=== PATIENT | female | born 1930 | race Caucasian/White ===

== ENCOUNTER 2017-09-07 11:09 | Inpatient (IN) | payer OTHER ==
[~2017-09-07] VITALS: Ht 157.5 cm; Wt 73.5 kg
[~2017-09-07 11:09] MED LIST: ASPIRIN EC81 M1 PO; ATIVAN0.5 M1 PO; ATIVAN0.5 MG PO; BACTROBAN OINT.30 GM TOP; CIPROFLOXACIN500 MG PO; ECOTRIN81 MG PO; JANUMET 500 MG-1 TAB PO; LISINOPRIL2.5 M1 PO; MASON NATURAL2000 IU PO; METHIMAZOLE5 M1 PO; METHIMAZOLE5 MG PO; MIRTAZAPINE15 M2 PO; MIRTAZAPINE15 MG PO; NYSTATIN100000 U/1 TOP; PRINIVIL 5MG5 MG PO; PROBIOTIC FORM1 EACH PO; PROTONIX 40MG T40 MG PO; PROTONIX40 M3 PO; SINGULAIR10 M1 PO; SINGULAIR10 MG PO; TRIAMTERENE AND1 CAP PO; TRIAMTERENE-HC1 EAC3 PO; VITAMIN D1000 IU PO; VITAMIN D31000 UNI2 PO
--- NOTE | 2017-09-07 11:16 | ED AMS/SEIZURE/WEAK/DIZZY ---
History of Present Illness General Chief Complaint: Altered Mental Status Stated Complaint: BIBA ALTERED MENTAL STATUS Source: patient, family, old records, EMS Exam Limitations: dementia Vital Signs & Intake/Output Vital Signs & Intake/Output Vital Signs Date Time Temp Pulse Resp B/P B/P Pulse O2 O2 Flow FiO2 Mean Ox Delivery Rate 09/09 0632 98.4 96 19 140/80 94 Room Air 09/08 2118 98.1 104 18 142/80 96 Room Air 09/08 1439 98.0 97 18 130/80 98 Room Air ED Intake and Output 09/09 0000 09/08 1200 Intake Total 1460 920 Output Total Balance 1460 920 Intake, IV 1060 800 Intake, Oral 400 120 Number 1 1 Bowel Movements Allergies Coded Allergies: No Known Allergies (09/07/17) Reconcile Medications Aspirin (Ecotrin*) 81 MG TABLET.DR 1 TAB PO DAILY HEART HEALTH (Reported) Bacillus Coagulans/Inulin (Probiotic Formula Capsule) 1 BILLION CELL-250 MG CAPSULE 1 CAP PO DAILY GI (Reported) Cholecalciferol (Vitamin D3) 1,000 UNIT TABLET 1 TAB PO DAILY VITAMIN SUPPORT (Reported) Lisinopril 2.5 MG TABLET 1 TAB PO DAILY HEART (Reported) Lorazepam (Ativan) 0.5 MG TABLET 1 TAB PO BID ANXIETY (Reported) Methimazole 5 MG TABLET 1 TAB PO DAILY THYROID (Reported) Mirtazapine 15 MG TABLET 1 TAB PO QPM SLEEP (Reported) Montelukast Sodium (Singulair) 10 MG TABLET 1 TAB PO DAILY ALLERGIES ( Reported) Pantoprazole Sodium (Protonix) 40 MG TABLET.DR 1 TAB PO DAILY GI (Reported) Sitagliptin Phos/Metformin HCl (Janumet 50-500 MG Tablet) 50 MG-500 MG TABLET 2 TAB PO DAILY DIABETES (Reported) Sitagliptin Phos/Metformin HCl (Janumet 50-1,000 MG Tablet) 50 MG-1,000 MG TABLET 1 TAB PO QPM DIABETES (Reported) Triamterene/Hydrochlorothiazid (Triamterene-Hctz 37.5-25 MG Cp) 37.5 MG-25 MG CAPSULE 1 CAP PO DAILY HEART (Reported) Triage Nurses Notes Reviewed? yes Onset: Gradual Duration: getting worse Timing: recent history Severity: severe Severity Numbers: 7 HPI: Patient is a 86-year-old female with past medical history of Alzheimer's dementia hyperthyroidism and anxiety and hypertension which EMS states that the family is concerned of worsening altered mental status for the past 3 days where patient is unable to ambulate today and family noted urinary incontinence Patient is noted to be nauseous on arrival and afebrile Patient is complaining of chills with no pain History is limited due to dementia (Mt Siddiqui) Past History Medical History Any Pertinent Medical History? see below for history Cardiovascular: hypertension Gastrointestinal: GERD Psychiatric: anxiety Endocrine: diabetes, hyperthyroidism History of MRSA: No History of VRE: No History of CDIFF: No Influenza Vaccine: 10/25/12 Surgical History Surgical History: non-contributory, hysterectomy Psychosocial History Who do you live with Spouse Services at Home Home Health Aide (P), Physical Therapy What is your primary language Japanese Family History Hx Contributory? No (Mt Siddiqui) Review of Systems Review of Systems Constitutional: Reports: see HPI, weakness. EENTM: Reports: no symptoms. Respiratory: Reports: no symptoms. Cardiovascular: Reports: no symptoms. GI: Reports: see HPI, nausea. Genitourinary: Reports: see HPI. Musculoskeletal: Reports: no symptoms. Skin: Reports: no symptoms. Neurological/Psychological: Reports: no symptoms. Hematologic/Endocrine: Reports: no symptoms. Immunologic/Allergic: Reports: no symptoms. All Other Systems: Reviewed and Negative (Mt Siddiqui) Physical Exam Physical Exam General Appearance: no apparent distress, comfortable Head: atraumatic Eyes: Bilateral: normal appearance, PERRL, EOMI. Ears, Nose, Throat: normal pharynx, normal ENT inspection, hearing grossly normal Neck: normal inspection, supple Respiratory: chest non-tender, no respiratory distress Cardiovascular: regular rate/rhythm Gastrointestinal: soft, tenderness Extremities: bilateral upper extremity full active range of motion nontender Bilateral lower extremity noted nonpitting edema and generalized weakness patient unable to perform straight leg raise on each side due to weakness Nontender dermatomes intact pedal pulse +2 Neurologic/Psych: no motor/sensory deficits, awake, outpatient facility physical therapist II-XII nml as tested, disoriented x 3 Skin: intact, normal color Core Measures ACS in differential dx? No CVA/TIA Diagnosis No Sepsis Present: No Sepsis Focused Exam Completed? No (Mt Siddiqui) Progress Differential Diagnosis: arrythmia, anemia, benign positional vertigo, CVA/stroke , dehydration, drug intoxication, encephalitis, electrolyte imbalance, GI bleed, hypoglycemia, hypoxia, intracranial Hem., intracranial mass/tumor, labrynthitis, meningitis, migraine [place], multiple sclerosis, pneumonia, postural hypotension, presyncope, post-traumatic vertigo, sepsis, seizure disorder, subarachnoid Hem., UTI/pyelo, vertebrobasilar insuff Plan of Care: Orders Procedure Date/time Status CBC WITHOUT DIFFERENTIAL 09/09 599 Active BASIC ELECTROLYTES PLUS BUN&CR 09/09 599 Active Consistent Carbohydrate 1 09/08 L Complete Consistent Carbohydrate 1 09/08 D Active SWALLOW EVALUATION 09/08 UNK Active Evaluate Swallowing 09/08 UNK Complete MISSING MEDICATION FORM 09/08 UNK Active Current Medications Sig/Shaquille Start time Last Medication Dose Stop Time Status Admin Artificial Tears 2 GTT TID 09/08 1547 AC 09/08 (Tears Natural) 2053 Ceftriaxone Sodium 1,000 MG 1200 09/08 1200 AC 09/08 (Rocephin) 09/10 1201 1213 Aspirin Buffered 81 MG DAILY 09/08 0900 AC 09/08 (Ecotrin) 0831 Cholecalciferol 1,000 IU DAILY 09/08 0900 AC 09/08 (Vitamin D) 0831 Lactobacillus 1 CAP DAILY 09/08 0900 AC 09/08 Acidophilus 0831 (Probiotic) Methimazole 5 MG DAILY 09/08 0900 AC 09/08 (Tapazole 5 MG 0831 Tablet) Montelukast Sodium 10 MG DAILY 09/08 0900 AC 09/08 (Singulair) 0831 Omeprazole 40 MG DAILY AC 09/08 0700 AC 09/09 (Prilosec) 0556 Heparin Sodium 5,000 UNIT Q8 09/07 2200 AC 09/09 (Porcine) 0556 Lorazepam 0.5 MG BID 09/07 2100 AC 09/08 (Ativan) 09/14 Mirtazapine 15 MG QPM 09/07 2100 AC 09/08 (Remeron) 205 Insulin Aspart 0 TIDAC 09/07 1700 AC 09/08 (NovoLOG) 1725 Simethicone 40 MG Q6P PRN 09/07 1545 AC 09/07 (Mylicon) 2103 Acetaminophen 650 MG Q6P PRN 09/07 1500 AC (Tylenol) Laboratory Tests 09/09/17 0609: Sodium Pending, Potassium Pending, Chloride Pending, Carbon Dioxide Pending, Anion Gap Pending, BUN Pending, Creatinine Pending, BUN/Creatinine Ratio Pending , CBC w Diff Pending, WBC Pending, RBC Pending, Hgb Pending, Hct Pending, MCV Pending, MCH Pending, MCHC Pending, RDW Pending, Plt Count Pending, MPV Pending Patient upon initial evaluation was afebrile nontoxic appearing was following all commands appropriately patient had tenderness upon palpation of abdomen Patient has concerns of generalized weakness due to patient unable to lift each leg when requested The family does present stating that they've seen a significant decline in ambulatory status and worsening lethargy and confusion for the past week No specific acute onset altered mental status or unilateral weakness slurred speech or facial droop Patient had critical findings of hyponatremia and suspecting UTI CT scan images was unremarkable for acute process Discussed patient with Dr. Buckley who advises [facility] admission Discussed disposition plan with family members who were aware and agree and have no questions Diagnostic Imaging: Viewed by Me: CT Scan. Radiology Impression: no acute abnormality Initial ED EK BPM Prior EKG: unchanged Comments: PATIENT: RADHA BELLA PRESENT AGE: 86 PATIENT ACCOUNT NO: [id number] : [birth year] LOCATION: [facility] ORDERING PHYSICIAN: Mt BERGER SERVICE DATE: 09/07/17 EXAM TYPE: CAT - CT ABD & PELVIS W/O IV CONTRAS; CT CHEST WO IV CONTRAST EXAMINATION: CT CHEST, ABDOMEN AND PELVIS WITHOUT CONTRAST CLINICAL INFORMATION: Nausea. Abdominal pain. Acute mental status change. History of dementia. COMPARISON: Chest x-ray dated 08/30/2015. CT scan of the abdomen and pelvis dated 01/02/2013. CT scan of the chest dated 11/30/2012. Thyroid ultrasound dated 12/15/2012. TECHNIQUE: Multidetector CT helical images of the chest, abdomen and pelvis were performed noncontrast. The data set was reformatted in the coronal and sagittal planes and reviewed on an independent workstation. DLP: 526.13 mGy-cm. FINDINGS: CHEST: LUNGS: There is mild centrilobular emphysema and multiple variably sized 2-5 mm solid noncalcified pulmonary nodules are seen, including in the left upper lobe (series 4, image 163, 256), right upper lobe (series 4, image 203), right lower lobe (series 4, image 274, 290, 304, 316), right middle lobe (series 4, image 309, 310, 312), and left lower lobe (series 4, image 364). When compared to 2013, several of the larger nodules were present previously as well and are not significantly changed, though comparison is slightly limited due to thicker section imaging on prior CT scan. Not all of the smaller nodules were not definitely identified on previous exam. No focal pneumonia is seen. A calcified granuloma is also seen in the left upper lobe (series 4, image 205). No effusion or pneumothorax is seen. Mild narrowing of the trachea at the thoracic inlet is seen due to mass effect by the enlarged multinodular thyroid goiter the central airways are otherwise patent and unremarkable. LYMPHOVASCULAR STRUCTURES: Aortic and heart size are normal. No pericardial effusion is seen. Aortic valvular calcifications are seen. Mild coronary artery calcifications are noted. No significant mediastinal, hilar or axillary adenopathy is present. THYROID GLAND: Enlarged thyroid gland is seen with asymmetric enlargement and substernal extension of the left lobe. Multiple ill-defined nodules are seen throughout the thyroid gland with several of the nodules demonstrating varying degrees of calcifications. Findings are most consistent with a multinodular goiter, but follow-up thyroid ultrasound is advised for further characterization and to document stability of findings from prior thyroid ultrasound dated 12/15/2012. BONES: There is diffuse osteopenia. Ossification along the anterior longitudinal ligament is seen. No suspicious bone findings. ABDOMEN AND PELVIS: Evaluation is limited due to beam hardening artifact related to the patient's arms by the sides. LIVER, GALLBLADDER, BILIARY TREE: Liver normal size and attenuation. No focal cystic or solid mass on noncontrast study. No intra-or extrahepatic ductal dilatation. The gallbladder is surgically absent. PANCREAS: Diffusely significantly atrophic. No ductal dilatation, mass, or surrounding stranding. SPLEEN: Normal size and appearance. Splenic vein patent. ADRENAL GLANDS AND KIDNEYS: Adrenal glands normal. Kidneys bilaterally symmetric in size and function. No focal mass, hydronephrosis, nephrolithiasis or perinephric stranding. URETERS AND BLADDER: Ureters decompressed and within normal limits. Bladder decompressed and essentially completely obscured by beam hardening artifact related to left total hip arthroplasty and right hip pinning. PELVIC VISCERA: Obscured by beam hardening artifact. BOWEL LOOPS: Normal. Small and large bowel loops decompressed. Appendix is not seen. ABDOMINAL WALL: There is a small fat-containing umbilical hernia. LYMPHOVASCULAR STRUCTURES: Abdominal aorta normal in caliber. No periaortic collections. Mild atherosclerotic calcifications of the aorta seen. No abdominal or pelvic adenopathy or free fluid collection. BONES: Again noted is slight enlargement and mixed lytic and sclerotic density in the right hemipelvis, similar to the prior exam, consistent with Paget's disease. No suspicious bone findings. Total left hip arthroplasty appears unchanged dating back to 2014. 2 right hip nails are in place. IMPRESSION: 1. No acute process in the chest, abdomen or pelvis. 2. Multiple bilateral 2 to 5 mm solid noncalcified pulmonary nodules as seen, some of which were also demonstrated on the previous CT scan from 11/30/2012 and remaining similar in size. Some of the smaller nodules were not previously seen on thicker section images. Given patient's apparent underlying obstructive lung disease, follow-up optional CT scan in 12 months should be considered. 3. Enlarged multinodular thyroid gland with substernal extension of the left lobe. The patient is known to have a multinodular thyroid goiter, last imaged with ultrasound in 2012. Follow-up thyroid ultrasound is recommended for reassessment. 4. Aortic valvular and mild coronary artery calcifications. 5. Small fat-containing umbilical hernia. 6. Paget's disease of the right hemipelvis. DICTATED BY: Skylar Ovalle MD DATE/TIME DICTATED:09/07/17 1245 MILLWRIGHT INSTRUCTOR:JERARDO PATIENT: RADHA BELLA PRESENT AGE: 86 PATIENT ACCOUNT NO: [id number] : [birth year] LOCATION: [facility] ORDERING PHYSICIAN: Mt BERGER SERVICE DATE: 09/07/171207 EXAM TYPE: CAT - CT CERV SPINE WO IV CONTRAST; CT HEAD WO IV CONTRAST EXAMINATION: CT OF THE HEAD WITHOUT CONTRAST CT OF THE CERVICAL SPINE WITHOUT CONTRAST CLINICAL INFORMATION: Acute mental status changes. History of dementia. Neck pain. COMPARISON: CT scan of the head dated 08/25/2014 and 11/29/2012. TECHNIQUE: Contiguous axial imaging was performed from the skullbase to vertex without intravenous administration of contrast. Coronal reformations of the head were obtained. Contiguous axial imaging was then performed from the skull base down to the thoracic inlet. Coronal and sagittal reformations of the cervical spine were obtained. DLP: 863.97 mGy-cm. FINDINGS: CT scan of the head: There is no evidence of acute intracranial hemorrhage or territorial infarction. No abnormal mass-effect or midline shift is seen. Meadows to white matter differentiation is well preserved. No extra-axial fluid collections are identified. The ventricles and sulci are mildly enlarged, consistent with involutional changes. Periventricular and deep white matter low-attenuation is again seen, unchanged, consistent with ischemic small vessel disease. The osseous structures and soft tissues are normal. The mastoid air cells and visualized portions of the paranasal sinuses are well-aerated. CT scan of the cervical spine: Normal alignment is seen with no evidence of acute fracture or dislocation. Craniocervical junction and atlantoaxial articulations are intact. Prevertebral soft tissues are normal in thickness. There is moderate degenerative disc disease at C5-C6 and C7-T1 with disc space narrowing and mild vertebral endplate spurring. Posterior disc osteophyte complex seen indenting the thecal sac without causing significant spinal stenosis at the C5-C6 level. Mild degenerative changes are seen at the atlantoaxial articulation and the craniocervical junction. There is enlargement of the thyroid gland with asymmetric enlargement and substernal extension of the left lobe noted. Multiple ill-defined nodules and masses are seen, some of which are diffusely calcified, whereas others are peripherally rim calcified and others are heterogeneous low-attenuation without calcification. Largest mass is seen in the left lobe of the thyroid gland, measuring approximately 2 cm in diameter. The included lung apices are unremarkable. IMPRESSION: CT scan of the head: No acute intracranial pathology. Mild involutional changes and changes of chronic ischemic small vessel disease are noted, similar to prior exam. CT scan of the cervical spine: No evidence of cervical spine fracture or malalignment. Moderate degenerative disc disease C5-C6 and C7-T1. Enlarged multinodular thyroid gland is seen. Previous ultrasound from 12/15/2012 had demonstrated a multinodular thyroid gland. Recommend follow-up ultrasound to document stability of findings. DICTATED BY: Skylar Ovalle MD DATE/TIME DICTATED:09/07/171225 MILLWRIGHT INSTRUCTOR:JERARDO DATE/TIME TRANSCRIBED:09/07/17 (Mt Siddiqui) Departure Departure Disposition: STILL A PATIENT Condition: Stable Clinical Impression Primary Impression: Hyponatremia Secondary Impressions: UTI (urinary tract infection) Referrals: Jhon Buckley MD (PCP/Family) Departure Forms: Customer Survey General Discharge Information Admission Note Spoke With: Jhon Buckley MD Documentation of Exam: Documentation of any treatments & extenuating circumstances including Concerns Regarding Discharge (functional status, medication knowledge or non-compliance, living conditions, etc.) that warrant an admission rather than observation: [ Patient requires IV antibiotics and IV fluids recheck labs frequent neurological checks and possible short-term rehabilitation] (Mt Siddiqui) PA/[employer] Co-Sign Statement Statement: ED Attending supervision documentation- [] I saw and evaluated the patient. I have also reviewed all the pertinent lab results and diagnostic results. I agree with the findings and the plan of care as documented in the PA's/[employer]'s documentation. [y] I have reviewed the ED Record and agree with the PA's/[employer]'s documentation. [] Additions or exceptions (if any) to the PAs/[employer]'s note and plan are summarized below: [] (Uday NULL,Zainab) Critical Care Note Critical Care Note Critical Care Time: 30-74 min (Mt Siddiqui)
[2017-09-07 11:55] LABS: ABSOLUTE BASOPHIL COUNT 0.1 /CUMM (0.0-0.2); ABSOLUTE EOSINOPHIL COUNT 0.1 /CUMM (0.0-0.7); ABSOLUTE GRANULOCYTE CT 10.4 /CUMM (1.4-6.5); ABSOLUTE LYMPH COUNT 4.1 /CUMM (1.2-3.4); ABSOLUTE MONOCYTE COUNT 0.8 /CUMM (0.10-0.60); BASOPHIL % 0.3 % (0.0-2.0); EOSINOPHIL % 0.4 % (0-5); GRANULOCYTE % 67.8 % (42.2-75.2); HEMATOCRIT 33.7 % (37-47); MEAN CORPUSCULAR HGB 24.9 PG (27.0-31.0); MEAN CORPUSCULAR HGB CONC 33.1 G/DL (33.0-37.0); MEAN CORPUSCULAR VOLUME 75.1 FL (81.0-99.0); MEAN PLATELET VOLUME 6.7 FL (7.4-10.4); PLATELET COUNT 390 /CUMM (130-400); RBC DISTRIBUTION WIDTH 15.5 % (11.5-14.5); RED BLOOD CELL CT 4.49 /CUMM (4.20-5.40); WHITE BLOOD CELL COUNT 15.3 /CUMM (4.8-10.8)
--- NOTE | 2017-09-07 12:48 | CT SCAN REPORT ---
EXAMINATION: CT OF THE HEAD WITHOUT CONTRAST CT OF THE CERVICAL SPINE WITHOUT CONTRAST CLINICAL INFORMATION: Acute mental status changes. History of dementia. Neck pain. COMPARISON: CT scan of the head dated 08/25/2014 and 11/29/2012. TECHNIQUE: Contiguous axial imaging was performed from the skullbase to vertex without intravenous administration of contrast. Coronal reformations of the head were obtained. Contiguous axial imaging was then performed from the skull base down to the thoracic inlet. Coronal and sagittal reformations of the cervical spine were obtained. DLP: 863.97 mGy-cm. FINDINGS: CT scan of the head: There is no evidence of acute intracranial hemorrhage or territorial infarction. No abnormal mass-effect or midline shift is seen. Meadows to white matter differentiation is well preserved. No extra-axial fluid collections are identified. The ventricles and sulci are mildly enlarged, consistent with involutional changes. Periventricular and deep white matter low-attenuation is again seen, unchanged, consistent with ischemic small vessel disease. The osseous structures and soft tissues are normal. The mastoid air cells and visualized portions of the paranasal sinuses are well-aerated. CT scan of the cervical spine: Normal alignment is seen with no evidence of acute fracture or dislocation. Craniocervical junction and atlantoaxial articulations are intact. Prevertebral soft tissues are normal in thickness. There is moderate degenerative disc disease at C5-C6 and C7-T1 with disc space narrowing and mild vertebral endplate spurring. Posterior disc osteophyte complex seen indenting the thecal sac without causing significant spinal stenosis at the C5-C6 level. Mild degenerative changes are seen at the atlantoaxial articulation and the craniocervical junction. There is enlargement of the thyroid gland with asymmetric enlargement and substernal extension of the left lobe noted. Multiple ill-defined nodules and masses are seen, some of which are diffusely calcified, whereas others are peripherally rim calcified and others are heterogeneous low-attenuation without calcification. Largest mass is seen in the left lobe of the thyroid gland, measuring approximately 2 cm in diameter. The included lung apices are unremarkable. IMPRESSION: CT scan of the head: No acute intracranial pathology. Mild involutional changes and changes of chronic ischemic small vessel disease are noted, similar to prior exam. CT scan of the cervical spine: No evidence of cervical spine fracture or malalignment. Moderate degenerative disc disease C5-C6 and C7-T1. Enlarged multinodular thyroid gland is seen. Previous ultrasound from 12/15/2012 had demonstrated a multinodular thyroid gland. Recommend follow-up ultrasound to document stability of findings.
[2017-09-07] MEDS ORDERED: JANUMET 50-5001 EACH PO (12:59)
[2017-09-07] MEDS ORDERED: JANUMET 50-1,01 EACH PO (13:00)
--- NOTE | 2017-09-07 13:31 | CT SCAN REPORT ---
EXAMINATION: CT CHEST, ABDOMEN AND PELVIS WITHOUT CONTRAST CLINICAL INFORMATION: Nausea. Abdominal pain. Acute mental status change. History of dementia. COMPARISON: Chest x-ray dated 08/30/2015. CT scan of the abdomen and pelvis dated 01/02/2013. CT scan of the chest dated 11/30/2012. Thyroid ultrasound dated 12/15/2012. TECHNIQUE: Multidetector CT helical images of the chest, abdomen and pelvis were performed noncontrast. The data set was reformatted in the coronal and sagittal planes and reviewed on an independent workstation. DLP: 526.13 mGy-cm. FINDINGS: CHEST: LUNGS: There is mild centrilobular emphysema and multiple variably sized 2-5 mm solid noncalcified pulmonary nodules are seen, including in the left upper lobe (series 4, image 163, 256), right upper lobe (series 4, image 203), right lower lobe (series 4, image 274, 290, 304, 316), right middle lobe (series 4, image 309, 310, 312), and left lower lobe (series 4, image 364). When compared to 2013, several of the larger nodules were present previously as well and are not significantly changed, though comparison is slightly limited due to thicker section imaging on prior CT scan. Not all of the smaller nodules were not definitely identified on previous exam. No focal pneumonia is seen. A calcified granuloma is also seen in the left upper lobe (series 4, image 205). No effusion or pneumothorax is seen. Mild narrowing of the trachea at the thoracic inlet is seen due to mass effect by the enlarged multinodular thyroid goiter the central airways are otherwise patent and unremarkable. LYMPHOVASCULAR STRUCTURES: Aortic and heart size are normal. No pericardial effusion is seen. Aortic valvular calcifications are seen. Mild coronary artery calcifications are noted. No significant mediastinal, hilar or axillary adenopathy is present. THYROID GLAND: Enlarged thyroid gland is seen with asymmetric enlargement and substernal extension of the left lobe. Multiple ill-defined nodules are seen throughout the thyroid gland with several of the nodules demonstrating varying degrees of calcifications. Findings are most consistent with a multinodular goiter, but follow-up thyroid ultrasound is advised for further characterization and to document stability of findings from prior thyroid ultrasound dated 12/15/2012. BONES: There is diffuse osteopenia. Ossification along the anterior longitudinal ligament is seen. No suspicious bone findings. ABDOMEN AND PELVIS: Evaluation is limited due to beam hardening artifact related to the patient's arms by the sides. LIVER, GALLBLADDER, BILIARY TREE: Liver normal size and attenuation. No focal cystic or solid mass on noncontrast study. No intra-or extrahepatic ductal dilatation. The gallbladder is surgically absent. PANCREAS: Diffusely significantly atrophic. No ductal dilatation, mass, or surrounding stranding. SPLEEN: Normal size and appearance. Splenic vein patent. ADRENAL GLANDS AND KIDNEYS: Adrenal glands normal. Kidneys bilaterally symmetric in size and function. No focal mass, hydronephrosis, nephrolithiasis or perinephric stranding. URETERS AND BLADDER: Ureters decompressed and within normal limits. Bladder decompressed and essentially completely obscured by beam hardening artifact related to left total hip arthroplasty and right hip pinning. PELVIC VISCERA: Obscured by beam hardening artifact. BOWEL LOOPS: Normal. Small and large bowel loops decompressed. Appendix is not seen. ABDOMINAL WALL: There is a small fat-containing umbilical hernia. LYMPHOVASCULAR STRUCTURES: Abdominal aorta normal in caliber. No periaortic collections. Mild atherosclerotic calcifications of the aorta seen. No abdominal or pelvic adenopathy or free fluid collection. BONES: Again noted is slight enlargement and mixed lytic and sclerotic density in the right hemipelvis, similar to the prior exam, consistent with Paget's disease. No suspicious bone findings. Total left hip arthroplasty appears unchanged dating back to 2014. 2 right hip nails are in place. IMPRESSION: 1. No acute process in the chest, abdomen or pelvis. 2. Multiple bilateral 2 to 5 mm solid noncalcified pulmonary nodules as seen, some of which were also demonstrated on the previous CT scan from 11/30/2012 and remaining similar in size. Some of the smaller nodules were not previously seen on thicker section images. Given patient's apparent underlying obstructive lung disease, follow-up optional CT scan in 12 months should be considered. 3. Enlarged multinodular thyroid gland with substernal extension of the left lobe. The patient is known to have a multinodular thyroid goiter, last imaged with ultrasound in 2012. Follow-up thyroid ultrasound is recommended for reassessment. 4. Aortic valvular and mild coronary artery calcifications. 5. Small fat-containing umbilical hernia. 6. Paget's disease of the right hemipelvis.
--- NOTE | 2017-09-07 14:21 | History & Physical ---
Ronnie Hooker 09/07/17 1420: General Information and HPI MD Statement: I have seen and personally examined RADHA ALVARADO and documented this H& P. The patient is a 86 year old F who presented with a patient stated chief complaint of [worsening mental status]. Source of Information: patient, family Exam Limitations: confusion, dementia, language barrier History of Present Illness: Patient is an 86 year old female w/PMH of Alzheimer's dementia, hyperthyroidism w/ multiple thyroid nodules, hypertension, anxiety, diabetes type II who presented to the ER brought by EMS at the behest of her family for three days of worsening altered mental status and weakness. The family also commented on urinary incontinence and possible loose stool ("dripping"). The family denied that the patient had any chest pain, shortness of breath, headaches, changes in vision, hemoptysis, melena. Allergies/Medications Allergies: Coded Allergies: No Known Allergies (09/07/17) Home Med list Aspirin (Ecotrin*) 81 MG TABLET.DR 1 TAB PO DAILY HEART HEALTH (Reported) Bacillus Coagulans/Inulin (Probiotic Formula Capsule) 1 BILLION CELL-250 MG CAPSULE 1 CAP PO DAILY GI (Reported) Cholecalciferol (Vitamin D3) 1,000 UNIT TABLET 1 TAB PO DAILY VITAMIN SUPPORT (Reported) Lisinopril 2.5 MG TABLET 1 TAB PO DAILY HEART (Reported) Lorazepam (Ativan) 0.5 MG TABLET 1 TAB PO BID ANXIETY (Reported) Methimazole 5 MG TABLET 1 TAB PO DAILY THYROID (Reported) Mirtazapine 15 MG TABLET 1 TAB PO QPM SLEEP (Reported) Montelukast Sodium (Singulair) 10 MG TABLET 1 TAB PO DAILY ALLERGIES ( Reported) Pantoprazole Sodium (Protonix) 40 MG TABLET.DR 1 TAB PO DAILY GI (Reported) Sitagliptin Phos/Metformin HCl (Janumet 50-500 MG Tablet) 50 MG-500 MG TABLET 2 TAB PO DAILY DIABETES (Reported) Sitagliptin Phos/Metformin HCl (Janumet 50-1,000 MG Tablet) 50 MG-1,000 MG TABLET 1 TAB PO QPM DIABETES (Reported) Triamterene/Hydrochlorothiazid (Triamterene-Hctz 37.5-25 MG Cp) 37.5 MG-25 MG CAPSULE 1 CAP PO DAILY HEART (Reported) Compliance With Home Meds: UNKNOWN ("good" per family) Past History Travel History Traveled to [place] past 21 day No Medical History Neurological: dementia Cardiovascular: hypertension Gastrointestinal: GERD Renal: urinary incontinence Psychiatric: anxiety Endocrine: diabetes, hyperthyroidism History of MRSA: No History of VRE: No History of CDIFF: No Influenza Vaccine: 10/25/12 Surgical History Surgical History: non-contributory, hysterectomy Past Family/Social History Family History Relations & Conditions if any Relation not specified for: *No pertinent family history Psychosocial History Who Do You Live With? spouse Services at Home: Home Health Aide (P), Physical Therapy Primary Language: Maltese ETOH Use: 6 Living Will? yes Power of Silk Screen [employer]inter/HCP? 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 Ambulation: walker (currently nonambulatory) IADLs Needs Assist: shopping, housework, finances, food prep, telephone, transportation, medication admin. Review of Systems Review of Systems Constitutional: Reports: see HPI, weakness. Denies: chills, fever, unexplained weight loss. EENTM: Reports: no symptoms. Cardiovascular: Reports: no symptoms. Respiratory: Reports: no symptoms. GI: Reports: bloating, diarrhea (probable based on family), bowel incontinence, nausea. Denies: constipation, melena, bloody stool, vomiting. Genitourinary: Reports: see HPI, urgency. Musculoskeletal: Reports: see HPI. Skin: Reports: no symptoms. Neurological/Psychological: Reports: anxiety, dementia. Hematologic/Endocrine: Reports: no symptoms. Exam & Diagnostic Data Last 24 Hrs of Vital Signs/I&O Vital Signs Date Time Temp Pulse Resp B/P B/P Pulse O2 O2 Flow FiO2 Mean Ox Delivery Rate 09/07 1650 97.8 97 20 106/52 97 Room Air 09/07 1552 98.0 95 18 153/70 100 Room Air Room Air 09/07 1315 98.1 86 18 139/66 99 Room Air Room Air 09/07 1153 97 Room Air 09/07 1112 98.1 101 18 153/73 97 Room Air Intake & Output 09/07 1600 09/07 0800 09/07 0000 Intake Total 1000 Output Total Balance 1000 Intake, IV 1000 Physical Exam General Appearance Alert, Cooperative, No Acute Distress, oriented only to self, family members, location. Not to year or president. Skin No Rashes, No Breakdown Skin Temp/Moisture Exam: Warm/Dry HEENT Atraumatic, PERRLA, EOMI Neck Supple, No JVD, thyromegaly, previously known Lymphatic Axillary nl, Cervical nl Cardiovascular Regular Rate, Normal S1, Normal S2, systolic murmur, previously known Lungs Clear to Auscultation, Normal Air Movement Abdomen Normal Bowel Sounds, Soft, No Tenderness, No Hepatospenomegaly Neurological Sensation Intact, Cranial Nerves 3-12 NL, strength 4/5 X4 ext Extremities No Clubbing, No Cyanosis, slight LE edema, LLE Vascular Normal Pulses, Pulses Symmetrical Last 24 Hrs of Labs/Romie: Laboratory Tests 09/07/17 1610: Lactic Acid 2.6 H, Acetone Level NEGATIVE 09/07/17 1135: Urine Color YEL, Urine Clarity CLDY H, Urine pH 6.0, Ur Specific [place] 1.025, Urine Protein 100 H, Urine Ketones TRACE H, Urine Nitrite NEG, Urine Bilirubin NEG, Urine Urobilinogen 0.2, Ur Leukocyte Esterase LARGE H, Ur Microscopic SEDIMENT EXAMINED, Urine RBC FEW H, Urine WBC PACKD H, Urine Hemoglobin MOD H , Urine Glucose NEG 09/07/17 1135: Urine Osmolality 227 L, Ur Random Creatinine 87.1, Ur Random Sodium 50, Ur Random Potassium 17.8, Fraction Sodium Excret 0.6 09/07/17 1125: Anion Gap 17 H, Estimated GFR 39 L, BUN/Creatinine Ratio 11.5, Glucose 166 H, Hemoglobin A1c 7.5 H, Serum Osmolality 257 L, Lactic Acid 1.9, Calcium 8.8, Total Bilirubin 0.8, AST 15, ALT 20, Alkaline Phosphatase 125, Troponin I < 0.01 , Total Protein 7.2, Albumin 4.1, Globulin 3.1, Albumin/Globulin Ratio 1.3, TSH 2.050, Free T4 1.80, CBC w Diff MAN DIFF ORDERED, RBC 4.49, MCV 75.1 L, MCH 24.9 L, MCHC 33.1, RDW 15.5 H, MPV 6.7 L, Gran % 67.8, Lymphocytes % 26.5, Monocytes % 5.0, Eosinophils % 0.4, Basophils % 0.3, Absolute Granulocytes 10.4 H, Absolute Lymphocytes 4.1 H, Absolute Monocytes 0.8 H, Absolute Eosinophils 0.1, Absolute Basophils 0.1, Platelet Estimate ADEQUATE, Hypochromic-Microcytic 1+, Anisocytosis 1+ Microbiology 09/07 1125 URINE ROUT: Urine Culture - RECD Diagnostic Data EKG Results Sinus rhythm Other Results SERVICE DATE: 09/07/17-1204 EXAM TYPE: CAT - CT CERV SPINE WO IV CONTRAST; CT HEAD WO IV CONTRAST IMPRESSION: CT scan of the head: No acute intracranial pathology. Mild involutional changes and changes of chronic ischemic small vessel disease are noted, similar to prior exam. CT scan of the cervical spine: No evidence of cervical spine fracture or malalignment. Moderate degenerative disc disease C5-C6 and C7-T1. Enlarged multinodular thyroid gland is seen. Previous ultrasound from 12/15/2012 had demonstrated a multinodular thyroid gland. Recommend follow-up ultrasound to document stability of findings. Assessment/Plan Assessment: 86 year old patient with past medical history of Alzheimer's dementia, hyperthyroidism w/ multiple thyroid nodules, hypertension, anxiety, diabetes type 2 who was brought to the ER by EMS for 3 days of worsening altered mental status and progressive weakness, including urinary incontinence and loose stool. Problem List/Plan: TRE due to dehydration -Admit to general medicine floor -Vitals and I/O monitoring per protocol -continuous IVF with NS 100 cc/hr -Pending nephro consult in the AM UTI -continue ceftriaxone 1g daily for empiric coveage of UTI (based on UA & leukocytosis) -pending urine culture (Suspected) Hypotonic Hyponatremia -check BEP @ 2200; correct Na<7meq/24 hours -Pt has slight anion gap (17) without signs of DKA. Acetone toxicology was negative, suggestive that patient is NOT in DKA Weakness -pt below baseline functioning -PT consult in the AM PMH of [place] dementia, microcytic anemia, hyperthyroidism, hypertension, anxiety, diabetes type 2 -hold lisinopril/hctz and oral hypoglycemics -continue other home medicines -simethecone PRN for abdominal gas pain, per family (chronic problem, never addressed before) -pain per pathway DVT prophylaxis: Subcu heparin and ALPS Complete carbohydrate 1 Patient is DNR/DNI As Ranked By This Provider Problem List: 1. UTI (urinary tract infection) 2. Hyponatremia syndrome 3. Altered mental status Core Measures/Misc (11/01) Acute Coronary Syndrome ACS Diagnosis: No Congestive Heart Failure Congestive Heart Failure Diagnosis No Cerebrovascular Accident CVA/TIA Diagnosis: No VTE (View Protocol) VTE Risk Factors Age>40 No Mechanical VTE Prophylaxis d/t N/A MechProphylax Ordered No VTE Pharm Prophylaxis d/t NA PharmProphylax ordered Sepsis (View protocol) Sepsis Present: No If YES complete Sepsis Event Note If YES complete Sepsis Event Note Tika Sifuentes 09/07/17 1537: Core Measures/Misc (11/01) Sepsis (View protocol) If YES complete Sepsis Event Note If YES complete Sepsis Event Note Resident Review Statement Resident Statement: examined this patient, discussed with mba intern, agreed with mba intern, discussed with family, reviewed EMR data (avail), discussed with nursing , discussed with case mgmt, reviewed images, amended to note Other Findings: Ms. Alvarado is a 86yo F w/ PMH of baseline [place] dementia, hyperthyrodism w/ multiple thyroid nodules, HTN, Anxiety, T2DM, presented to ER brought by family cc of worsening AMS x 3 days, along w/ weakness to ambulate with walker, urinary incontinence, and possible loose stool (dripping). During clinical interaction, patient was only AO to self, family members, location, but not to time and president. Most history was obtained from family members at bedside. -Baselines: ambulates freely w/ walker, with independent ADLs During our clinical interaction, patient denied recent travel/sick contacts, fever/lightheadedness/diaphoresis/night sweat/weight change/cough/SOB/Chest Pain /Palpitation/Abdominal pain/bowel movement or urinary abnormality, or other skin /musculoskeletal/neurological/mood disorders, or dietary/appetite change. -Smoking: denied -Alcohol: denied -Rec Drugs: denied On admission, Vitals: Stable afebrile, tachycardia 101, BP 153/73, 97% on room air Physical exam -Gen.: AO x self/setting/family, not to time/president, cooperative, no distress , -HEENT: NCAT, PERRL, EOMI, anicteric sclera, moist mucous membranes -Neck: Supple, no JVD, trachea midline, mild accessory respiratory muscle use -Cardio: Normal S1/S2 some systolic murmurs/gallops/rubs -Pulmonary: grossly normal air movement w/ clear auscultation -Abdomen: Soft, gasy tender on palpation, however benign. -Neuro: Awake and alert, cranial nerves II through XII grossly intact -Extremity: Normal pulses/capillary refill, no cyanosis/clubbing/edema -CBC: Leukocytosis 15.3, H/H 11.2/33.7, PLT 390, no granulocytosis/bandemia -BMP: Hyponatremia 123, K 3.8, Cl 79, Cr 1.3 (baseline 1.0), Glucose 166, HbA1c 7.5 (9.1), Serum OSM 257, -UA/Microbiology: LE/WBC +ve, urine OSM 227, Na 50, FeNa 0.6 -Head/Cervical/Chest/Ab Pelvis CT: No acute issues. -EKG: Tachycardia w/o significant ST-T abnormalities. -Last Echo: 11/2012 Abnormal relaxation filling pattern of the left ventricle for age (stage 1 diastolic dysfunction). Normal right ventricular size and function. -Interventions in ER: Ceftriaxone x 1, NS Bolus x 1 Based on patient's history of poor oral intake, questionable diarrhea, and lab w / decreased FeNa <1, patient's more likely aligh w/ hypovolemic hyponatremia, however SIADH/Hypoaldosterism would still be of differential Dx. She would need volume repletion and recheck BEP to monitor Na. Problem list/Assessment/Hospital Course: #TRE 2/2 dehydration #uncomplicated UTI w/ leukocytosis #Hypotonic Hyponatremia 2/2 hypovolemia/Diuretic use? #PMH of baseline [place] dementia, microcytic anemia, hyperthyrodism w/ multiple thyroid nodules, HTN, Anxiety, T2DM - Admit to general medicine - Vitals per protocol, monitor I&O per protocol. - Novolog SS/AccuChek TIDAC - PT/OT in the AM - Continue home meds however holding both lisinopril/HCTZ, also holding oral hypoglycemics - Continuous IVF 100cc/hr - Recheck BEP at 2200, goal correction of Na <7meq/24hours - Will continue ceftriaxone 1000mg daily for empiric coverage of UTI (patient was demented however has urinary incontinence w/ positive UA & leukocytosis), uncomplicated with fever/SIRS. - Simethocone PRN for ab gas, per family this has been a chronic problem for patient. - Pending urine culture - Pending cortisol AM. - Patient has slight anion gap 17, without signs of DKA, her ketone in urine could possible be due to decreased oral intake. She would be at low risk of DKA however would still check for acetone to confirm. - Pending Nephro consult in the AM if needed. - Pain per pathway DVT prophylaxis Heparin SC + ALPS Diabetic Diet CC1 IV Access: Peripheral IV DNR/DNI
--- NOTE | 2017-09-07 16:29 | PN- Student ---
Subjective Subjective: History and Physical Exam was recorded by medical student. Source of information: family ( and 2 daughters) HPI: 86-year-old female with PMH of Azheimer dementia, diabetics, hypertension, hyperthyroidism, and GERD presented to ED with 1 week of right leg weakness and difficulty walking. Patient was only oriented to Place, but not to Person and Time. Patient had 2 episodes of mechanical fall in the past. One time at 3 weeks ago when she fell down in the bathroom and the other time was at 2 weeks ago when patient fell down when getting out bed. Both time patient was able to walk back. The symptoms was getting progressively worse 3 days ago when her daughter reported of difficulty walking that required 3 family members to walk her. She also had bedwetting and dripping of loose stool, and she was confused more than usual the past 3 days as well. She also had abdominal pain that lasted for a while. Her daughter denied that she had fever, headache, weight change, but had increase in frequency of urination, tingling and numbness on her right lower foot. PMH: - Other illnesses: Azheimer dementia, hypertension, hyperthyroidism, diabetics, GERD, valvular heart diseases. - Medications: Aspirin (Ecotrin*) 81 MG TABLET.DR 1 TAB PO DAILY HEART HEALTH (Reported) Bacillus Coagulans/Inulin (Probiotic Formula Capsule) 1 BILLION CELL-250 MG CAPSULE 1 CAP PO DAILY GI (Reported) Cholecalciferol (Vitamin D3) 1,000 UNIT TABLET 1 TAB PO DAILY VITAMIN SUPPORT (Reported) Lisinopril 2.5 MG TABLET 1 TAB PO DAILY HEART (Reported) Lorazepam (Ativan) 0.5 MG TABLET 1 TAB PO BID ANXIETY (Reported) Methimazole 5 MG TABLET 1 TAB PO DAILY THYROID (Reported) Mirtazapine 15 MG TABLET 1 TAB PO QPM SLEEP (Reported) Montelukast Sodium (Singulair) 10 MG TABLET 1 TAB PO DAILY ALLERGIES ( Reported) Pantoprazole Sodium (Protonix) 40 MG TABLET.DR 1 TAB PO DAILY GI (Reported) Sitagliptin Phos/Metformin HCl (Janumet 50-500 MG Tablet) 50 MG-500 MG TABLET 2 TAB PO DAILY DIABETES (Reported) Sitagliptin Phos/Metformin HCl (Janumet 50-1,000 MG Tablet) 50 MG-1,000 MG TABLET 1 TAB PO QPM DIABETES (Reported) Triamterene/Hydrochlorothiazid (Triamterene-Hctz 37.5-25 MG Cp) 37.5 MG-25 MG CAPSULE 1 CAP PO DAILY HEART (Reported) - Allergies: sulfa drugs. - Prior surgeries/hospitalization: not available. Family History: Not available. Social History: - Smoking: none. - Alcohol: none. - Recreational drugs use: none. - Diet: selective picky on the type of food that she ate. But family reinforces her to follow healthy diet. - Patient needs to use walker when moving around. ROS: - HEENT: no headache, no vision change, decrease hearing. Pt also had a black wig on. - Heart: no palpitation, no chest tightness. - Lungs: no SOB, no chest pain, no cough. - GI/: abdominal gas pain, loose stool right on bed. - MSK: tingling numbness on right leg, no muscle or joint pain. Objective Objective: Physical Exam: - Patient is only oriented to Place, not much on Person and Time, anxious and mild acute distress. - HEENT: PERRLA, EOMI, normal light reflex, no pallor, no lymphadenopathy. - Heart: grade 2 systolic murmur. - Lungs: CTA bilaterally. - Abdomen: normal bowel sound, soft, diffuse mild tenderness upon palpation. - Skin: dry, warm. - Extremities: . Left le/5 muscle strength, sensation intact. . Right le/5 muscle strength, sensation intact. . +2 dorsalic pedis bilaterally. Labs: - CBC showed leukocytosis 15.2, chemistry showed hyponatremia 123, high glucose 166, high HbA1c 7.5, normal FeNa 0.6, low serum osm 257 and high creatinine 1.3. - UA: positive leukocytes esterases, trace ketones and proteins. Imaging: - CT of cervical spine: Moderate degenerative disc disease C5-C6 and C7-T1. Enlarged multinodular thyroid gland is seen. - CT of chest: Multiple bilateral 2 to 5 mm solid noncalcified pulmonary nodules. Aortic valvular and mild coronary artery calcifications. Small fat-containing umbilical hernia, Paget's disease of the right hemipelvis - Previous Echo: mild aortic stenosis, trace of mitral regurgitation, trace of aotric regurgitation. Results Results: Laboratory Tests 09/07/17 1610: Lactic Acid Pending, Acetone Level NEGATIVE 09/07/17 1135: Urine Color YEL, Urine Clarity CLDY H, Urine pH 6.0, Ur Specific [place] 1.025, Urine Protein 100 H, Urine Ketones TRACE H, Urine Nitrite NEG, Urine Bilirubin NEG, Urine Urobilinogen 0.2, Ur Leukocyte Esterase LARGE H, Ur Microscopic SEDIMENT EXAMINED, Urine RBC FEW H, Urine WBC PACKD H, Urine Hemoglobin MOD H , Urine Glucose NEG 09/07/17 1135: Urine Osmolality 227 L, Ur Random Creatinine 87.1, Ur Random Sodium 50, Ur Random Potassium 17.8, Fraction Sodium Excret 0.6 09/07/17 1125: Anion Gap 17 H, Estimated GFR 39 L, BUN/Creatinine Ratio 11.5, Glucose 166 H, Hemoglobin A1c 7.5 H, Serum Osmolality 257 L, Lactic Acid 1.9, Calcium 8.8, Total Bilirubin 0.8, AST 15, ALT 20, Alkaline Phosphatase 125, Troponin I < 0.01 , Total Protein 7.2, Albumin 4.1, Globulin 3.1, Albumin/Globulin Ratio 1.3, TSH 2.050, Free T4 1.80, CBC w Diff MAN DIFF ORDERED, RBC 4.49, MCV 75.1 L, MCH 24.9 L, MCHC 33.1, RDW 15.5 H, MPV 6.7 L, Gran % 67.8, Lymphocytes % 26.5, Monocytes % 5.0, Eosinophils % 0.4, Basophils % 0.3, Absolute Granulocytes 10.4 H, Absolute Lymphocytes 4.1 H, Absolute Monocytes 0.8 H, Absolute Eosinophils 0.1, Absolute Basophils 0.1, Platelet Estimate ADEQUATE, Hypochromic-Microcytic 1+, Anisocytosis 1+ Microbiology 09/07 1124 URINE ROUT: Urine Culture - RECD Assessment/Plan Assessment: Summary: 86-year-old female with PMH of Azheimer dementia, diabetics, hypertension, hyperthyroidism, and GERD presented to ED with 1 week of right leg weakness and difficulty walking, in which 3 days ago the symptoms got progressively worse with bed wetting, drippling of stool on bed and difficulty walking required assistance from 3 people. Labs on admission showed significant leukocytosis 15.3 , hyponatremia 123, high glucose 166, high HbA1c 7.5, normal FeNa 0.6, low serum osm 257 and high creatinine 1.3, positive leukocyte esterase and trace of urine ketones. Imaging showed multinodular thyroid goiter and no other acute findings. PE was unremarkable except decrease muscle strength on right lower leg. Problem list: - Hypotonic hyponatremia. - UTI - Dementia - Possible TRE. - Hyperthyroidism. - Diabetics. - Hypertension. Plan: - Hydrate patient by giving IVF. - Continue antibiotics. - Continue home meds except diuretics Furosemides. - Follow up on urine culture for possible UTI - Nephrology consult - Patient is DNR/DNI.
[2017-09-07 16:50] VITALS: BP 106/52
--- NOTE | 2017-09-07 20:06 | Admission Certification ---
Admission Certification Certification Statement - As attending physician, I certify that at the time of - admission, based on clinical presentation, severity of - symptoms, need for further diagnostic testing and - therapeutic interventions, and risk of adverse outcomes - without in-hospital treatment, in my clinical assessment, - this patient requires an acute hospital stay for a minimum - of two nights or longer. I have also considered psychsocial - factors such as support system, advanced age, financial - issues, cognitive issues, and failed out-patient treatments, - past re-admission history, safety of patient, and lack of - compliance as applicable. Specific rationale supporting this admission is: Change in mental status, weakness. Dirty urine possible urinary tract infection , diarrhea, dehydration, hyponatremia in the patient with Alzheimer's disease
--- NOTE | 2017-09-07 20:10 | PN- Att Addend ---
Attending Addendum Attending Brief Note 86-year-old white female cared by her at home with history of Alzheimer' s dementia. For the last 2 or 3 days not feeling well not eating or drinking much. So weak that she did not want to ambulate. The urine seem to be different looking and she might have been a little incontinent. Also some diarrhea was brought into the emergency room found to be hyponatremic. With a dirty urine with a very possible urinary tract infection, have to rule out sepsis of urological origin. Have to also check the stools. Will have gentle hydration. Will get nephrology input regarding the hyponatremia. We will treat a urinary tract infection. After she is stable we will get PT evaluation Current Medications Sig/Shaquille Start time Last Medication Dose Route Stop Time Status Admin Acetaminophen 650 MG Q6P PRN 09/07 1500 AC PO Aspirin Buffered 81 MG DAILY 09/08 0900 AC PO Ceftriaxone Sodium 1,000 MG 1200 09/08 1200 AC IV Ceftriaxone Sodium 0 .STK-MED ONE 09/07 1231 DC .ROUTE Ceftriaxone Sodium 1,000 MG ONCE ONE 09/07 1230 DC 09/07 IV 09/07 1231 1232 Cholecalciferol 1,000 IU DAILY 09/08 0900 AC PO Heparin Sodium 5,000 UNIT Q8 09/07 2200 AC (Porcine) SC Insulin Aspart 0 TIDAC 09/07 1700 AC SC Lactobacillus 1 CAP DAILY 09/08 09 AC Acidophilus PO Lisinopril 2.5 MG DAILY 09/08 09 CAN PO Lorazepam 0.5 MG BID 09/07 2100 AC PO 09/14 2058 Methimazole 5 MG DAILY 09/08 09 AC PO Mirtazapine 15 MG QPM 09/07 2100 AC PO Montelukast Sodium 10 MG DAILY 09/08 0900 AC PO Omeprazole 40 MG DAILY AC 09/08 0700 AC PO Simethicone 40 MG Q6P PRN 09/07 1545 AC 09/07 PO 1604 Sodium Chloride 1,000 ML Q10H 09/07 1600 AC 09/07 IV 09/08 1159 1755 Sodium Chloride 1,000 ML BOLUS ONE 09/07 1230 DC 09/07 IV 09/07 1329 1232 Laboratory Tests 09/07/17 1610: Lactic Acid 2.6 H, Acetone Level NEGATIVE 09/07/17 1135: Urine Color YEL, Urine Clarity CLDY H, Urine pH 6.0, Ur Specific [place] 1.025, Urine Protein 100 H, Urine Ketones TRACE H, Urine Nitrite NEG, Urine Bilirubin NEG, Urine Urobilinogen 0.2, Ur Leukocyte Esterase LARGE H, Ur Microscopic SEDIMENT EXAMINED, Urine RBC FEW H, Urine WBC PACKD H, Urine Hemoglobin MOD H , Urine Glucose NEG 09/07/17 1135: Urine Osmolality 227 L, Ur Random Creatinine 87.1, Ur Random Sodium 50, Ur Random Potassium 17.8, Fraction Sodium Excret 0.6 09/07/17 1125: Anion Gap 17 H, Estimated GFR 39 L, BUN/Creatinine Ratio 11.5, Glucose 166 H, Hemoglobin A1c 7.5 H, Serum Osmolality 257 L, Lactic Acid 1.9, Calcium 8.8, Total Bilirubin 0.8, AST 15, ALT 20, Alkaline Phosphatase 125, Troponin I < 0.01 , Total Protein 7.2, Albumin 4.1, Globulin 3.1, Albumin/Globulin Ratio 1.3, TSH 2.050, Free T4 1.80, CBC w Diff MAN DIFF ORDERED, RBC 4.49, MCV 75.1 L, MCH 24.9 L, MCHC 33.1, RDW 15.5 H, MPV 6.7 L, Gran % 67.8, Lymphocytes % 26.5, Monocytes % 5.0, Eosinophils % 0.4, Basophils % 0.3, Absolute Granulocytes 10.4 H, Absolute Lymphocytes 4.1 H, Absolute Monocytes 0.8 H, Absolute Eosinophils 0.1, Absolute Basophils 0.1, Platelet Estimate ADEQUATE, Hypochromic-Microcytic 1+, Anisocytosis 1+ Vital Signs Date Time Temp Pulse Resp B/P B/P Pulse O2 O2 Flow FiO2 Mean Ox Delivery Rate 09/07 1650 97.8 97 20 106/52 97 Room Air 09/07 1552 98.0 95 18 153/70 100 Room Air Room Air 09/07 1315 98.1 86 18 139/66 99 Room Air Room Air 09/07 1153 97 Room Air 09/07 1112 98.1 101 18 153/73 97 Room Air
[2017-09-07 21:38] VITALS: BP 124/68
[2017-09-08 06:18] VITALS: BP 140/78
--- NOTE | 2017-09-08 07:06 | PN- Housestaff ---
Subjective Follow-up For: worsening mental status Complaints: gas pain, "choking" sensation Subjective: Patient was seen and examined at the bedside. Daugher was present at bedside as well. Patient continues to complain of gas pain. Per nurse, patient has been incontinent of urine often and with large volumen, and has had runny stool since admission. Patient and family would like some relief. Review of Systems Constitutional: Reports: see HPI. Cardiovascular: Reports: no symptoms. Respiratory: Reports: no symptoms. Gastrointestinal: Reports: bloating, diarrhea. Genitourinary: Reports: see HPI, urgency. Musculoskeletal: Reports: no symptoms. Skin: Reports: no symptoms. Neurological/Psychological: Reports: anxiety, cognitive dysfunction, confusion, pre-existing deficit, weakness. Hematologic/Endocrine: Reports: no symptoms. Immunologic/Allergic: Reports: no symptoms. Objective Last 24 Hrs of Vital Signs/I&O Vital Signs Date Time Temp Pulse Resp B/P B/P Pulse O2 O2 Flow FiO2 Mean Ox Delivery Rate 09/08 1439 98.0 97 18 130/80 98 Room Air 09/08 0618 98.0 93 21 140/78 96 Room Air 09/07 2138 98.1 92 22 124/68 97 Room Air Intake & Output 09/08 1600 09/08 0800 09/08 0000 Intake Total 094 272 0314 Output Total Balance 228 712 0605 Intake, IV 675 800 800 Intake, Oral 300 120 400 Number 1 6 Bowel Movements Patient 162 lb Weight Weight Reported by Patient Measurement Method Physical Exam General Appearance: Alert, Oriented X3, Cooperative, Mild Distress Skin: No Rashes, No Breakdown Skin Temp/Moisture Exam: Warm/Dry HEENT: Atraumatic, PERRLA, EOMI Neck: Supple, No JVD, No thryomegaly Lymphatic: Cervical nl Cardiovascular: Regular Rate, Normal S1, Normal S2, pansystolic murmur Lungs: Clear to Auscultation, Normal Air Movement Abdomen: Soft, No Hepatospenomegaly, mild tenderness to palpation Neurological: Strength at 5/5 X4 Ext, Normal Tone, Sensation Intact Extremities: No Clubbing, No Cyanosis, No Edema, Normal Pulses Vascular: Normal Pulses, Pulses Symmetrical Current Medications: Current Medications Sig/Shaquille Start time Last Medication Dose Route Stop Time Status Admin Acetaminophen 650 MG Q6P PRN 09/07 1500 AC PO Artificial Tears 2 GTT TID 09/08 1547 AC 09/08 OPH 1725 Aspirin Buffered 81 MG DAILY 09/08 0900 AC 09/08 PO 0831 Ceftriaxone Sodium 1,000 MG 1200 09/08 1200 AC 09/08 IV 09/10 1201 1213 Cholecalciferol 1,000 IU DAILY 09/08 0900 AC 09/08 PO 0831 Heparin Sodium 5,000 UNIT Q8 09/07 2200 AC 09/08 (Porcine) SC 0512 Insulin Aspart 0 TIDAC 09/07 1700 AC 09/08 SC 1725 Lactobacillus 1 CAP DAILY 09/08 0900 AC 09/08 Acidophilus PO 0831 Lorazepam 0.5 MG BID 09/07 2100 AC 09/08 PO 09/14 2058 0833 Methimazole 5 MG DAILY 09/08 0900 AC 09/08 PO 0831 Mirtazapine 15 MG QPM 09/07 2100 AC 09/07 PO 2101 Montelukast Sodium 10 MG DAILY 09/08 0900 AC 09/08 PO 0831 Omeprazole 40 MG DAILY AC 09/08 0700 AC 09/08 PO 0505 Pantoprazole Sodium 40 MG DAILY 09/08 1028 DC IV Simethicone 40 MG Q6P PRN 09/07 1545 AC 09/07 PO 2103 Sodium Chloride 1,000 ML Q10H 09/07 1600 DC 09/08 IV 09/08 1159 0505 Last 24 Hrs of Lab/Romie Results Last 24 Hrs of Labs/Mics: Laboratory Tests 09/08/17 0615: Anion Gap 14, Estimated GFR 52 L, BUN/Creatinine Ratio 11.0, Cortisol AM Sample 25.0 H, CBC w Diff NO MAN DIFF REQ, RBC 3.92 L, MCV 75.2 L, MCH 24.8 L, MCHC 33.0, RDW 15.7 H, MPV 6.8 L, Gran % 60.6, Lymphocytes % 33.0, Monocytes % 4.9, Eosinophils % 1.2, Basophils % 0.3, Absolute Granulocytes 7.5 H, Absolute Lymphocytes 4.1 H, Absolute Monocytes 0.6, Absolute Eosinophils 0.2, Absolute Basophils 0 09/07/172157: Anion Gap 12, Estimated GFR 47 L, BUN/Creatinine Ratio 12.7, Lactic Acid 2.1 Microbiology 09/07 1949 STOOL: Clostridium difficile Toxin A & B - COMP 09/07 1948 STOOL: Clostridium difficile Toxin A & B - CAN Cancelled: DUPLICATE Assessment/Plan Assessment: 86 year old patient with past medical history of Alzheimer's dementia, hyperthyroidism w/ multiple thyroid nodules, hypertension, anxiety, diabetes type 2 who was brought to the ER by EMS for 3 days of worsening altered mental status and progressive weakness, including urinary incontinence and loose stool. Problem List/Plan: TRE due to dehydration -Admit to general medicine floor -Vitals and I/O monitoring per protocol -continue to replete with NS as necessary UTI -continue ceftriaxone 1g daily for empiric coveage of UTI (based on UA & leukocytosis) -urine culture positive for gram negative rods; continue abx treatment with rocephin (Suspected) Hypotonic Hyponatremia -correct Na<7meq/24 hours; currently at 130 from admission 123 -Pt has slight anion gap (17) without signs of DKA. Acetone toxicology was negative, suggestive that patient is NOT in DKA. AG corrected to 14 today. -nephrology recs appreciated; patient will not use thiazide diuretics going forward Weakness -pt below baseline functioning -PT consult in the AM; patient refused to participate today, will try again tomorrow PMH of [place] dementia, microcytic anemia, hyperthyroidism, hypertension, anxiety, diabetes type 2 -hold lisinopril/hctz and oral hypoglycemics -continue other home medicines -simethecone PRN for abdominal gas pain, per family (chronic problem, never addressed before) -pain per pathway DVT prophylaxis: Subcu heparin and ALPS Complete carbohydrate 1 Patient is DNR/DNI Problem List: 1. UTI (urinary tract infection) 2. Hyponatremia syndrome 3. Altered mental status Pain Ratin Pain Location: abdomen (gas pain) Pain Goal: pain free Pain Plan: simethicone and acetaminophen Tomorrow's Labs & Rationales: cbc, bep
[2017-09-08 07:47] LABS: ABSOLUTE BASOPHIL COUNT 0 /CUMM (0.0-0.2); ABSOLUTE EOSINOPHIL COUNT 0.2 /CUMM (0.0-0.7); ABSOLUTE GRANULOCYTE CT 7.5 /CUMM (1.4-6.5); ABSOLUTE LYMPH COUNT 4.1 /CUMM (1.2-3.4); ABSOLUTE MONOCYTE COUNT 0.6 /CUMM (0.10-0.60); BASOPHIL % 0.3 % (0.0-2.0); EOSINOPHIL % 1.2 % (0-5); GRANULOCYTE % 60.6 % (42.2-75.2); HEMATOCRIT 29.5 % (37-47); MEAN CORPUSCULAR HGB 24.8 PG (27.0-31.0); MEAN CORPUSCULAR VOLUME 75.2 FL (81.0-99.0); MEAN PLATELET VOLUME 6.8 FL (7.4-10.4); PLATELET COUNT 288 /CUMM (130-400); RBC DISTRIBUTION WIDTH 15.7 % (11.5-14.5); RED BLOOD CELL CT 3.92 /CUMM (4.20-5.40); WHITE BLOOD CELL COUNT 12.4 /CUMM (4.8-10.8)
--- NOTE | 2017-09-08 10:22 | PN- Att Addend ---
Attending Addendum Attending Brief Note Patient complaining of difficulty swallowing and epigastric pain urinating a lot but he also getting IV fluids. Daughters at the bedside. Vital signs are stable no fever. No other major changes on physical examination. White count down to 12,400. Stools for C. difficile are pending urine culture is showing more than 100,000 of gram-negative rods identification are pending and the sodium is up to 130 from 125. 24 TOTALS 09/08 0000 09/07 0000 Intake Total 2200 Output Total Balance 2200 Intake, IV 1800 Intake, Oral 400 Number 6 Bowel Movements Patient 162 lb Weight Weight Reported by Patient Measurement Method Current Medications Sig/Shaquille Start time Last Medication Dose Route Stop Time Status Admin Acetaminophen 650 MG Q6P PRN 09/07 1500 AC PO Aspirin Buffered 81 MG DAILY 09/08 09 AC 09/08 PO 0831 Ceftriaxone Sodium 1,000 MG 1200 09/08 1200 AC IV 09/10 1201 Ceftriaxone Sodium 0 .STK-MED ONE 09/07 1231 DC .ROUTE Ceftriaxone Sodium 1,000 MG ONCE ONE 09/07 1230 DC 09/07 IV 09/07 1231 1232 Cholecalciferol 1,000 IU DAILY 09/08 09 AC 09/08 PO 0831 Heparin Sodium 5,000 UNIT Q8 09/07 2200 AC 09/08 (Porcine) SC 0512 Insulin Aspart 0 TIDAC 09/07 1700 AC 09/08 SC 0831 Lactobacillus 1 CAP DAILY 09/08 09 AC 09/08 Acidophilus PO 0831 Lisinopril 2.5 MG DAILY 09/08 09 CAN PO Lorazepam 0.5 MG BID 09/07 2100 AC 09/08 PO 09/14 2058 0833 Methimazole 5 MG DAILY 09/08 09 AC 09/08 PO 0831 Mirtazapine 15 MG QPM 09/07 2100 AC 09/07 PO 2101 Montelukast Sodium 10 MG DAILY 09/08 09 AC 09/08 PO 0831 Omeprazole 40 MG DAILY AC 09/08 07 AC 09/08 PO 0505 Simethicone 40 MG Q6P PRN 09/07 1545 AC 09/07 PO 2103 Sodium Chloride 1,000 ML Q10H 09/07 1600 AC 09/08 IV 09/08 1159 0505 Sodium Chloride 1,000 ML BOLUS ONE 09/07 1230 DC 07/24 IV 09/07 1329 1232 Laboratory Tests 09/08/17 0615: Anion Gap 14, Estimated GFR 52 L, BUN/Creatinine Ratio 11.0, Cortisol AM Sample 25.0 H, CBC w Diff NO MAN DIFF REQ, RBC 3.92 L, MCV 75.2 L, MCH 24.8 L, MCHC 33.0, RDW 15.7 H, MPV 6.8 L, Gran % 60.6, Lymphocytes % 33.0, Monocytes % 4.9, Eosinophils % 1.2, Basophils % 0.3, Absolute Granulocytes 7.5 H, Absolute Lymphocytes 4.1 H, Absolute Monocytes 0.6, Absolute Eosinophils 0.2, Absolute Basophils 0 09/07/17 2158: Anion Gap 12, Estimated GFR 47 L, BUN/Creatinine Ratio 12.7, Lactic Acid 2.1 09/07/17 1610: Lactic Acid 2.6 H, Acetone Level NEGATIVE 09/07/17 1135: Urine Color YEL, Urine Clarity CLDY H, Urine pH 6.0, Ur Specific [place] 1.025, Urine Protein 100 H, Urine Ketones TRACE H, Urine Nitrite NEG, Urine Bilirubin NEG, Urine Urobilinogen 0.2, Ur Leukocyte Esterase LARGE H, Ur Microscopic SEDIMENT EXAMINED, Urine RBC FEW H, Urine WBC PACKD H, Urine Hemoglobin MOD H , Urine Glucose NEG 09/07/17 1135: Urine Osmolality 227 L, Ur Random Creatinine 87.1, Ur Random Sodium 50, Ur Random Potassium 17.8, Fraction Sodium Excret 0.6 09/07/17 1125: Anion Gap 17 H, Estimated GFR 39 L, BUN/Creatinine Ratio 11.5, Glucose 166 H, Hemoglobin A1c 7.5 H, Serum Osmolality 257 L, Lactic Acid 1.9, Calcium 8.8, Total Bilirubin 0.8, AST 15, ALT 20, Alkaline Phosphatase 125, Troponin I < 0.01 , Total Protein 7.2, Albumin 4.1, Globulin 3.1, Albumin/Globulin Ratio 1.3, TSH 2.050, Free T4 1.80, CBC w Diff MAN DIFF ORDERED, RBC 4.49, MCV 75.1 L, MCH 24.9 L, MCHC 33.1, RDW 15.5 H, MPV 6.7 L, Gran % 67.8, Lymphocytes % 26.5, Monocytes % 5.0, Eosinophils % 0.4, Basophils % 0.3, Absolute Granulocytes 10.4 H, Absolute Lymphocytes 4.1 H, Absolute Monocytes 0.8 H, Absolute Eosinophils 0.1, Absolute Basophils 0.1, Platelet Estimate ADEQUATE, Hypochromic-Microcytic 1+, Anisocytosis 1+ Microbiology Date/Time Procedure - Status Source Growth 09/07 1949 Clostridium difficile Toxin A & B - RECD STOOL 09/07 1948 Clostridium difficile Toxin A & B - COLB STOOL 09/07 1125 Urine Culture - RES URINE ROUT GRAM NEGATIVE RODS Vital Signs Date Time Temp Pulse Resp B/P B/P Pulse O2 O2 Flow FiO2 Mean Ox Delivery Rate 09/08 0618 98.0 93 21 140/78 96 Room Air 09/07 2138 98.1 92 22 124/68 97 Room Air 09/07 1650 97.8 97 20 106/52 97 Room Air 09/07 1600 96 Room Air 09/07 1552 98.0 95 18 153/70 100 Room Air Room Air 09/07 1315 98.1 86 18 139/66 99 Room Air Room Air 09/07 1153 97 Room Air 09/07 1112 98.1 101 18 153/73 97 Room Air We will get a swallowing evaluation and also try a PPI.
--- NOTE | 2017-09-08 10:39 | PN- Student ---
Subjective Subjective: Hospital day 1: 86-year-old female with PMH of [place]heimer dementia, diabetics, hypertension, hyperthyroidism, and GERD presented to ED with 1 week of right leg weakness and difficulty walking; urine and fecal incontinence started 3 days ago. Patient was still confused and not oriented today but better compared to yesterday. Information was obtained from her daughter. She still had urine and fecal incontinence, complained back neck pain, abdominal gas pain and choke on her foods. Patient was very concerned about her stomach pain. Objective Objective: Physical exam: Vital sign: T: 98F // P: 93 // RR: 21 // BP: 140/78 // SpO2: 96% Was not performed. Labs: - Her serum Na was trending up from admission 123 - 125 - 130. - UA: positive leukocytes esterases, trace ketones and proteins. Imaging: - CT of cervical spine: Moderate degenerative disc disease C5-C6 and C7-T1. Enlarged multinodular thyroid gland is seen. - CT of chest: Multiple bilateral 2 to 5 mm solid noncalcified pulmonary nodules. Aortic valvular and mild coronary artery calcifications. Small fat-containing umbilical hernia, Paget's disease of the right hemipelvis - Previous Echo: mild aortic stenosis, trace of mitral regurgitation, trace of aotric regurgitation. Results Results: Laboratory Tests 09/08/17 0615: Anion Gap 14, Estimated GFR 52 L, BUN/Creatinine Ratio 11.0, Cortisol AM Sample 25.0 H, CBC w Diff NO MAN DIFF REQ, RBC 3.92 L, MCV 75.2 L, MCH 24.8 L, MCHC 33.0, RDW 15.7 H, MPV 6.8 L, Gran % 60.6, Lymphocytes % 33.0, Monocytes % 4.9, Eosinophils % 1.2, Basophils % 0.3, Absolute Granulocytes 7.5 H, Absolute Lymphocytes 4.1 H, Absolute Monocytes 0.6, Absolute Eosinophils 0.2, Absolute Basophils 0 09/07/17 2158: Anion Gap 12, Estimated GFR 47 L, BUN/Creatinine Ratio 12.7, Lactic Acid 2.1 09/07/17 1610: Lactic Acid 2.6 H, Acetone Level NEGATIVE 09/07/17 1135: Urine Color YEL, Urine Clarity CLDY H, Urine pH 6.0, Ur Specific [place] 1.025, Urine Protein 100 H, Urine Ketones TRACE H, Urine Nitrite NEG, Urine Bilirubin NEG, Urine Urobilinogen 0.2, Ur Leukocyte Esterase LARGE H, Ur Microscopic SEDIMENT EXAMINED, Urine RBC FEW H, Urine WBC PACKD H, Urine Hemoglobin MOD H , Urine Glucose NEG 09/07/17 1135: Urine Osmolality 227 L, Ur Random Creatinine 87.1, Ur Random Sodium 50, Ur Random Potassium 17.8, Fraction Sodium Excret 0.6 09/07/17 1125: Anion Gap 17 H, Estimated GFR 39 L, BUN/Creatinine Ratio 11.5, Glucose 166 H, Hemoglobin A1c 7.5 H, Serum Osmolality 257 L, Lactic Acid 1.9, Calcium 8.8, Total Bilirubin 0.8, AST 15, ALT 20, Alkaline Phosphatase 125, Troponin I < 0.01 , Total Protein 7.2, Albumin 4.1, Globulin 3.1, Albumin/Globulin Ratio 1.3, TSH 2.050, Free T4 1.80, CBC w Diff MAN DIFF ORDERED, RBC 4.49, MCV 75.1 L, MCH 24.9 L, MCHC 33.1, RDW 15.5 H, MPV 6.7 L, Gran % 67.8, Lymphocytes % 26.5, Monocytes % 5.0, Eosinophils % 0.4, Basophils % 0.3, Absolute Granulocytes 10.4 H, Absolute Lymphocytes 4.1 H, Absolute Monocytes 0.8 H, Absolute Eosinophils 0.1, Absolute Basophils 0.1, Platelet Estimate ADEQUATE, Hypochromic-Microcytic 1+, Anisocytosis 1+ Microbiology 09/07 1949 STOOL: Clostridium difficile Toxin A & B - RECD 09/07 1948 STOOL: Clostridium difficile Toxin A & B - COLB 09/07 1125 URINE ROUT: Urine Culture - RES GRAM NEGATIVE RODS Assessment/Plan Assessment: Summary: 86-year-old female with PMH of [place]heimer dementia, diabetics, hypertension, hyperthyroidism, and GERD presented to ED with 1 week of right leg weakness and difficulty walking, in which 3 days ago the symptoms got progressively worse with bed wetting, drippling of stool on bed and difficulty walking required assistance from 3 people. Labs on admission showed significant leukocytosis 15.3 , hyponatremia 123 trending up to 125 and 130 this morning, positive leukocyte esterase and trace of urine ketones. Imaging showed multinodular thyroid goiter and no other acute findings. Problem list: - Hypotonic hyponatremia. - UTI - Dementia - Hyperthyroidism. - Diabetics. - Hypertension. Plan: - Continue IVF to correct her hyponatremia. - Follow up C.diff toxin. - Order PT/Swallow eval. - Continue Ceftriaxone 1000mg IV. - Continue home meds except on hold furosamides. - DVT prophylaxis with Alps and subcu Heparins. - Patient is DNR/DNI
--- NOTE | 2017-09-08 13:47 | Cons- Nephrology ---
General Information and HPI Consulting Request Date of Consult: 09/08/17 Requested By: Jhon Buckley MD History of Present Illness: Ms. Alvarado is an 86 yo F with a history of HTN , hyperthyroidism, dementia who was brought into the hospital with increasing weakness, poor po intake for the past 3 days and loose stools (incontinece). She was found to be hyponatremic at 125. Her thiazide was stopped and she was given IV NS with improvement in sodium to 130. Allergies/Medications Allergies: Coded Allergies: No Known Allergies (09/07/17) Home Med List: Aspirin (Ecotrin*) 81 MG TABLET.DR 1 TAB PO DAILY HEART HEALTH (Reported) Bacillus Coagulans/Inulin (Probiotic Formula Capsule) 1 BILLION CELL-250 MG CAPSULE 1 CAP PO DAILY GI (Reported) Cholecalciferol (Vitamin D3) 1,000 UNIT TABLET 1 TAB PO DAILY VITAMIN SUPPORT (Reported) Lisinopril 2.5 MG TABLET 1 TAB PO DAILY HEART (Reported) Lorazepam (Ativan) 0.5 MG TABLET 1 TAB PO BID ANXIETY (Reported) Methimazole 5 MG TABLET 1 TAB PO DAILY THYROID (Reported) Mirtazapine 15 MG TABLET 1 TAB PO QPM SLEEP (Reported) Montelukast Sodium (Singulair) 10 MG TABLET 1 TAB PO DAILY ALLERGIES ( Reported) Pantoprazole Sodium (Protonix) 40 MG TABLET.DR 1 TAB PO DAILY GI (Reported) Sitagliptin Phos/Metformin HCl (Janumet 50-500 MG Tablet) 50 MG-500 MG TABLET 2 TAB PO DAILY DIABETES (Reported) Sitagliptin Phos/Metformin HCl (Janumet 50-1,000 MG Tablet) 50 MG-1,000 MG TABLET 1 TAB PO QPM DIABETES (Reported) Triamterene/Hydrochlorothiazid (Triamterene-Hctz 37.5-25 MG Cp) 37.5 MG-25 MG CAPSULE 1 CAP PO DAILY HEART (Reported) Review of Systems Review of Systems: Limited due to dementia. Given by family at bedside. As in HPI otherwise negative. 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 Home Who Do You Live With? spouse Services at Home: None Primary Language: Macedonian Smoking Status: Unknown If Ever Smoked ETOH Use: 6 Living Will? yes Power of Certified Paralegal/HCP? 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 Ambulation: walker (currently nonambulatory) IADLs Needs Assist: shopping, housework, finances, food prep, telephone, transportation, medication admin. Exam & Diagnostic Data Vital Signs and I&O Elderly F NAD 140/78 93 98 Skin neg rash Eyes anicteric ENT moist Lungs clear to A Cor RRR Abd soft N/T Ext neg edema Results Pertinent Lab Results: Laboratory Tests 09/08 09/07 09/07 0615 2158 1610 Chemistry Sodium (137 - 145 mmol/L) 130 L 125 L Potassium (3.5 - 5.1 mmol/L) 3.5 3.5 Chloride (98 - 107 mmol/L) 90 L 87 L Carbon Dioxide (22 - 30 mmol/L) 25 26 Anion Gap (5 - 16) 14 12 BUN (7 - 17 mg/dL) 11 14 Creatinine (0.5 - 1.0 mg/dL) 1.0 1.1 H Estimated GFR (>60 ml/min) 52 L 47 L BUN/Creatinine Ratio (7 - 25 %) 11.0 12.7 Lactic Acid (0.7 - 2.1 mmol/L) 2.1 2.6 H Cortisol AM Sample (4.46 - 22.7 ug/dL) 25.0 H Hematology CBC w Diff NO MAN DIFF REQ WBC (4.8 - 10.8 /CUMM) 12.4 H RBC (4.20 - 5.40 /CUMM) 3.92 L Hgb (12.0 - 16.0 G/DL) 9.7 L Hct (37 - 47 %) 29.5 L MCV (81.0 - 99.0 FL) 75.2 L MCH (27.0 - 31.0 PG) 24.8 L MCHC (33.0 - 37.0 G/DL) 33.0 RDW (11.5 - 14.5 %) 15.7 H Plt Count (130 - 400 /CUMM) 288 MPV (7.4 - 10.4 FL) 6.8 L Gran % (42.2 - 75.2 %) 60.6 Lymphocytes % (20.5 - 51.1 %) 33.0 Monocytes % (1.7 - 9.3 %) 4.9 Eosinophils % (0 - 5 %) 1.2 Basophils % (0.0 - 2.0 %) 0.3 Absolute Granulocytes (1.4 - 6.5 /CUMM) 7.5 H Absolute Lymphocytes (1.2 - 3.4 /CUMM) 4.1 H Absolute Monocytes (0.10 - 0.60 /CUMM) 0.6 Absolute Eosinophils (0.0 - 0.7 /CUMM) 0.2 Absolute Basophils (0.0 - 0.2 /CUMM) 0 Toxicology Acetone Level (NEGATIVE) NEGATIVE 09/07 09/07 1135 1135 Urines Urine Color (YEL,AMB,STR) YEL Urine Clarity (CLEAR) CLDY H Urine pH (5.0 - 8.0) 6.0 Ur Specific [place] (1.001 - 1.035) 1.025 Urine Protein (NEG,<30 MG/DL) 100 H Urine Ketones (NEG) TRACE H Urine Nitrite (NEG) NEG Urine Bilirubin (NEG) NEG Urine Urobilinogen (0.1 - 1.0 EU/dl) 0.2 Ur Leukocyte Esterase (NEG) LARGE H Ur Microscopic SEDIMENT EXAMINED Urine RBC (0 - 5 /HPF) FEW H Urine WBC (0 - 2 /HPF) PACKD H Urine Hemoglobin (NEG) MOD H Urine Osmolality (300 - 1000 MOSM/KG) 227 L Ur Random Creatinine (mg/dL) 87.1 Ur Random Sodium (30 - 90 mmol/L) 50 Ur Random Potassium (mmol/L) 17.8 Fraction Sodium Excret (<1% %) 0.6 Urine Glucose (N MG/DL) NEG 09/07 1125 Chemistry Sodium (137 - 145 mmol/L) 123 L Potassium (3.5 - 5.1 mmol/L) 3.9 Chloride (98 - 107 mmol/L) 79 L Carbon Dioxide (22 - 30 mmol/L) 27 Anion Gap (5 - 16) 17 H BUN (7 - 17 mg/dL) 15 Creatinine (0.5 - 1.0 mg/dL) 1.3 H Estimated GFR (>60 ml/min) 39 L BUN/Creatinine Ratio (7 - 25 %) 11.5 Glucose (65 - 99 mg/dL) 166 H Hemoglobin A1c (4.2 - 5.8 %) 7.5 H Serum Osmolality (285 - 295 MOSM/KG) 257 L Lactic Acid (0.7 - 2.1 mmol/L) 1.9 Calcium (8.4 - 10.2 mg/dL) 8.8 Total Bilirubin (0.2 - 1.3 mg/dL) 0.8 AST (14 - 36 U/L) 15 ALT (9 - 52 U/L) 20 Alkaline Phosphatase (<127 U/L) 125 Troponin I (< 0.11 ng/ml) < 0.01 Total Protein (6.3 - 8.2 g/dL) 7.2 Albumin (3.5 - 5.0 g/dL) 4.1 Globulin (1.9 - 4.2 gm/dL) 3.1 Albumin/Globulin Ratio (1.1 - 2.2 %) 1.3 TSH (0.270 - 4.200 uIU/mL) 2.050 Free T4 (0.85 - 1.93 ng/dL) 1.80 Hematology CBC w Diff MAN DIFF ORDERED WBC (4.8 - 10.8 /CUMM) 15.3 H RBC (4.20 - 5.40 /CUMM) 4.49 Hgb (12.0 - 16.0 G/DL) 11.2 L Hct (37 - 47 %) 33.7 L MCV (81.0 - 99.0 FL) 75.1 L MCH (27.0 - 31.0 PG) 24.9 L MCHC (33.0 - 37.0 G/DL) 33.1 RDW (11.5 - 14.5 %) 15.5 H Plt Count (130 - 400 /CUMM) 390 MPV (7.4 - 10.4 FL) 6.7 L Gran % (42.2 - 75.2 %) 67.8 Lymphocytes % (20.5 - 51.1 %) 26.5 Monocytes % (1.7 - 9.3 %) 5.0 Eosinophils % (0 - 5 %) 0.4 Basophils % (0.0 - 2.0 %) 0.3 Absolute Granulocytes (1.4 - 6.5 /CUMM) 10.4 H Absolute Lymphocytes (1.2 - 3.4 /CUMM) 4.1 H Absolute Monocytes (0.10 - 0.60 /CUMM) 0.8 H Absolute Eosinophils (0.0 - 0.7 /CUMM) 0.1 Absolute Basophils (0.0 - 0.2 /CUMM) 0.1 Platelet Estimate (ADEQUATE) ADEQUATE Hypochromic-Microcytic 1+ Anisocytosis 1+ Assessment/Plan Assessment/Recommendations Assessment: Hyponatremia most likely due to thiazide diuretic (she was Diazide). This is much more frequent in the elderly and probably exacerbated by decreased po intake over the past 3 days. Would avoid thiazide diuretics in this woman going forward. The urine lytes/Osm is consistent with thiazide induced hyponatremia. It should correct with NS. If Na fall recheck U Osm/U Na to reassess role of ADH. Carrillo Haro MD Recommendations: .
[2017-09-08 14:39] VITALS: BP 130/80
--- NOTE | 2017-09-08 15:30 | Discharge Summary ---
Visit Information Visit Dates Admission Date: 09/07/17 Discharge Date: 09/13/2017 Hospital Course Course Attending Physician: Jhon Buckley MD Primary Care Physician: Ina NULL,Jhon Hospital Course: Ms. Alvarado is a 86yo F w/ PMH of baseline [place] dementia, hyperthyrodism w/ multiple thyroid nodules, HTN, Anxiety, T2DM, presented to ER brought by family cc of worsening AMS x 3 days, along w/ weakness to ambulate with walker, urinary incontinence, and possible loose stool (dripping). During clinical interaction, patient was only AO to self, family members, location, but not to time and president. Most history was obtained from family members at bedside. -Baselines: ambulates freely w/ walker, with independent ADLs During our clinical interaction, patient denied recent travel/sick contacts, fever/lightheadedness/diaphoresis/night sweat/weight change/cough/SOB/Chest Pain /Palpitation/Abdominal pain/bowel movement or urinary abnormality, or other skin /musculoskeletal/neurological/mood disorders, or dietary/appetite change. -Smoking: denied -Alcohol: denied -Rec Drugs: denied On admission, Vitals: Stable afebrile, tachycardia 101, BP 153/73, 97% on room air Physical exam -Gen.: AO x self/setting/family, not to time/president, cooperative, no distress , -HEENT: NCAT, PERRL, EOMI, anicteric sclera, moist mucous membranes -Neck: Supple, no JVD, trachea midline, mild accessory respiratory muscle use -Cardio: Normal S1/S2 some systolic murmurs/gallops/rubs -Pulmonary: grossly normal air movement w/ clear auscultation -Abdomen: Soft, gasy tender on palpation, however benign. -Neuro: Awake and alert, cranial nerves II through XII grossly intact -Extremity: Normal pulses/capillary refill, no cyanosis/clubbing/edema -CBC: Leukocytosis 15.3, H/H 11.2/33.7, PLT 390, no granulocytosis/bandemia -BMP: Hyponatremia 123, K 3.8, Cl 79, Cr 1.3 (baseline 1.0), Glucose 166, HbA1c 7.5 (9.1), Serum OSM 257, -UA/Microbiology: LE/WBC +ve, urine OSM 227, Na 50, FeNa 0.6 -Head/Cervical/Chest/Ab Pelvis CT: No acute issues. -EKG: Tachycardia w/o significant ST-T abnormalities. -Last Echo: 11/2012 Abnormal relaxation filling pattern of the left ventricle for age (stage 1 diastolic dysfunction). Normal right ventricular size and function. -Interventions in ER: Ceftriaxone x 1, NS Bolus x 1 Based on patient's history of poor oral intake, questionable diarrhea, and lab w / decreased FeNa <1, patient's more likely aligh w/ hypovolemic hyponatremia, however SIADH/Hypoaldosterism would still be of differential Dx. She would need volume repletion and recheck BEP to monitor Na. Problem list/Assessment/Hospital Course: #TRE 2/2 dehydration #uncomplicated UTI w/ leukocytosis #Hypotonic Hyponatremia 2/2 hypovolemia/Diuretic use #PMH of baseline [place] dementia, microcytic anemia, hyperthyrodism w/ multiple thyroid nodules, HTN, Anxiety, T2DM On admission, patient was discontinued on home meds of diurectics including Diazide and Lisinopril, and monitored on BEP frequently with correction <7MEQ/ 24hrs. Patient's Na gradually improved. Nephrology recommended to avoid thiazides. Also urine culture showed [place]-sensitive E.Coli. Patient had spiked fever once on 09/11 with repeated urine culture negative. [place] [address] and have been afebrile x >24hrs. Patient was switched from Ceftriaxone to PO bactrim to complete a 10-day course of ABx. DVT PPX Heparin + ALPS DNR/DNI Heart Healthy Diet Allergies: Coded Allergies: No Known Allergies (09/07/17) Pertinent Lab Results: SERVICE DATE: 09/07/17 EXAM TYPE: CAT - CT ABD & PELVIS W/O IV CONTRAS; CT CHEST WO IV CONTRAST IMPRESSION: 1. No acute process in the chest, abdomen or pelvis. 2. Multiple bilateral 2 to 5 mm solid noncalcified pulmonary nodules as seen, some of which were also demonstrated on the previous CT scan from 11/30/2012 and remaining similar in size. Some of the smaller nodules were not previously seen on thicker section images. Given patient's apparent underlying obstructive lung disease, follow-up optional CT scan in 12 months should be considered. 3. Enlarged multinodular thyroid gland with substernal extension of the left lobe. The patient is known to have a multinodular thyroid goiter, last imaged with ultrasound in 2012. Follow-up thyroid ultrasound is recommended for reassessment. 4. Aortic valvular and mild coronary artery calcifications. 5. Small fat-containing umbilical hernia. 6. Paget's disease of the right hemipelvis. SERVICE DATE: 09/07/17 EXAM TYPE: CAT - CT CERV SPINE WO IV CONTRAST; CT HEAD WO IV CONTRAST IMPRESSION: CT scan of the head: No acute intracranial pathology. Mild involutional changes and changes of chronic ischemic small vessel disease are noted, similar to prior exam. CT scan of the cervical spine: No evidence of cervical spine fracture or malalignment. Moderate degenerative disc disease C5-C6 and C7-T1. Enlarged multinodular thyroid gland is seen. Previous ultrasound from 12/15/2012 had demonstrated a multinodular thyroid gland. Recommend follow-up ultrasound to document stability of findings. Disposition Summary Disposition Principal Diagnosis: #TRE 2/2 dehydration #uncomplicated UTI w/ leukocytosis #Hypotonic Hyponatremia 2/2 hypovolemia/Diuretic use #PMH of baseline [place] dementia, microcytic anemia, hyperthyrodism w/ multiple thyroid nodules, HTN, Anxiety, T2DM Additional Diagnosis: As above Discharge Disposition: SNF Discharge Instructions General Discharge Information Code Status: Do Not Resucitate/Intubat Patient's Diet: Heart Healthy Patient's Activity: as tolerated Follow-Up Instructions/Appts: - Please stop taking the Diazide until being seen by your PCP. - Please follow up with your primary care physician within 1-2 weeks of discharge. Inform your primary care physician of this admission to [facility]. - Continue your current medications per discharge instructions. - Please watch for these problems: Fever, Chills, Nausea, Vomiting, Shortness of Breath, Productive Cough, Chest Pain/Discomfort, Abdominal Pain, Active Bleeding or Bloody urine/stool. Medications at Discharge Discharge Medications: Stop taking the following medications: Triamterene/Hydrochlorothiazid (Triamterene-Hctz 37.5-25 MG Cp) 37.5 MG-25 MG CAPSULE ORAL DAILY Continue taking these medications: Aspirin (Ecotrin*) 81 MG TABLET.DR 1 Tablet ORAL DAILY Pantoprazole Sodium (Protonix) 40 MG TABLET.DR 1 Tablet ORAL DAILY Methimazole (Methimazole) 5 MG TABLET 1 Tablet ORAL DAILY Mirtazapine (Mirtazapine) 15 MG TABLET 1 Tablet ORAL Every night Lisinopril (Lisinopril) 2.5 MG TABLET 1 Tablet ORAL DAILY Montelukast Sodium (Singulair) 10 MG TABLET 1 Tablet ORAL DAILY Lorazepam (Ativan) 0.5 MG TABLET 1 Tablet ORAL TWICE DAILY Bacillus Coagulans/Inulin (Probiotic Formula Capsule) 1 BILLION CELL-250 MG CAPSULE 1 Capsule ORAL DAILY Cholecalciferol (Vitamin D3) 1,000 UNIT TABLET 1 Tablet ORAL DAILY Sitagliptin Phos/Metformin HCl (Janumet 50-500 MG Tablet) 50 MG-500 MG TABLET 2 Tablet ORAL DAILY Qty = 180 Sitagliptin Phos/Metformin HCl (Janumet 50-1,000 MG Tablet) 50 MG-1,000 MG TABLET 1 Tablet ORAL Every night Start taking the following new medications: Sulfamethoxazole/Trimethoprim (Sulfamethoxazole-Tmp Ds Tablet) 800 MG-160 MG TABLET 1 Tablet ORAL TWICE DAILY Qty = 8 No Refills Copies To: Jhon Buckley MD
[2017-09-08 21:18] VITALS: BP 142/80
[2017-09-09 06:32] VITALS: BP 140/80
--- NOTE | 2017-09-09 07:10 | PN- Housestaff ---
Subjective Follow-up For: worsening mental status Complaints: no complaints Subjective: She seen and examined at bedside. Daughters at the bed. Patient improved since yesterday, no acute events overnight. Per nursing, patient has had decreased urinary incontinence. Family is happy with the plan, no complaints. Review of Systems Constitutional: Reports: no symptoms. EENTM: Reports: no symptoms. Cardiovascular: Reports: no symptoms. Respiratory: Reports: no symptoms. Gastrointestinal: Reports: no symptoms. Genitourinary: Reports: no symptoms. Musculoskeletal: Reports: no symptoms. Skin: Reports: no symptoms. Neurological/Psychological: Reports: confusion, dementia, weakness. Hematologic/Endocrine: Reports: no symptoms. Immunologic/Allergic: Reports: no symptoms. Objective Last 24 Hrs of Vital Signs/I&O Vital Signs Date Time Temp Pulse Resp B/P B/P Pulse O2 O2 Flow FiO2 Mean Ox Delivery Rate 09/09 0800 94 Room Air 09/09 0632 98.4 96 19 140/80 94 Room Air 09/08 2118 98.1 104 18 142/80 96 Room Air 09/08 1439 98.0 97 18 130/80 98 Room Air Intake & Output 09/09 1600 09/09 0800 09/09 0000 Intake Total 120 485 Output Total Balance 120 485 Intake, IV 385 Intake, Oral 120 100 Number 1 Bowel Movements Patient 162 lb Weight Physical Exam General Appearance: Alert, Oriented X3, Cooperative, No Acute Distress Skin: No Rashes, No Breakdown, No Significant Lesion Skin Temp/Moisture Exam: Warm/Dry HEENT: Atraumatic, PERRLA, EOMI Neck: Supple, No JVD, No thryomegaly Lymphatic: Axillary nl, Cervical nl Cardiovascular: Regular Rate, Normal S1, Normal S2, No Murmurs, Gallops, Rubs Lungs: Clear to Auscultation, Normal Air Movement Abdomen: Normal Bowel Sounds, Soft, No Tenderness, No Hepatospenomegaly, No Masses Neurological: Normal Speech, Strength at 5/5 X4 Ext, Normal Tone Extremities: No Clubbing, No Cyanosis, No Edema, Normal Pulses, No Tenderness/ Swelling Vascular: Normal Pulses, Pulses Symmetrical Current Medications: Current Medications Sig/[place] Start time Last Medication Dose Route Stop Time Status Admin Acetaminophen 650 MG Q6P PRN 09/07 1500 AC PO Artificial Tears 2 GTT TID 09/08 1547 AC 09/09 OPH 0936 Aspirin Buffered 81 MG DAILY 09/08 09 AC 09/09 PO 0936 Ceftriaxone Sodium 1,000 MG 1200 09/08 1200 DC 09/09 IV 09/10 1201 1233 Cephalexin 500 MG Q12 09/09 2100 AC PO Cholecalciferol 1,000 IU DAILY 09/08 09 AC 09/09 PO 0936 Heparin Sodium 5,000 UNIT Q8 09/07 2200 AC 09/09 (Porcine) SC 0556 Insulin Aspart 0 TIDAC 09/07 1700 AC 09/09 SC 1234 Lactobacillus 1 CAP DAILY 09/08 09 AC 09/09 Acidophilus PO 0936 Lorazepam 0.5 MG BID 09/07 2100 AC 09/09 PO 09/14 Methimazole 5 MG DAILY 09/08 09 AC 09/09 PO 0936 Mirtazapine 15 MG QPM 09/07 2100 AC 09/08 PO 205 Montelukast Sodium 10 MG DAILY 09/08 09 AC 09/09 PO 0937 Omeprazole 40 MG DAILY AC 09/08 07 AC 09/09 PO 0556 Simethicone 40 MG Q6P PRN 09/07 1545 AC 09/07 PO 210 Last 24 Hrs of Lab/Romie Results Last 24 Hrs of Labs/Mics: Laboratory Tests 09/09/17 0609: Anion Gap 12, Estimated GFR 59 L, BUN/Creatinine Ratio 7.8, CBC w Diff NO MAN DIFF REQ, RBC 4.24, MCV 76.1 L, MCH 24.1 L, MCHC 31.7 L, RDW 15.6 H, MPV 6.8 L, Gran % 58.3, Lymphocytes % 35.5, Monocytes % 4.2, Eosinophils % 1.5, Basophils % 0.5, Absolute Granulocytes 7.1 H, Absolute Lymphocytes 4.3 H, Absolute Monocytes 0.5, Absolute Eosinophils 0.2, Absolute Basophils 0.1 Assessment/Plan Assessment: Assessment: 86 year old patient with past medical history of Alzheimer's dementia, hyperthyroidism w/ multiple thyroid nodules, hypertension, anxiety, diabetes type 2 who was brought to the ER by EMS for 3 days of worsening altered mental status and progressive weakness, including urinary incontinence and loose stool. Problem List/Plan: TRE due to dehydration -Admit to general medicine floor -Vitals and I/O monitoring per protocol -stopped NS infusions UTI -continue ceftriaxone 1g daily for empiric coveage of UTI (based on UA & leukocytosis) -urine culture positive for gram negative rods; continue abx treatment with rocephin (Suspected) Hypotonic Hyponatremia -correct Na<7meq/24 hours; currently at 132 from admission 123 -Anion gap corrected -nephrology recs appreciated; patient will not use thiazide diuretics going forward Weakness -pt below baseline functioning -PT consult in the AM; patient refused to participate yesterday, will try again PMH of [place] dementia, microcytic anemia, hyperthyroidism, hypertension, anxiety, diabetes type 2 -hold lisinopril/hctz and oral hypoglycemics -continue other home medicines -simethecone PRN for abdominal gas pain, per family (chronic problem, never addressed before) -pain per pathway DVT prophylaxis: Subcu heparin and ALPS Complete carbohydrate 1 Patient is DNR/DNI Problem List: 1. UTI (urinary tract infection) 2. Hyponatremia syndrome 3. Altered mental status Pain Ratin Pain Location: none Pain Goal: Remain pain free Pain Plan: tylenol as needed, simethicone Tomorrow's Labs & Rationales: cbc, bep
[2017-09-09 08:12] LABS: ABSOLUTE BASOPHIL COUNT 0.1 /CUMM (0.0-0.2); ABSOLUTE EOSINOPHIL COUNT 0.2 /CUMM (0.0-0.7); ABSOLUTE GRANULOCYTE CT 7.1 /CUMM (1.4-6.5); ABSOLUTE LYMPH COUNT 4.3 /CUMM (1.2-3.4); ABSOLUTE MONOCYTE COUNT 0.5 /CUMM (0.10-0.60); BASOPHIL % 0.5 % (0.0-2.0); EOSINOPHIL % 1.5 % (0-5); GRANULOCYTE % 58.3 % (42.2-75.2); HEMATOCRIT 32.2 % (37-47); MEAN CORPUSCULAR HGB 24.1 PG (27.0-31.0); MEAN CORPUSCULAR HGB CONC 31.7 G/DL (33.0-37.0); MEAN CORPUSCULAR VOLUME 76.1 FL (81.0-99.0); MEAN PLATELET VOLUME 6.8 FL (7.4-10.4); PLATELET COUNT 297 /CUMM (130-400); RBC DISTRIBUTION WIDTH 15.6 % (11.5-14.5); RED BLOOD CELL CT 4.24 /CUMM (4.20-5.40); WHITE BLOOD CELL COUNT 12.2 /CUMM (4.8-10.8)
--- NOTE | 2017-09-09 11:18 | PN- Nephrology ---
Assessment/Plan Nephrology Assessment: Hyponatremia most likely diuretic induced. getting better. Avoid thiazide diuretics. Carrillo Haro MD Suggestion: . Subjective Subjective: Patient comfortable eating breakfast this morning. Na up to 132. Objective Vital Signs and I&Os F NAD Lungs clear COr RRR Abd soft N/T Ext neg edema Results Pertinent Lab Results: Laboratory Tests 09/09 09/08 0609 0615 Chemistry Sodium (137 - 145 mmol/L) 132 L 130 L Potassium (3.5 - 5.1 mmol/L) 3.8 3.5 Chloride (98 - 107 mmol/L) 92 L 90 L Carbon Dioxide (22 - 30 mmol/L) 29 25 Anion Gap (5 - 16) 12 14 BUN (7 - 17 mg/dL) 7 11 Creatinine (0.5 - 1.0 mg/dL) 0.9 1.0 Estimated GFR (>60 ml/min) 59 L 52 L BUN/Creatinine Ratio (7 - 25 %) 7.8 11.0 Cortisol AM Sample (4.46 - 22.7 ug/dL) 25.0 H Hematology CBC w Diff NO MAN DIFF REQ NO MAN DIFF REQ WBC (4.8 - 10.8 /CUMM) 12.2 H 12.4 H RBC (4.20 - 5.40 /CUMM) 4.24 3.92 L Hgb (12.0 - 16.0 G/DL) 10.2 L 9.7 L Hct (37 - 47 %) 32.2 L 29.5 L MCV (81.0 - 99.0 FL) 76.1 L 75.2 L MCH (27.0 - 31.0 PG) 24.1 L 24.8 L MCHC (33.0 - 37.0 G/DL) 31.7 L 33.0 RDW (11.5 - 14.5 %) 15.6 H 15.7 H Plt Count (130 - 400 /CUMM) 297 288 MPV (7.4 - 10.4 FL) 6.8 L 6.8 L Gran % (42.2 - 75.2 %) 58.3 60.6 Lymphocytes % (20.5 - 51.1 %) 35.5 33.0 Monocytes % (1.7 - 9.3 %) 4.2 4.9 Eosinophils % (0 - 5 %) 1.5 1.2 Basophils % (0.0 - 2.0 %) 0.5 0.3 Absolute Granulocytes (1.4 - 6.5 /CUMM) 7.1 H 7.5 H Absolute Lymphocytes (1.2 - 3.4 /CUMM) 4.3 H 4.1 H Absolute Monocytes (0.10 - 0.60 /CUMM) 0.5 0.6 Absolute Eosinophils (0.0 - 0.7 /CUMM) 0.2 0.2 Absolute Basophils (0.0 - 0.2 /CUMM) 0.1 0 09/07 09/07 09/07 2158 1610 1135 Chemistry Sodium (137 - 145 mmol/L) 125 L Potassium (3.5 - 5.1 mmol/L) 3.5 Chloride (98 - 107 mmol/L) 87 L Carbon Dioxide (22 - 30 mmol/L) 26 Anion Gap (5 - 16) 12 BUN (7 - 17 mg/dL) 14 Creatinine (0.5 - 1.0 mg/dL) 1.1 H Estimated GFR (>60 ml/min) 47 L BUN/Creatinine Ratio (7 - 25 %) 12.7 Lactic Acid (0.7 - 2.1 mmol/L) 2.1 2.6 H Toxicology Acetone Level (NEGATIVE) NEGATIVE Urines Urine Color (YEL,AMB,STR) YEL Urine Clarity (CLEAR) CLDY H Urine pH (5.0 - 8.0) 6.0 Ur Specific [place] (1.001 - 1.035) 1.025 Urine Protein (NEG,<30 MG/DL) 100 H Urine Ketones (NEG) TRACE H Urine Nitrite (NEG) NEG Urine Bilirubin (NEG) NEG Urine Urobilinogen (0.1 - 1.0 EU/dl) 0.2 Ur Leukocyte Esterase (NEG) LARGE H Ur Microscopic SEDIMENT EXAMINED Urine RBC (0 - 5 /HPF) FEW H Urine WBC (0 - 2 /HPF) PACKD H Urine Hemoglobin (NEG) MOD H Urine Glucose (N MG/DL) NEG 09/07 09/07 1135 1125 Chemistry Sodium (137 - 145 mmol/L) 123 L Potassium (3.5 - 5.1 mmol/L) 3.9 Chloride (98 - 107 mmol/L) 79 L Carbon Dioxide (22 - 30 mmol/L) 27 Anion Gap (5 - 16) 17 H BUN (7 - 17 mg/dL) 15 Creatinine (0.5 - 1.0 mg/dL) 1.3 H Estimated GFR (>60 ml/min) 39 L BUN/Creatinine Ratio (7 - 25 %) 11.5 Glucose (65 - 99 mg/dL) 166 H Hemoglobin A1c (4.2 - 5.8 %) 7.5 H Serum Osmolality (285 - 295 MOSM/KG) 257 L Lactic Acid (0.7 - 2.1 mmol/L) 1.9 Calcium (8.4 - 10.2 mg/dL) 8.8 Total Bilirubin (0.2 - 1.3 mg/dL) 0.8 AST (14 - 36 U/L) 15 ALT (9 - 52 U/L) 20 Alkaline Phosphatase (<127 U/L) 125 Troponin I (< 0.11 ng/ml) < 0.01 Total Protein (6.3 - 8.2 g/dL) 7.2 Albumin (3.5 - 5.0 g/dL) 4.1 Globulin (1.9 - 4.2 gm/dL) 3.1 Albumin/Globulin Ratio (1.1 - 2.2 %) 1.3 TSH (0.270 - 4.200 uIU/mL) 2.050 Free T4 (0.85 - 1.93 ng/dL) 1.80 Hematology CBC w Diff MAN DIFF ORDERED WBC (4.8 - 10.8 /CUMM) 15.3 H RBC (4.20 - 5.40 /CUMM) 4.49 Hgb (12.0 - 16.0 G/DL) 11.2 L Hct (37 - 47 %) 33.7 L MCV (81.0 - 99.0 FL) 75.1 L MCH (27.0 - 31.0 PG) 24.9 L MCHC (33.0 - 37.0 G/DL) 33.1 RDW (11.5 - 14.5 %) 15.5 H Plt Count (130 - 400 /CUMM) 390 MPV (7.4 - 10.4 FL) 6.7 L Gran % (42.2 - 75.2 %) 67.8 Lymphocytes % (20.5 - 51.1 %) 26.5 Monocytes % (1.7 - 9.3 %) 5.0 Eosinophils % (0 - 5 %) 0.4 Basophils % (0.0 - 2.0 %) 0.3 Absolute Granulocytes (1.4 - 6.5 /CUMM) 10.4 H Absolute Lymphocytes (1.2 - 3.4 /CUMM) 4.1 H Absolute Monocytes (0.10 - 0.60 /CUMM) 0.8 H Absolute Eosinophils (0.0 - 0.7 /CUMM) 0.1 Absolute Basophils (0.0 - 0.2 /CUMM) 0.1 Platelet Estimate (ADEQUATE) ADEQUATE Hypochromic-Microcytic 1+ Anisocytosis 1+ Urines Urine Osmolality (300 - 1000 MOSM/KG) 227 L Ur Random Creatinine (mg/dL) 87.1 Ur Random Sodium (30 - 90 mmol/L) 50 Ur Random Potassium (mmol/L) 17.8 Fraction Sodium Excret (<1% %) 0.6
--- NOTE | 2017-09-09 12:42 | PN- Att Addend ---
Attending Addendum Attending Brief Note Patient sitting in the chair. 2 daughters the bedside patient looking better active basilar she doesn't complain of the abdominal pain. Vital signs stable no fever This 12,200 today. Sodium is up to 132. Stools are negative for C. difficile. Urine culture showed more than 100,000 colonies of Escherichia coli sensitive to all antibiotics tested. We'll continue present treatment and reevaluate in the morning Intake & Output 09/09 1600 09/09 0400 09/08 1600 09/08 0400 09/07 1600 09/07 0400 Intake Total 046 898 7250 1200 1000 Output Total Balance 060 048 9466 1200 1000 Intake, IV 385 8691 355 3276 Intake, Oral 120 100 420 400 Number 1 1 6 Bowel Movements Patient 162 lb Weight Weight Reported by Patient Measurement Method Current Medications Sig/Shaquille Start time Last Medication Dose Route Stop Time Status Admin Acetaminophen 650 MG Q6P PRN 09/07 1500 AC PO Artificial Tears 2 GTT TID 09/08 1547 AC 09/09 OPH 0936 Aspirin Buffered 81 MG DAILY 09/08 09 AC 09/09 PO 0936 Ceftriaxone Sodium 1,000 MG 1200 09/08 1200 AC 09/09 IV 09/10 1201 1233 Cholecalciferol 1,000 IU DAILY 09/08 09 AC 09/09 PO 0936 Heparin Sodium 5,000 UNIT Q8 09/07 2200 AC 09/09 (Porcine) SC 0556 Insulin Aspart 0 TIDAC 09/07 1700 AC 09/09 SC 1234 Lactobacillus 1 CAP DAILY 09/08 899 AC 09/09 Acidophilus PO 0936 Lorazepam 0.5 MG BID 09/07 2100 AC 09/09 PO 09/1436 Methimazole 5 MG DAILY 09/08 09 AC 09/09 PO 0936 Mirtazapine 15 MG QPM 09/07 2100 AC 09/08 PO 2053 Montelukast Sodium 10 MG DAILY 09/08 09 AC 09/09 PO 0937 Omeprazole 40 MG DAILY AC 09/08 07 AC 09/09 PO 0556 Simethicone 40 MG Q6P PRN 09/07 1545 AC 09/07 PO 2103 Laboratory Tests 09/09/17 0609: Anion Gap 12, Estimated GFR 59 L, BUN/Creatinine Ratio 7.8, CBC w Diff NO MAN DIFF REQ, RBC 4.24, MCV 76.1 L, MCH 24.1 L, MCHC 31.7 L, RDW 15.6 H, MPV 6.8 L, Gran % 58.3, Lymphocytes % 35.5, Monocytes % 4.2, Eosinophils % 1.5, Basophils % 0.5, Absolute Granulocytes 7.1 H, Absolute Lymphocytes 4.3 H, Absolute Monocytes 0.5, Absolute Eosinophils 0.2, Absolute Basophils 0.1 09/08/17 0615: Anion Gap 14, Estimated GFR 52 L, BUN/Creatinine Ratio 11.0, Cortisol AM Sample 25.0 H, CBC w Diff NO MAN DIFF REQ, RBC 3.92 L, MCV 75.2 L, MCH 24.8 L, MCHC 33.0, RDW 15.7 H, MPV 6.8 L, Gran % 60.6, Lymphocytes % 33.0, Monocytes % 4.9, Eosinophils % 1.2, Basophils % 0.3, Absolute Granulocytes 7.5 H, Absolute Lymphocytes 4.1 H, Absolute Monocytes 0.6, Absolute Eosinophils 0.2, Absolute Basophils 0 09/07/17 2158: Anion Gap 12, Estimated GFR 47 L, BUN/Creatinine Ratio 12.7, Lactic Acid 2.1 09/07/17 1610: Lactic Acid 2.6 H, Acetone Level NEGATIVE 09/07/17 1135: Urine Color YEL, Urine Clarity CLDY H, Urine pH 6.0, Ur Specific [place] 1.025, Urine Protein 100 H, Urine Ketones TRACE H, Urine Nitrite NEG, Urine Bilirubin NEG, Urine Urobilinogen 0.2, Ur Leukocyte Esterase LARGE H, Ur Microscopic SEDIMENT EXAMINED, Urine RBC FEW H, Urine WBC PACKD H, Urine Hemoglobin MOD H , Urine Glucose NEG 09/07/17 1135: Urine Osmolality 227 L, Ur Random Creatinine 87.1, Ur Random Sodium 50, Ur Random Potassium 17.8, Fraction Sodium Excret 0.6 09/07/17 1125: Anion Gap 17 H, Estimated GFR 39 L, BUN/Creatinine Ratio 11.5, Glucose 166 H, Hemoglobin A1c 7.5 H, Serum Osmolality 257 L, Lactic Acid 1.9, Calcium 8.8, Total Bilirubin 0.8, AST 15, ALT 20, Alkaline Phosphatase 125, Troponin I < 0.01 , Total Protein 7.2, Albumin 4.1, Globulin 3.1, Albumin/Globulin Ratio 1.3, TSH 2.050, Free T4 1.80, CBC w Diff MAN DIFF ORDERED, RBC 4.49, MCV 75.1 L, MCH 24.9 L, MCHC 33.1, RDW 15.5 H, MPV 6.7 L, Gran % 67.8, Lymphocytes % 26.5, Monocytes % 5.0, Eosinophils % 0.4, Basophils % 0.3, Absolute Granulocytes 10.4 H, Absolute Lymphocytes 4.1 H, Absolute Monocytes 0.8 H, Absolute Eosinophils 0.1, Absolute Basophils 0.1, Platelet Estimate ADEQUATE, Hypochromic-Microcytic 1+, Anisocytosis 1+ Microbiology 09/07 1949 STOOL: Clostridium difficile Toxin A & B - COMP 09/07 1948 STOOL: Clostridium difficile Toxin A & B - CAN Cancelled: DUPLICATE 09/07 112 URINE ROUT: Urine Culture - COMP ESCHERICHIA COLI Microbiology 09/07 1949 STOOL: Clostridium difficile Toxin A & B - COMP 09/07 1948 STOOL: Clostridium difficile Toxin A & B - CAN Cancelled: DUPLICATE 09/07 112 URINE ROUT: Urine Culture - COMP ESCHERICHIA COLI Vital Signs Date Time Temp Pulse Resp B/P B/P Pulse O2 O2 Flow FiO2 Mean Ox Delivery Rate 09/09 0800 94 Room Air 09/09 0632 98.4 96 19 140/80 94 Room Air 09/08 2118 98.1 104 18 142/80 96 Room Air 09/08 1439 98.0 97 18 130/80 98 Room Air sodium is up to 132. The stools are negative for C. difficile
[2017-09-09 14:09] VITALS: BP 132/72
[2017-09-09] MEDS ORDERED: CEPHALEXIN500 M3 PO (15:58)
--- NOTE | 2017-09-09 15:59 | Patient Discharge Instructions ---
Discharge Instructions General Discharge Information Special Instructions: - Please stop taking the Diazide until being seen by your PCP. - Please follow up with your primary care physician within 1-2 weeks of discharge. Inform your primary care physician of this admission to [facility]. - Continue your current medications per discharge instructions. - Please watch for these problems: Fever, Chills, Nausea, Vomiting, Shortness of Breath, Productive Cough, Chest Pain/Discomfort, Abdominal Pain, Active Bleeding or Bloody urine/stool. Diet Continue normal diet: Yes Activity Full Activity/No Limits: Yes Acute Coronary Syndrome Inclusion Criteria At DC or during hospital stay patient has or had the following: ACS DIAGNOSIS No Discharge Core Measures Meds if any: Prescribed or Continued at Discharge Meds if any: NOT Prescribed or Continued at Discharge Congestive Heart Failure Inclusion Criteria At DC or during hospital stay patient has or had the following: CHF DIAGNOSIS No Discharge Core Measures Meds if any: Prescribed or Continued at Discharge Meds if any: NOT Prescribed or Continued at Discharge Cerebrovascular accident Inclusion Criteria At DC or during hospital stay patient has or had the following: CVA/TIA Diagnosis No Discharge Core Measures Meds if any: Prescribed or Continued at Discharge Meds if any: NOT Prescribed or Continued at Discharge Venous thromboembolism Inclusion Criteria VTE Diagnosis No VTE Type NONE VTE Confirmed by (Test) NONE Discharge Core Measures - Per Current guidelines, there needs to be overlap - treatment for the first 5 days of Warfarin therapy. - If discharged on Warfarin prior to 5 days of - overlap therapy, the patient will need to be - assessed for post discharge needs including - *Post discharge parental anticoagulation - *Warfarin and/or parental anticoagulation education - *Follow up date to check INR post discharge At least 5 days overlap therapy as Inpatient No Meds if any: Prescribed or Continued at Discharge Note: Overlap Therapy is Warfarin and Anticoagulant Meds if any: NOT Prescribed or Continued at Discharge
[2017-09-09 21:09] VITALS: BP 148/74
--- NOTE | 2017-09-10 07:06 | PN- Housestaff ---
Subjective Follow-up For: worsening mental status Complaints: "my stomach hurts very bad" Subjective: Patient seen and examined at bedside. Daughter at bedside. Despite yesterday's improvement, patient back to altered mental status state from ED today. Continuing to perseverate on "stomach pain", which family says has been going on for over 30 years with workup. Family considering changing dispo plan to STR, dependent on hypertensive event yesterday with patient's . Review of Systems Constitutional: Reports: no symptoms. EENTM: Reports: no symptoms. Cardiovascular: Reports: no symptoms. Respiratory: Reports: no symptoms. Gastrointestinal: Reports: abdominal pain. Genitourinary: Reports: no symptoms, see HPI, frequency, urgency. Musculoskeletal: Reports: no symptoms. Skin: Reports: no symptoms. Neurological/Psychological: Reports: no symptoms. Hematologic/Endocrine: Reports: no symptoms. Immunologic/Allergic: Reports: no symptoms. Objective Last 24 Hrs of Vital Signs/I&O Vital Signs Date Time Temp Pulse Resp B/P B/P Pulse O2 O2 Flow FiO2 Mean Ox Delivery Rate 09/10 1046 Room Air Room Air 09/10 0734 97.5 103 18 140/80 96 09/09 2109 98.2 104 18 148/74 98 Room Air 09/09 1409 98.3 107 20 132/72 97 Room Air Intake & Output 09/10 1600 09/10 0800 09/10 0000 Intake Total 120 120 Output Total 150 Balance 120 -30 Intake, IV 20 20 Intake, Oral 100 100 Output, Urine 150 Physical Exam General Appearance: Cooperative, Mild Distress Skin: No Rashes, No Breakdown Skin Temp/Moisture Exam: Warm/Dry HEENT: Atraumatic, PERRLA, EOMI, Mucous Membr. moist/pink Neck: Supple, No JVD, No thryomegaly Cardiovascular: Regular Rate, Normal S1, Normal S2, No Murmurs, Gallops, Rubs Lungs: Clear to Auscultation, Normal Air Movement Abdomen: Soft, No Tenderness, No Hepatospenomegaly Neurological: Strength at 5/5 X4 Ext, Normal Tone, Sensation Intact Extremities: No Clubbing, No Cyanosis, No Edema, Normal Pulses, No Tenderness/ Swelling Vascular: Normal Pulses, Pulses Symmetrical Current Medications: Current Medications Sig/Shaquille Start time Last Medication Dose Route Stop Time Status Admin Acetaminophen 650 MG Q6P PRN 09/07 1500 AC PO Artificial Tears 2 GTT TID 09/08 1547 AC 09/10 OPH 0835 Aspirin Buffered 81 MG DAILY 09/08 0900 AC 09/10 PO 0835 Ceftriaxone Sodium 1,000 MG 1200 09/08 1200 DC 09/09 IV 09/10 1201 1233 Cephalexin 500 MG Q12 09/09 2100 AC 09/10 PO 0835 Cholecalciferol 1,000 IU DAILY 09/08 0900 AC 09/10 PO 0836 Heparin Sodium 5,000 UNIT Q8 09/07 2200 AC 09/10 (Porcine) SC 0603 Insulin Aspart 0 TIDAC 09/07 1700 AC 09/10 SC 0853 Lactobacillus 1 CAP DAILY 09/08 0900 AC 09/10 Acidophilus PO 0835 Lorazepam 0.5 MG BID 09/07 2100 AC 09/10 PO 09/14 2059 0835 Methimazole 5 MG DAILY 09/08 0900 AC 09/10 PO 0836 Mirtazapine 15 MG QPM 09/07 2100 AC 09/09 PO 2108 Montelukast Sodium 10 MG DAILY 09/08 0900 AC 09/10 PO 0835 Omeprazole 40 MG DAILY AC 09/08 0700 AC 09/10 PO 0603 Patient Medication 1 ED ONE ONE 09/09 1645 DC 09/09 Teaching ED 09/09 1646 1811 Simethicone 40 MG Q6P PRN 09/07 1545 AC 09/10 PO 1053 Last 24 Hrs of Lab/Romie Results Last 24 Hrs of Labs/Mics: Laboratory Tests 09/10/17 0938: Anion Gap 12, Estimated GFR > 60, BUN/Creatinine Ratio 12.5, CBC w Diff NO MAN DIFF REQ, RBC 4.24, MCV 75.1 L, MCH 24.8 L, MCHC 33.0, RDW 15.6 H, MPV 6.3 L , Gran % 65.8, Lymphocytes % 28.1, Monocytes % 4.2, Eosinophils % 1.6, Basophils % 0.3, Absolute Granulocytes 8.7 H, Absolute Lymphocytes 3.7 H, Absolute Monocytes 0.6, Absolute Eosinophils 0.2, Absolute Basophils 0 Assessment/Plan Assessment: 86 year old patient with past medical history of Alzheimer's dementia, hyperthyroidism w/ multiple thyroid nodules, hypertension, anxiety, diabetes type 2 who was brought to the ER by EMS for 3 days of worsening altered mental status and progressive weakness, including urinary incontinence and loose stool. Problem List/Plan: TRE due to dehydration -Admit to general medicine floor -Vitals and I/O monitoring per protocol -stopped NS infusions UTI -CEFTRIAXONE STOPPED, bactrim started -urine culture positive for gram negative rods (Suspected) Hypotonic Hyponatremia -correct Na<7meq/24 hours; currently at 132 from admission 123 -Anion gap corrected -nephrology recs appreciated; patient will not use thiazide diuretics going forward Weakness -pt below baseline functioning -PT consult suggested short term rehab PMH of [place] dementia, microcytic anemia, hyperthyroidism, hypertension, anxiety, diabetes type 2 -hold lisinopril/hctz and oral hypoglycemics -continue other home medicines -simethecone PRN for abdominal gas pain, per family (chronic problem, never addressed before) -pain per pathway DVT prophylaxis: Subcu heparin and ALPS Complete carbohydrate 1 Patient is DNR/DNI Problem List: 1. UTI (urinary tract infection) 2. Hyponatremia syndrome 3. Leukocytosis Pain Ratin Pain Location: abdomen Pain Goal: pain free Pain Plan: simethicone and tylenol Tomorrow's Labs & Rationales: cbc, bep
[2017-09-10 07:34] VITALS: BP 140/80
[2017-09-10 10:07] LABS: ABSOLUTE BASOPHIL COUNT 0 /CUMM (0.0-0.2); ABSOLUTE EOSINOPHIL COUNT 0.2 /CUMM (0.0-0.7); ABSOLUTE GRANULOCYTE CT 8.7 /CUMM (1.4-6.5); ABSOLUTE LYMPH COUNT 3.7 /CUMM (1.2-3.4); ABSOLUTE MONOCYTE COUNT 0.6 /CUMM (0.10-0.60); BASOPHIL % 0.3 % (0.0-2.0); EOSINOPHIL % 1.6 % (0-5); GRANULOCYTE % 65.8 % (42.2-75.2); HEMATOCRIT 31.9 % (37-47); MEAN CORPUSCULAR HGB 24.8 PG (27.0-31.0); MEAN CORPUSCULAR VOLUME 75.1 FL (81.0-99.0); MEAN PLATELET VOLUME 6.3 FL (7.4-10.4); PLATELET COUNT 298 /CUMM (130-400); RBC DISTRIBUTION WIDTH 15.6 % (11.5-14.5); RED BLOOD CELL CT 4.24 /CUMM (4.20-5.40); WHITE BLOOD CELL COUNT 13.2 /CUMM (4.8-10.8)
--- NOTE | 2017-09-10 10:20 | PN- Nephrology ---
Assessment/Plan Nephrology Assessment: Hyponatremia most likely due to thiazide diuretic. improving. labs pending today.Abdominal discomfort plans per medical team. Await today's labs expect sodium to slowly improve. Avoid thaizide diuretics Carrillo Haro MD Suggestion: . Subjective Subjective: Pt c/o abdominal pain this morning. In bed. Objective Vital Signs and I&Os F NAd 140/80 97 103 Lungs clear Cor RRR Abd soft pos BS mild LLQ tenderness to palp Ext neg edema Results Pertinent Lab Results: Labs pending\
--- NOTE | 2017-09-10 11:16 | PN- Att Addend ---
Attending Addendum Attending Brief Note Patient was better yesterday today again little confused complaining of abdominal discomfort not wanting to ambulate. Vital signs are stable no fever, no major changes on physical. The white count is still slightly elevated. Patient on antibiotic therapy. Will get another PT evaluation and patient probably will need short-term rehab. Intake & Output 09/10 1600 09/10 0400 09/09 1600 09/09 0400 09/08 1600 09/08 0400 Intake Total 855 701 3100 485 1895 1200 Output Total 150 Balance 120 -30 3650 564 5621 1200 Intake, IV 20 20 385 1475 800 Intake, Oral 067 944 3750 100 420 400 Number 1 1 1 6 Bowel Movements Output, Urine 150 Patient 162 lb 162 lb Weight Weight Reported by Patient Measurement Method Current Medications Sig/Shaquille Start time Last Medication Dose Route Stop Time Status Admin Acetaminophen 650 MG Q6P PRN 09/07 1500 AC PO Artificial Tears 2 GTT TID 09/08 1547 AC 09/10 OPH 0835 Aspirin Buffered 81 MG DAILY 09/08 09 AC 09/10 PO 0835 Ceftriaxone Sodium 1,000 MG 1200 09/08 1200 DC 09/09 IV 09/10 1201 1233 Cephalexin 500 MG Q12 09/09 2100 AC 09/10 PO 0835 Cholecalciferol 1,000 IU DAILY 09/08 0900 AC 09/10 PO 0836 Heparin Sodium 5,000 UNIT Q8 09/07 2200 AC 09/10 (Porcine) SC 0603 Insulin Aspart 0 TIDAC 09/07 1700 AC 09/10 SC 0853 Lactobacillus 1 CAP DAILY 09/08 09 AC 09/10 Acidophilus PO 0835 Lorazepam 0.5 MG BID 09/07 2100 AC 09/10 PO 09/14 2058 0835 Methimazole 5 MG DAILY 09/08 0900 AC 09/10 PO 0836 Mirtazapine 15 MG QPM 09/07 2100 AC 09/09 PO 2108 Montelukast Sodium 10 MG DAILY 09/08 09 AC 09/10 PO 0835 Omeprazole 40 MG DAILY AC 09/08 0700 AC 09/10 PO 0603 Patient Medication 1 ED ONE ONE 09/09 1645 DC 09/09 Teaching ED 09/09 1646 1811 Simethicone 40 MG Q6P PRN 09/07 1545 AC 09/10 PO 1053 Laboratory Tests 09/10/17 0938: Anion Gap 12, Estimated GFR > 60, BUN/Creatinine Ratio 12.5, CBC w Diff NO MAN DIFF REQ, RBC 4.24, MCV 75.1 L, MCH 24.8 L, MCHC 33.0, RDW 15.6 H, MPV 6.3 L , Gran % 65.8, Lymphocytes % 28.1, Monocytes % 4.2, Eosinophils % 1.6, Basophils % 0.3, Absolute Granulocytes 8.7 H, Absolute Lymphocytes 3.7 H, Absolute Monocytes 0.6, Absolute Eosinophils 0.2, Absolute Basophils 0 09/09/17 0609: Anion Gap 12, Estimated GFR 59 L, BUN/Creatinine Ratio 7.8, CBC w Diff NO MAN DIFF REQ, RBC 4.24, MCV 76.1 L, MCH 24.1 L, MCHC 31.7 L, RDW 15.6 H, MPV 6.8 L, Gran % 58.3, Lymphocytes % 35.5, Monocytes % 4.2, Eosinophils % 1.5, Basophils % 0.5, Absolute Granulocytes 7.1 H, Absolute Lymphocytes 4.3 H, Absolute Monocytes 0.5, Absolute Eosinophils 0.2, Absolute Basophils 0.1 09/08/17 0615: Anion Gap 14, Estimated GFR 52 L, BUN/Creatinine Ratio 11.0, Cortisol AM Sample 25.0 H, CBC w Diff NO MAN DIFF REQ, RBC 3.92 L, MCV 75.2 L, MCH 24.8 L, MCHC 33.0, RDW 15.7 H, MPV 6.8 L, Gran % 60.6, Lymphocytes % 33.0, Monocytes % 4.9, Eosinophils % 1.2, Basophils % 0.3, Absolute Granulocytes 7.5 H, Absolute Lymphocytes 4.1 H, Absolute Monocytes 0.6, Absolute Eosinophils 0.2, Absolute Basophils 0 09/07/17 2158: Anion Gap 12, Estimated GFR 47 L, BUN/Creatinine Ratio 12.7, Lactic Acid 2.1 09/07/17 1610: Lactic Acid 2.6 H, Acetone Level NEGATIVE 09/07/17 1135: Urine Color YEL, Urine Clarity CLDY H, Urine pH 6.0, Ur Specific [place] 1.025, Urine Protein 100 H, Urine Ketones TRACE H, Urine Nitrite NEG, Urine Bilirubin NEG, Urine Urobilinogen 0.2, Ur Leukocyte Esterase LARGE H, Ur Microscopic SEDIMENT EXAMINED, Urine RBC FEW H, Urine WBC PACKD H, Urine Hemoglobin MOD H , Urine Glucose NEG 09/07/17 1135: Urine Osmolality 227 L, Ur Random Creatinine 87.1, Ur Random Sodium 50, Ur Random Potassium 17.8, Fraction Sodium Excret 0.6 09/07/17 1125: Anion Gap 17 H, Estimated GFR 39 L, BUN/Creatinine Ratio 11.5, Glucose 166 H, Hemoglobin A1c 7.5 H, Serum Osmolality 257 L, Lactic Acid 1.9, Calcium 8.8, Total Bilirubin 0.8, AST 15, ALT 20, Alkaline Phosphatase 125, Troponin I < 0.01 , Total Protein 7.2, Albumin 4.1, Globulin 3.1, Albumin/Globulin Ratio 1.3, TSH 2.050, Free T4 1.80, CBC w Diff MAN DIFF ORDERED, RBC 4.49, MCV 75.1 L, MCH 24.9 L, MCHC 33.1, RDW 15.5 H, MPV 6.7 L, Gran % 67.8, Lymphocytes % 26.5, Monocytes % 5.0, Eosinophils % 0.4, Basophils % 0.3, Absolute Granulocytes 10.4 H, Absolute Lymphocytes 4.1 H, Absolute Monocytes 0.8 H, Absolute Eosinophils 0.1, Absolute Basophils 0.1, Platelet Estimate ADEQUATE, Hypochromic-Microcytic 1+, Anisocytosis 1+ Microbiology 09/07 1949 STOOL: Clostridium difficile Toxin A & B - COMP 09/07 1948 STOOL: Clostridium difficile Toxin A & B - CAN Cancelled: DUPLICATE 09/07 1124 URINE ROUT: Urine Culture - COMP ESCHERICHIA COLI Microbiology 09/07 1949 STOOL: Clostridium difficile Toxin A & B - COMP 09/07 1948 STOOL: Clostridium difficile Toxin A & B - CAN Cancelled: DUPLICATE 09/07 1124 URINE ROUT: Urine Culture - COMP ESCHERICHIA COLI Vital Signs Date Time Temp Pulse Resp B/P B/P Pulse O2 O2 Flow FiO2 Mean Ox Delivery Rate 09/10 1046 Room Air Room Air 09/10 0734 97.5 103 18 140/80 96 09/09 2109 98.2 104 18 148/74 98 Room Air 09/09 1409 98.3 107 20 132/72 97 Room Air Sodium 129 today a little lower.
[2017-09-10 15:41] VITALS: BP 140/68
[2017-09-10 21:33] VITALS: BP 132/80
[2017-09-11 06:29] VITALS: BP 154/76
[2017-09-11 08:22] LABS: ABSOLUTE BASOPHIL COUNT 0.1 /CUMM (0.0-0.2); ABSOLUTE EOSINOPHIL COUNT 0.2 /CUMM (0.0-0.7); ABSOLUTE GRANULOCYTE CT 8.7 /CUMM (1.4-6.5); ABSOLUTE LYMPH COUNT 4.4 /CUMM (1.2-3.4); ABSOLUTE MONOCYTE COUNT 0.6 /CUMM (0.10-0.60); BASOPHIL % 0.5 % (0.0-2.0); EOSINOPHIL % 1.6 % (0-5); HEMATOCRIT 30.2 % (37-47); MEAN CORPUSCULAR HGB 24.6 PG (27.0-31.0); MEAN CORPUSCULAR HGB CONC 32.7 G/DL (33.0-37.0); MEAN CORPUSCULAR VOLUME 75.1 FL (81.0-99.0); MEAN PLATELET VOLUME 6.7 FL (7.4-10.4); PLATELET COUNT 288 /CUMM (130-400); RBC DISTRIBUTION WIDTH 15.4 % (11.5-14.5); RED BLOOD CELL CT 4.02 /CUMM (4.20-5.40); WHITE BLOOD CELL COUNT 14.1 /CUMM (4.8-10.8)
--- NOTE | 2017-09-11 08:41 | PN- Housestaff ---
Subjective Follow-up For: altered mental status Complaints: stomach pain Subjective: Patient seen and examined at the bedside. 2 daughters at bedside. Patient seems more oriented today, but continues to perseverate on abdominal pain. Discussion with family regarding placement and STR had to be postponed due to continued white count, which concerned the family. Further discussion to follow. Review of Systems Constitutional: Reports: weakness. EENTM: Reports: throat pain. Cardiovascular: Reports: no symptoms. Respiratory: Reports: no symptoms. Gastrointestinal: Reports: abdominal pain. Genitourinary: Reports: frequency, hesitation, urgency. Denies: no symptoms (incontinence). Musculoskeletal: Reports: no symptoms. Skin: Reports: no symptoms. Neurological/Psychological: Reports: no symptoms. Objective Last 24 Hrs of Vital Signs/I&O Vital Signs Date Time Temp Pulse Resp B/P B/P Pulse O2 O2 Flow FiO2 Mean Ox Delivery Rate 09/11 1356 98.3 101 20 154/78 97 Room Air 09/11 0629 99.3 106 20 154/76 94 09/10 2133 99.6 106 18 132/80 100 09/10 1541 98.4 102 20 140/68 97 Room Air Intake & Output 09/11 1600 09/11 0800 09/11 0000 Intake Total 160 170 Output Total Balance 160 170 Intake, IV 10 10 Intake, Oral 150 160 Number 1 Bowel Movements Physical Exam General Appearance: Alert, Cooperative, No Acute Distress, not oriented to place or time,oriented to person Skin: No Rashes, No Breakdown, No Significant Lesion Skin Temp/Moisture Exam: Warm/Dry HEENT: Atraumatic, PERRLA, EOMI, Mucous Membr. moist/pink Neck: Supple, No JVD, mild thyromegaly, unchanged; difficult to appreciate given body habitus Lymphatic: Axillary nl, Cervical nl Cardiovascular: Regular Rate, Normal S1, Normal S2, Gallops, Rubs, systolic murmur Lungs: Clear to Auscultation, Normal Air Movement Abdomen: Normal Bowel Sounds, Soft, No Tenderness, No Hepatospenomegaly, No Masses Neurological: decreased strength and tone x4ext; unable to ambulate independently, difficult speech (partially due to perseverating thoughts) Extremities: No Clubbing, No Cyanosis, No Edema, Normal Pulses, No Tenderness/ Swelling Vascular: Normal Pulses, Pulses Symmetrical Current Medications: Current Medications Sig/Shaquille Start time Last Medication Dose Route Stop Time Status Admin Acetaminophen 650 MG Q6P PRN 09/07 1500 AC PO Artificial Tears 2 GTT TID 09/08 1547 AC 09/11 OPH 1340 Aspirin Buffered 81 MG DAILY 09/08 0900 AC 09/11 PO 1011 Cholecalciferol 1,000 IU DAILY 09/08 0900 AC 09/11 PO 1012 Heparin Sodium 5,000 UNIT Q8 09/07 2200 AC 09/11 (Porcine) SC 1340 Insulin Aspart 0 TIDAC 09/07 1700 AC 09/11 SC 1341 Lactobacillus 1 CAP DAILY 09/08 0900 AC 09/11 Acidophilus PO 1011 Lorazepam 0.5 MG BID 09/07 2100 AC 09/11 PO 09/14 205 1011 Methimazole 5 MG DAILY 09/08 0900 AC 09/11 PO 1012 Mirtazapine 15 MG QPM 09/07 2100 AC 09/10 PO 2044 Montelukast Sodium 10 MG DAILY 09/08 0900 AC 09/11 PO 1012 Nystatin 1 FARAZ Q6-PRN PRN 09/10 2245 AC 09/11 TOP 1011 Omeprazole 40 MG DAILY AC 09/08 0700 AC 09/11 PO 0542 Simethicone 40 MG Q6P PRN 09/07 1545 AC 09/10 PO 1053 Trimethoprim/ 1 TAB BID 09/10 1330 AC 09/11 Sulfamethoxazole PO 1011 Last 24 Hrs of Lab/Romie Results Last 24 Hrs of Labs/Mics: Laboratory Tests 09/11/17 0701: Anion Gap 13, Estimated GFR 59 L, BUN/Creatinine Ratio 10.0, CBC w Diff NO MAN DIFF REQ, RBC 4.02 L, MCV 75.1 L, MCH 24.6 L, MCHC 32.7 L, RDW 15.4 H, MPV 6.7 L, Gran % 62.0, Lymphocytes % 31.3, Monocytes % 4.6, Eosinophils % 1.6, Basophils % 0.5, Absolute Granulocytes 8.7 H, Absolute Lymphocytes 4.4 H, Absolute Monocytes 0.6, Absolute Eosinophils 0.2, Absolute Basophils 0.1 Microbiology 09/11 1454 URINE ROUT: Urine Culture - ORD Orders Fingersticks (last 24 hrs): 200-230 Assessment/Plan Assessment: 86 year old patient with past medical history of Alzheimer's dementia, hyperthyroidism w/ multiple thyroid nodules, hypertension, anxiety, diabetes type 2 who was brought to the ER by EMS for 3 days of worsening altered mental status and progressive weakness, including urinary incontinence and loose stool. Problem List/Plan: TRE due to dehydration -Admit to general medicine floor -Vitals and I/O monitoring per protocol -stopped NS infusions as patient is tolerating diet UTI -CEFTRIAXONE STOPPED, bactrim started -urine culture positive for gram negative rods -repeat urine cultures, as white count continues to rise even on abx (Suspected) Hypotonic Hyponatremia -correct Na<7meq/24 hours; currently at 131 from admission 123 -Anion gap corrected -nephrology recs appreciated; patient will not use thiazide diuretics going forward Weakness -pt below baseline functioning -PT consult suggested short term rehab PMH of [place] dementia, microcytic anemia, hyperthyroidism, hypertension, anxiety, diabetes type 2 -hold lisinopril/hctz and oral hypoglycemics -continue other home medicines -simethecone PRN for abdominal gas pain, per family (chronic problem, never addressed before) -pain per pathway DVT prophylaxis: Subcu heparin and ALPS Complete carbohydrate 1 Patient is DNR/DNI Problem List: 1. UTI (urinary tract infection) 2. Hyponatremia syndrome 3. Leukocytosis Pain Ratin Pain Location: abdomen Pain Goal: PAIN FREE Pain Plan: simethicone and tylenol Tomorrow's Labs & Rationales: cbc, bep Discharge Plan Discharge Disposition: STR/NH Stable for Discharge? No Anticipated Discharge (Day): unknown
[2017-09-11 13:56] VITALS: BP 154/78
--- NOTE | 2017-09-11 18:00 | PN- Att Addend ---
Attending Addendum Attending Brief Note Today again patient looks better brighter not complaining of any abdominal pain family at the bedside Temp max 99 6. Other vital signs are stable. No major changes on physical. The only concern is that the white count is still elevated despite antibiotic therapy. Recently patient straight catheterized the patient go the urine at the end it was a little "murky". Will wait for the results of the urine culture and if necessary adjust antibiotic therapy again. Intake & Output 09/11 1600 09/11 0400 09/10 0400 09/09 0400 Intake Total 160 170 514 120 6309 485 Output Total 350 150 Balance 160 170 490 -30 1120 485 Intake, IV 10 10 20 20 385 Intake, Oral 150 160 842 181 9137 100 Number 1 2 1 1 Bowel Movements Output, Urine 350 150 Patient 162 lb Weight Current Medications Sig/Shaquille Start time Last Medication Dose Route Stop Time Status Admin Acetaminophen 650 MG Q6P PRN 09/07 1500 AC PO Artificial Tears 2 GTT TID 09/08 1547 AC 09/11 OPH 1340 Aspirin Buffered 81 MG DAILY 09/08 09 AC 09/11 PO 1011 Cholecalciferol 1,000 IU DAILY 09/08 0900 AC 09/11 PO 1012 Heparin Sodium 5,000 UNIT Q8 09/07 2200 AC 09/11 (Porcine) SC 1340 Insulin Aspart 0 TIDAC 09/07 1700 AC 09/11 SC 1341 Lactobacillus 1 CAP DAILY 09/08 09 AC 09/11 Acidophilus PO 1011 Lorazepam 0.5 MG BID 09/07 2100 AC 09/11 PO 09/14 2058 1011 Methimazole 5 MG DAILY 09/08 09 AC 09/11 PO 1012 Mirtazapine 15 MG QPM 09/07 2100 AC 09/10 PO 2044 Montelukast Sodium 10 MG DAILY 09/08 09 AC 09/11 PO 1012 Nystatin 1 FARAZ BID PRN 09/11 1615 AC TOP Nystatin 1 FARAZ Q6-PRN PRN 09/10 2245 AC 09/11 TOP 1011 Omeprazole 40 MG DAILY AC 09/08 0700 AC 09/11 PO 0542 Simethicone 40 MG Q6P PRN 09/07 1545 AC 09/10 PO 1053 Trimethoprim/ 1 TAB BID 09/10 1330 AC 09/11 Sulfamethoxazole PO 1011 Laboratory Tests 09/11/17 0701: Anion Gap 13, Estimated GFR 59 L, BUN/Creatinine Ratio 10.0, CBC w Diff NO MAN DIFF REQ, RBC 4.02 L, MCV 75.1 L, MCH 24.6 L, MCHC 32.7 L, RDW 15.4 H, MPV 6.7 L, Gran % 62.0, Lymphocytes % 31.3, Monocytes % 4.6, Eosinophils % 1.6, Basophils % 0.5, Absolute Granulocytes 8.7 H, Absolute Lymphocytes 4.4 H, Absolute Monocytes 0.6, Absolute Eosinophils 0.2, Absolute Basophils 0.1 09/10/17 0938: Anion Gap 12, Estimated GFR > 60, BUN/Creatinine Ratio 12.5, CBC w Diff NO MAN DIFF REQ, RBC 4.24, MCV 75.1 L, MCH 24.8 L, MCHC 33.0, RDW 15.6 H, MPV 6.3 L , Gran % 65.8, Lymphocytes % 28.1, Monocytes % 4.2, Eosinophils % 1.6, Basophils % 0.3, Absolute Granulocytes 8.7 H, Absolute Lymphocytes 3.7 H, Absolute Monocytes 0.6, Absolute Eosinophils 0.2, Absolute Basophils 0 09/09/17 0609: Anion Gap 12, Estimated GFR 59 L, BUN/Creatinine Ratio 7.8, CBC w Diff NO MAN DIFF REQ, RBC 4.24, MCV 76.1 L, MCH 24.1 L, MCHC 31.7 L, RDW 15.6 H, MPV 6.8 L, Gran % 58.3, Lymphocytes % 35.5, Monocytes % 4.2, Eosinophils % 1.5, Basophils % 0.5, Absolute Granulocytes 7.1 H, Absolute Lymphocytes 4.3 H, Absolute Monocytes 0.5, Absolute Eosinophils 0.2, Absolute Basophils 0.1 Microbiology 09/11 1699 URINE ROUT: Urine Culture - RECD Microbiology 09/11 1699 URINE ROUT: Urine Culture - RECD Vital Signs Date Time Temp Pulse Resp B/P B/P Pulse O2 O2 Flow FiO2 Mean Ox Delivery Rate 09/11 1356 98.3 101 20 154/78 97 Room Air 09/11 0629 99.3 106 20 154/76 94 09/10 2133 99.6 106 18 132/80 100
[2017-09-11 22:38] VITALS: BP 133/73
[2017-09-12 06:50] VITALS: BP 162/86
--- NOTE | 2017-09-12 07:53 | PN- Housestaff ---
Subjective Follow-up For: Altered mental status/UTI Complaints: abdominal pain Subjective: Patient seen and examined at the bedside. One daughter arrived while patient was being interviewed and examined. Patient seems more oriented today, was making jokes and seem to be in good spirits. Placement of S discussion was postponed, white count remains high. Further discussion tomorrow with Dr. Buckley. Review of Systems Constitutional: Reports: weakness. Gastrointestinal: Reports: abdominal pain. Genitourinary: Reports: see HPI, frequency, pain, urgency. Denies: no symptoms (incontinence). Objective Last 24 Hrs of Vital Signs/I&O Vital Signs Date Time Temp Pulse Resp B/P B/P Pulse O2 O2 Flow FiO2 Mean Ox Delivery Rate 09/12 0650 98.3 109 20 162/86 94 09/11 2238 100.4 98 20 133/73 97 Room Air 09/11 1356 98.3 101 20 154/78 97 Room Air Physical Exam General Appearance: Alert, Oriented X3, Cooperative, No Acute Distress, Mild Distress Skin: No Rashes, No Breakdown, No Significant Lesion Skin Temp/Moisture Exam: Warm/Dry HEENT: Atraumatic, PERRLA, EOMI, Mucous Membr. moist/pink Neck: Supple, No JVD, mildly enlarged thyroid Cardiovascular: Regular Rate, Normal S1, Normal S2, Gallops, Rubs, systolic murmur Lungs: Clear to Auscultation, Normal Air Movement Abdomen: Soft, No Tenderness Neurological: Normal Speech, Strength at 5/5 X4 Ext, Normal Tone, Sensation Intact Extremities: No Clubbing, No Cyanosis, No Edema, Normal Pulses, No Tenderness/ Swelling Vascular: Normal Pulses, Pulses Symmetrical Current Medications: Current Medications Sig/Shaquille Start time Last Medication Dose Route Stop Time Status Admin Acetaminophen 650 MG Q6P PRN 09/07 1500 AC PO Artificial Tears 2 GTT TID 09/08 1547 AC 09/12 OPH 1034 Aspirin Buffered 81 MG DAILY 09/08 0900 AC 09/12 PO 1037 Cholecalciferol 1,000 IU DAILY 09/08 09 AC 09/12 PO 1037 Heparin Sodium 5,000 UNIT Q8 09/07 2200 AC 09/12 (Porcine) SC 0524 Insulin Aspart 0 TIDAC 09/07 1700 AC 09/12 SC 1034 Lactobacillus 1 CAP DAILY 09/08 0909/12 Acidophilus PO 1037 Lorazepam 0.5 MG BID 09/07 2100 AC 09/12 PO 09/14 Methimazole 5 MG DAILY 09/08 0900 AC 09/12 PO 1037 Mirtazapine 15 MG QPM 09/07 2100 AC 09/11 PO 210 Montelukast Sodium 10 MG DAILY 09/08 0900 AC 09/12 PO 1037 Nystatin 1 FARAZ BID PRN 09/11 1615 AC TOP Nystatin 1 FARAZ Q6-PRN PRN 09/10 2245 AC 09/11 TOP 1011 Omeprazole 40 MG DAILY AC 09/08 0700 AC 09/12 PO 0523 Simethicone 40 MG Q6P PRN 09/07 1545 AC 09/10 PO 1053 Trimethoprim/ 1 TAB BID 09/10 1330 AC 09/12 Sulfamethoxazole PO 1035 Last 24 Hrs of Lab/Romie Results Last 24 Hrs of Labs/Mics: Laboratory Tests 09/12/17 0649: Anion Gap 14, Estimated GFR 52 L, BUN/Creatinine Ratio 9.0, CBC w Diff NO MAN DIFF REQ, RBC 4.04 L, MCV 74.6 L, MCH 24.6 L, MCHC 33.0, RDW 16.2 H, MPV 6.8 L, Gran % 64.7, Lymphocytes % 29.1, Monocytes % 4.1, Eosinophils % 1.7, Basophils % 0.4, Absolute Granulocytes 8.4 H, Absolute Lymphocytes 3.8 H, Absolute Monocytes 0.5, Absolute Eosinophils 0.2, Absolute Basophils 0.1 Microbiology 09/11 1700 URINE ROUT: Urine Culture - RES Assessment/Plan Assessment: 86 year old patient with past medical history of Alzheimer's dementia, hyperthyroidism w/ multiple thyroid nodules, hypertension, anxiety, diabetes type 2 who was brought to the ER by EMS for 3 days of worsening altered mental status and progressive weakness, including urinary incontinence and loose stool. Problem List/Plan: TRE due to dehydration -Admit to general medicine floor -Vitals and I/O monitoring per protocol -stopped NS infusions as patient is tolerating diet UTI -CEFTRIAXONE STOPPED, bactrim started and continued -urine culture positive for gram negative rods -repeat urine cultures, as white count continues to rise even on abx -wbc down to 13.0 today (Suspected) Hypotonic Hyponatremia -correct Na<7meq/24 hours; currently at 131 from admission 123 -Anion gap corrected -nephrology recs appreciated; patient will not use thiazide diuretics going forward Weakness -pt below baseline functioning -PT consult suggested short term rehab PMH of [place] dementia, microcytic anemia, hyperthyroidism, hypertension, anxiety, diabetes type 2 -hold lisinopril/hctz and oral hypoglycemics -continue other home medicines -simethecone PRN for abdominal gas pain, per family (chronic problem, never addressed before) -pain per pathway DVT prophylaxis: Subcu heparin and ALPS Complete carbohydrate 1 Patient is DNR/DNI Problem List: 1. UTI (urinary tract infection) 2. Hyponatremia syndrome 3. Leukocytosis Pain Ratin Pain Location: abdomen Pain Goal: pain free Pain Plan: SIMETHICONE and Tylenol Tomorrow's Labs & Rationales: CBC, BEP
[2017-09-12 08:45] LABS: ABSOLUTE BASOPHIL COUNT 0.1 /CUMM (0.0-0.2); ABSOLUTE EOSINOPHIL COUNT 0.2 /CUMM (0.0-0.7); ABSOLUTE GRANULOCYTE CT 8.4 /CUMM (1.4-6.5); ABSOLUTE LYMPH COUNT 3.8 /CUMM (1.2-3.4); ABSOLUTE MONOCYTE COUNT 0.5 /CUMM (0.10-0.60); BASOPHIL % 0.4 % (0.0-2.0); EOSINOPHIL % 1.7 % (0-5); GRANULOCYTE % 64.7 % (42.2-75.2); HEMATOCRIT 30.1 % (37-47); MEAN CORPUSCULAR HGB 24.6 PG (27.0-31.0); MEAN CORPUSCULAR VOLUME 74.6 FL (81.0-99.0); MEAN PLATELET VOLUME 6.8 FL (7.4-10.4); PLATELET COUNT 291 /CUMM (130-400); RBC DISTRIBUTION WIDTH 16.2 % (11.5-14.5); RED BLOOD CELL CT 4.04 /CUMM (4.20-5.40)
[2017-09-12 14:54] VITALS: BP 132/74
--- NOTE | 2017-09-12 15:31 | PN- Att Addend ---
Attending Addendum Attending Brief Note Patient sitting in the chair 2 of her daughters at the bedside. Again not feeling good today. Seems she has a good day and then a bad day. Temp max 100.4. The rest of the vital signs are stable. No changes on physical examination. Her white count today is 13,000 down a little bit from yesterday. Yesterday's urine culture no growth after 24 hours. In a.m. we will check again the white count do another PT eval and start disposition plans to go to short- term rehabilitation.. Intake & Output 09/12 1600 09/12 0400 09/11 1600 09/11 0400 09/10 1600 09/10 0400 Intake Total 760 170 840 120 Output Total 300 350 150 Balance 460 170 490 -30 Intake, IV 10 10 20 20 Intake, Oral 750 160 820 100 Number 2 2 Bowel Movements Output, Urine 300 350 150 Current Medications Sig/Shaquille Start time Last Medication Dose Route Stop Time Status Admin Acetaminophen 650 MG Q6P PRN 09/07 1500 AC PO Artificial Tears 2 GTT TID 09/08 1547 AC 09/12 OPH 1424 Aspirin Buffered 81 MG DAILY 09/08 09 AC 09/12 PO 1037 Cholecalciferol 1,000 IU DAILY 09/08 09 AC 09/12 PO 1037 Heparin Sodium 5,000 UNIT Q8 09/07 2200 09/12 (Porcine) SC 1424 Insulin Aspart 0 TIDAC 09/07 1700 09/12 SC 1425 Lactobacillus 1 CAP DAILY 09/08 09 AC 09/12 Acidophilus PO 1037 Lorazepam 0.5 MG BID 09/07 2100 09/12 PO 09/14 2058 1033 Methimazole 5 MG DAILY 09/08 09 AC 09/12 PO 1037 Mirtazapine 15 MG QPM 09/07 2100 09/11 PO 2101 Montelukast Sodium 10 MG DAILY 09/08 09 AC 09/12 PO 1037 Nystatin 1 FARAZ BID PRN 09/11 1615 AC TOP Nystatin 1 FARAZ Q6-PRN PRN 09/10 2245 AC 09/11 TOP 1011 Omeprazole 40 MG DAILY AC 09/08 0700 AC 09/12 PO 0523 Simethicone 40 MG Q6P PRN 09/07 1545 AC 09/10 PO 1053 Trimethoprim/ 1 TAB BID 09/10 1330 AC 09/12 Sulfamethoxazole PO 1035 Laboratory Tests 09/12/17 0649: Anion Gap 14, Estimated GFR 52 L, BUN/Creatinine Ratio 9.0, CBC w Diff NO MAN DIFF REQ, RBC 4.04 L, MCV 74.6 L, MCH 24.6 L, MCHC 33.0, RDW 16.2 H, MPV 6.8 L, Gran % 64.7, Lymphocytes % 29.1, Monocytes % 4.1, Eosinophils % 1.7, Basophils % 0.4, Absolute Granulocytes 8.4 H, Absolute Lymphocytes 3.8 H, Absolute Monocytes 0.5, Absolute Eosinophils 0.2, Absolute Basophils 0.1 09/11/17 0701: Anion Gap 13, Estimated GFR 59 L, BUN/Creatinine Ratio 10.0, CBC w Diff NO MAN DIFF REQ, RBC 4.02 L, MCV 75.1 L, MCH 24.6 L, MCHC 32.7 L, RDW 15.4 H, MPV 6.7 L, Gran % 62.0, Lymphocytes % 31.3, Monocytes % 4.6, Eosinophils % 1.6, Basophils % 0.5, Absolute Granulocytes 8.7 H, Absolute Lymphocytes 4.4 H, Absolute Monocytes 0.6, Absolute Eosinophils 0.2, Absolute Basophils 0.1 09/10/17 0938: Anion Gap 12, Estimated GFR > 60, BUN/Creatinine Ratio 12.5, CBC w Diff NO MAN DIFF REQ, RBC 4.24, MCV 75.1 L, MCH 24.8 L, MCHC 33.0, RDW 15.6 H, MPV 6.3 L , Gran % 65.8, Lymphocytes % 28.1, Monocytes % 4.2, Eosinophils % 1.6, Basophils % 0.3, Absolute Granulocytes 8.7 H, Absolute Lymphocytes 3.7 H, Absolute Monocytes 0.6, Absolute Eosinophils 0.2, Absolute Basophils 0 Microbiology 09/11 1699 URINE ROUT: Urine Culture - RES Microbiology 09/11 1699 URINE ROUT: Urine Culture - RES Vital Signs Date Time Temp Pulse Resp B/P B/P Pulse O2 O2 Flow FiO2 Mean Ox Delivery Rate 09/12 1454 98.9 109 18 132/74 96 Room Air 09/12 0650 98.3 109 20 162/86 94 09/11 2238 100.4 98 20 133/73 97 Room Air
[2017-09-12 21:39] VITALS: BP 130/74
[2017-09-13 07:11] VITALS: BP 150/78
--- NOTE | 2017-09-13 07:15 | PN- Housestaff ---
Subjective Follow-up For: Altered mental status/UTI Complaints: abdominal pain Subjective: Patient seen and examined at the bedside. No family present. Patient continues to complain of gas pain. Denies fever/chills/night sweats/chest pain/abdominal pain/urinary symptoms. Review of Systems Constitutional: Reports: see HPI. Objective Last 24 Hrs of Vital Signs/I&O Vital Signs Date Time Temp Pulse Resp B/P B/P Pulse O2 O2 Flow FiO2 Mean Ox Delivery Rate 09/13 0711 98.3 97 20 150/78 95 09/12 2139 97.5 105 18 130/74 95 Room Air 09/12 1454 98.9 109 18 132/74 96 Room Air Intake & Output 09/13 1600 09/13 0800 09/13 0000 Intake Total 100 100 Output Total Balance 100 100 Intake, Oral 100 100 Physical Exam General Appearance: Alert, Cooperative, No Acute Distress, disoriented and demented at baseline Skin: No Rashes, No Breakdown, No Significant Lesion Skin Temp/Moisture Exam: Warm/Dry HEENT: Atraumatic, PERRLA, EOMI, Mucous Membr. moist/pink Neck: No JVD, +2 Carotid Pulse wo Bruit Lymphatic: Axillary nl, Cervical nl Cardiovascular: Regular Rate, Normal S1, Normal S2, No Murmurs, Gallops, Rubs Lungs: Clear to Auscultation, Normal Air Movement Abdomen: Normal Bowel Sounds, Soft, No Tenderness, No Hepatospenomegaly, No Masses Neurological: Normal Speech, Normal Tone, Sensation Intact Extremities: No Clubbing, No Cyanosis, No Edema, Normal Pulses, No Tenderness/ Swelling Vascular: Normal Pulses, Pulses Symmetrical Current Medications: Current Medications Sig/Shaquille Start time Last Medication Dose Route Stop Time Status Admin Acetaminophen 650 MG .STK-MED ONE 09/13 0532 DC PO 09/13 0533 Acetaminophen 650 MG Q6P PRN 09/07 1500 AC 09/13 PO 0539 Artificial Tears 2 GTT TID 09/08 1547 AC 09/13 OPH 1346 Aspirin Buffered 81 MG DAILY 09/08 0900 AC 09/13 PO 0823 Cholecalciferol 1,000 IU DAILY 09/08 0900 AC 09/13 PO 0823 Heparin Sodium 5,000 UNIT Q8 09/07 2200 AC 09/13 (Porcine) SC 1346 Insulin Aspart 0 TIDAC 09/07 1700 AC 09/13 SC 1346 Lactobacillus 1 CAP DAILY 09/08 0900 AC 09/13 Acidophilus PO 08 Lorazepam 0.5 MG BID 09/07 2100 AC 09/13 PO 09/14 2058 0824 Methimazole 5 MG DAILY 09/08 0900 AC 09/13 PO 0824 Mirtazapine 15 MG QPM 09/07 2100 AC 09/12 PO 2144 Montelukast Sodium 10 MG DAILY 09/08 0900 AC 09/13 PO 0824 Nystatin 1 FARAZ BID PRN 09/11 1615 AC TOP Nystatin 1 FARAZ Q6-PRN PRN 09/10 2245 AC 09/11 TOP 1011 Omeprazole 40 MG DAILY AC 09/08 0700 AC 09/13 PO 0539 Patient Medication 1 ED ONE ONE 09/13 1245 DC 09/13 Teaching ED 09/13 1246 1346 Simethicone 40 MG Q6 09/13 1800 AC PO Simethicone 40 MG Q6P PRN 09/07 1545 DC 09/13 PO 1337 Trimethoprim/ 1 TAB BID 09/10 1330 AC 09/13 Sulfamethoxazole PO 0823 Last 24 Hrs of Lab/Romie Results Last 24 Hrs of Labs/Mics: Laboratory Tests 09/13/17 0651: Anion Gap 13, Estimated GFR 52 L, BUN/Creatinine Ratio 11.0, CBC w Diff NO MAN DIFF REQ, RBC 4.02 L, MCV 75.6 L, MCH 24.5 L, MCHC 32.5 L, RDW 15.9 H, MPV 6.8 L, Gran % 52.4, Lymphocytes % 38.3, Monocytes % 5.2, Eosinophils % 3.6, Basophils % 0.5, Absolute Granulocytes 5.9, Absolute Lymphocytes 4.3 H, Absolute Monocytes 0.6, Absolute Eosinophils 0.4, Absolute Basophils 0.1 Assessment/Plan Assessment: 86 year old patient with past medical history of Alzheimer's dementia, hyperthyroidism w/ multiple thyroid nodules, hypertension, anxiety, diabetes type 2 who was brought to the ER by EMS for 3 days of worsening altered mental status and progressive weakness, including urinary incontinence and loose stool. Problem List/Plan: TRE due to dehydration -Admit to general medicine floor -Vitals and I/O monitoring per protocol -stopped NS infusions as patient is tolerating diet UTI -CEFTRIAXONE STOPPED, bactrim started and continued -Switched to Keflex for discharge -urine culture positive for gram negative rods; repeat culture negative -repeat urine cultures, as white count continues to rise even on abx -wbc down to 11 today (Suspected) Hypotonic Hyponatremia -correct Na<7meq/24 hours; currently at 134 from admission 123 -Anion gap corrected -nephrology recs appreciated; patient will not use thiazide diuretics going forward Weakness -pt below baseline functioning -PT consult suggested short term rehab PMH of [place] dementia, microcytic anemia, hyperthyroidism, hypertension, anxiety, diabetes type 2 -hold lisinopril/hctz and oral hypoglycemics -continue other home medicines -simethecone PRN for abdominal gas pain, per family (chronic problem, never addressed before) -pain per pathway DVT prophylaxis: Subcu heparin and ALPS Complete carbohydrate 1 Patient is DNR/DNI Problem List: 1. UTI (urinary tract infection) 2. Hyponatremia syndrome 3. Leukocytosis Pain Ratin Pain Location: "stomach" Pain Goal: pain free Pain Plan: Simethicone and Tylenol Tomorrow's Labs & Rationales: None planned, plan to discharge
[2017-09-13 09:21] LABS: ABSOLUTE BASOPHIL COUNT 0.1 /CUMM (0.0-0.2); ABSOLUTE EOSINOPHIL COUNT 0.4 /CUMM (0.0-0.7); ABSOLUTE GRANULOCYTE CT 5.9 /CUMM (1.4-6.5); ABSOLUTE LYMPH COUNT 4.3 /CUMM (1.2-3.4); ABSOLUTE MONOCYTE COUNT 0.6 /CUMM (0.10-0.60); BASOPHIL % 0.5 % (0.0-2.0); EOSINOPHIL % 3.6 % (0-5); HEMATOCRIT 30.4 % (37-47); MEAN CORPUSCULAR HGB 24.5 PG (27.0-31.0); MEAN CORPUSCULAR HGB CONC 32.5 G/DL (33.0-37.0); MEAN CORPUSCULAR VOLUME 75.6 FL (81.0-99.0); MEAN PLATELET VOLUME 6.8 FL (7.4-10.4); PLATELET COUNT 319 /CUMM (130-400); RBC DISTRIBUTION WIDTH 15.9 % (11.5-14.5); RED BLOOD CELL CT 4.02 /CUMM (4.20-5.40); WHITE BLOOD CELL COUNT 11.2 /CUMM (4.8-10.8)
[2017-09-13 10:35] LABS: GRANULOCYTE % 52.4 % (42.2-75.2)
--- NOTE | 2017-09-13 11:06 | PN- Att Addend ---
Attending Addendum Attending Brief Note Laying in bed, daughter at the bedside. Complaining of her usual epigastric discomfort. Vital signs are stable no fever. No changes on physical examination. White count is down to 11,200. Will have a physical therapy evaluation and then start disposition for short-term rehab when bed is available. Continue on the antibiotic by mouth for 5 more days. Intake & Output 09/13 1600 09/13 0400 09/12 1600 09/12 0400 09/11 1600 09/11 0400 Intake Total 100 100 550 760 170 Output Total 300 Balance 100 100 550 460 170 Intake, IV 10 10 Intake, Oral 100 100 550 750 160 Number 2 Bowel Movements Output, Urine 300 Current Medications Sig/Shaquille Start time Last Medication Dose Route Stop Time Status Admin Acetaminophen 650 MG Q6P PRN 09/07 1500 AC 09/13 PO 0539 Artificial Tears 2 GTT TID 09/08 1547 AC 09/13 OPH 0823 Aspirin Buffered 81 MG DAILY 09/08 09 AC 09/13 PO 0823 Cholecalciferol 1,000 IU DAILY 09/08 09 AC 09/13 PO 0823 Heparin Sodium 5,000 UNIT Q8 09/07 2200 AC 09/13 (Porcine) SC 0540 Insulin Aspart 0 TIDAC 09/07 1700 AC 09/13 SC 0824 Lactobacillus 1 CAP DAILY 09/08 09 AC 09/13 Acidophilus PO 0824 Lorazepam 0.5 MG BID 09/07 2100 AC 09/13 PO 09/14 2059 0824 Methimazole 5 MG DAILY 09/08 09 AC 09/13 PO 0824 Mirtazapine 15 MG QPM 09/07 2100 AC 09/12 PO 2144 Montelukast Sodium 10 MG DAILY 09/08 0900 AC 09/13 PO 0824 Nystatin 1 FARAZ BID PRN 09/11 1615 AC TOP Nystatin 1 FARAZ Q6-PRN PRN 09/10 2245 AC 09/11 TOP 1011 Omeprazole 40 MG DAILY AC 09/08 0700 AC 09/13 PO 0539 Simethicone 40 MG Q6P PRN 09/07 1545 AC 09/13 PO 0715 Trimethoprim/ 1 TAB BID 09/10 1330 AC 09/13 Sulfamethoxazole PO 0823 Microbiology Date/Time Procedure - Status Source Growth 09/11 1699 Urine Culture - COMP URINE ROUT Microbiology 09/11 1699 URINE ROUT: Urine Culture - COMP Vital Signs Date Time Temp Pulse Resp B/P B/P Pulse O2 O2 Flow FiO2 Mean Ox Delivery Rate 09/13 0711 98.3 97 20 150/78 95 09/12 2139 97.5 105 18 130/74 95 Room Air 09/12 1454 98.9 109 18 132/74 96 Room Air
[2017-09-13 14:29] VITALS: BP 156/72
[2017-09-13] MEDS ORDERED: SULFAMETHOXAZO1 EAC1 PO (15:24)
[2017-09-13 17:52] VITALS: BP 156/72
== END 2017-09-13 18:51 | DRG 690 ==
LOC: ERH 11:09 → 2NB 14:14 → ERHI 14:14 → ENRESERV 14:33 → ENTRNSPT 16:04 → EDTRNSPT 16:13 → EDTRNSPTSTS 16:13 → 2NB 16:25 → CMPTRNSPT 16:37 → ENPENDDIS 09-13 16:33 → 2NB 09-13 18:51
PROVIDERS: General Practice; Physician Assistant
DX: N39.0 Urinary tract infection, site not specified (principal); E87.1 Hypo-osmolality and hyponatremia; N17.9 Acute kidney failure, unspecified; I10 Essential (primary) hypertension; E05.90 Thyrotoxicosis, unspecified without thyrotoxic crisis or storm; G30.9 Alzheimer's disease, unspecified; F02.80 Dementia in other diseases classified elsewhere, unspecified severity, without behavioral disturbance, psychotic disturbance, mood disturbance, and anxiety; F41.9 Anxiety disorder, unspecified; E86.0 Dehydration; K21.9 Gastro-esophageal reflux disease without esophagitis; E11.9 Type 2 diabetes mellitus without complications; Z79.84 Long term (current) use of oral hypoglycemic drugs; D50.9 Iron deficiency anemia, unspecified; Z66 Do not resuscitate; R53.1 Weakness; R19.7 Diarrhea, unspecified; T50.2X5A Adverse effect of carbonic-anhydrase inhibitors, benzothiadiazides and other diuretics, initial encounter; B96.20 Unspecified Escherichia coli [E. coli] as the cause of diseases classified elsewhere; R32 Unspecified urinary incontinence
CPT/HCPCS: 2NBSP; 84133; 84300; 36415; 36592; 74176; 81001; 82436; 82570; 87086; 93005; 93010; 96374; 97116-GO; 97161-GP; 97530-GO; J0696; J1644

== ENCOUNTER 2017-10-06 11:38 | Inpatient (IN) | payer OTHER ==
[~2017-10-06] VITALS: Ht 157.5 cm; Wt 69.9 kg
[~2017-10-06 11:38] MED LIST changes: +CEPHALEXIN500 M3 PO; +JANUMET 50-1,01 EACH PO; +JANUMET 50-5001 EACH PO; +SULFAMETHOXAZO1 EAC1 PO
--- NOTE | 2017-10-06 12:17 | ED GENERAL ADULT ---
History of Present Illness General Chief Complaint: General Adult Stated Complaint: SENT IN FOR ABNORMAL LABS Source: patient, family, old records, EMS Exam Limitations: dementia Vital Signs & Intake/Output Vital Signs & Intake/Output Vital Signs Date Time Temp Pulse Resp B/P B/P Pulse O2 O2 Flow FiO2 Mean Ox Delivery Rate 10/06 1430 98.3 119 16 170/90 96 Room Air 10/06 1300 98.3 120 16 170/90 97 Room Air 10/06 1145 98.6 140 18 192/110 96 Allergies Coded Allergies: No Known Allergies (09/07/17) Reconcile Medications Aspirin (Ecotrin*) 81 MG TABLET.DR 1 TAB PO DAILY HEART HEALTH (Reported) Bacillus Coagulans/Inulin (Probiotic Formula Capsule) 1 BILLION CELL-250 MG CAPSULE 1 CAP PO DAILY GI (Reported) Cholecalciferol (Vitamin D3) 1,000 UNIT TABLET 1 TAB PO DAILY VITAMIN SUPPORT (Reported) Lisinopril 2.5 MG TABLET 1 TAB PO DAILY HEART (Reported) Lorazepam (Ativan) 0.5 MG TABLET 1 TAB PO BID ANXIETY (Reported) Methimazole 5 MG TABLET 1 TAB PO DAILY THYROID (Reported) Mirtazapine 15 MG TABLET 1 TAB PO QPM SLEEP (Reported) Montelukast Sodium (Singulair) 10 MG TABLET 1 TAB PO DAILY ALLERGIES ( Reported) Pantoprazole Sodium (Protonix) 40 MG TABLET.DR 1 TAB PO DAILY GI (Reported) Sitagliptin Phos/Metformin HCl (Janumet 50-500 MG Tablet) 50 MG-500 MG TABLET 2 TAB PO DAILY DIABETES (Reported) Sitagliptin Phos/Metformin HCl (Janumet 50-1,000 MG Tablet) 50 MG-1,000 MG TABLET 1 TAB PO QPM DIABETES (Reported) Sulfamethoxazole/Trimethoprim (Sulfamethoxazole-Tmp Ds Tablet) 800 MG-160 MG TABLET 1 TAB PO BID UTI Triage Note: PT HERE FOR ABNORMAL LABS PER [facility] AT [facility] PT K+ 2.6, WBC 17.3 PT CONT WITH DIARRHEA WITH HX OF C-DIFF PER CHRISTOPHER GALLEGOS PT IS TACHY AT TIMES. Triage Nurses Notes Reviewed? yes HPI: Patient had recent admission to the hospital for urosepsis. Patient should glucose was complicated by Clostridium difficile. The patient is currently at short-term rehabilitation get her strength back. Patient states that she is occasionally still having diarrhea however her stool is more formed than it has been. Patient still feels very weak and fatigued. Patient has been having outpatient blood work and this morning it came back that her potassium was down and her white blood cell count was elevated. Patient had been running a white count of 11,000 and it went up to 17,000. Patient denies any coughing. There are no fevers or chills. Past History Travel History Traveled to [place] past 21 day No Medical History Any Pertinent Medical History? see below for history Neurological: dementia EENT: allergies Cardiovascular: hypertension Respiratory: NONE Gastrointestinal: GERD Hepatic: NONE Renal: urinary incontinence Musculoskeletal: NONE Psychiatric: anxiety Endocrine: diabetes, hyperthyroidism Blood Disorders: NONE Cancer(s): SKIN CANCER TO NOSE History of MRSA: No History of VRE: No History of CDIFF: No Surgical History Surgical History: non-contributory, hysterectomy Psychosocial History Who do you live with Spouse Services at Home None What is your primary language Czech Tobacco Use: Never used ETOH Use: denies use Illicit Drug Use: denies illicit drug use Family History Family History, If Any: Relation not specified for: *No pertinent family history Hx Contributory? No Review of Systems Review of Systems Constitutional: Reports: see HPI, weakness. GI: Reports: see HPI. Physical Exam Physical Exam General Appearance: well developed/nourished, awake Head: atraumatic, normal appearance Eyes: Bilateral: PERRL, EOMI. Ears, Nose, Throat: normal pharynx, normal ENT inspection, dRY MUCOUS MEMBRANES Neck: normal inspection, supple, full range of motion Respiratory: normal breath sounds, chest non-tender, no respiratory distress, lungs clear Cardiovascular: regular rate/rhythm, normal peripheral pulses Gastrointestinal: normal bowel sounds, soft, non-tender, no organomegaly Back: normal inspection, normal range of motion Extremities: normal inspection, normal capillary refill, normal range of motion, no edema Neurologic/Psych: no motor/sensory deficits, awake, alert, oriented x 3, normal mood/affect Skin: intact, normal color, warm/dry Core Measures ACS in differential dx? No CVA/TIA Diagnosis: No Sepsis Present: No Sepsis Focused Exam Completed? No Progress Differential Diagnoses I considered the following diagnoses in my evaluation of the patient: [UTI, pneumonia, electrolyte abnormality, CHF] Plan of Care: Orders Procedure Date/time Status LACTIC ACID 10/06 1517 Active EKG 10/06 1224 Active BLOOD CULTURE 10/06 1217 Active URINALYSIS 10/06 1217 Active LACTIC ACID 10/06 1217 Complete COMPREHENSIVE METABOLIC PANEL 10/06 121 Complete CBC WITHOUT DIFFERENTIAL 10/06 1216 Complete Current Medications Sig/Shaquille Start time Last Medication Dose Stop Time Status Admin Sodium Chloride 1,000 ML BOLUS ONE 10/06 1500 UNVr (Normal Saline 0.9%) 10/06 1559 Laboratory Tests 10/06/17 1240: Anion Gap 9, Estimated GFR > 60, BUN/Creatinine Ratio 11.4, Glucose 139 H, Lactic Acid 1.4, Calcium 7.6 L, Total Bilirubin 0.4, AST 12 L, ALT 27, Alkaline Phosphatase 138 H, Total Protein 6.2 L, Albumin 3.2 L, Globulin 3.0, Albumin/Globulin Ratio 1.1, CBC w Diff MAN DIFF ORDERED, RBC 4.41, MCV 76.2 L, MCH 24.7 L, MCHC 32.5 L, RDW 16.6 H, MPV 6.7 L, Gran % 70.4, Lymphocytes % 23.6, Monocytes % 4.5, Eosinophils % 1.1, Basophils % 0.4, Absolute Granulocytes 12.3 H, Segmented Neutrophils 61, Band Neutrophils 2, Absolute Lymphocytes 4.1 H, Lymphocytes 29, Monocytes 6, Absolute Monocytes 0.8 H, Eosinophils 2, Absolute Eosinophils 0.2, Absolute Basophils 0.1, Platelet Estimate VERIFIED BY SMEAR, Hypochromic-Microcytic 1+, Anisocytosis 1+, Microcytic Cells 1+ Microbiology 10/06 1300 BLOOD: Blood Culture - RECD 10/06 1240 BLOOD: Blood Culture - RECD Diagnostic Imaging: Viewed by Me: Radiology Read. Discussed w/RAD: Radiology Read. CXR Impression: PATIENT: RADHA BELLA PRESENT AGE: 86 PATIENT ACCOUNT NO: [id number] : [birth year] LOCATION: [facility] ORDERING PHYSICIAN: Dennis Connell MD SERVICE DATE: 10/06/17-1216 EXAM TYPE: RAD - XRY-PORTABLE CHEST XRAY EXAMINATION: XR PORTABLE CHEST CLINICAL INFORMATION: Leukocytosis. Assess for pneumonia. COMPARISON: Chest x-ray 08/30/2015. TECHNIQUE: Portable frontal 70 degrees semiupright view of the chest was obtained. FINDINGS: The lung lin are moderately well-expanded bilaterally. Mildly increased interstitial markings are redemonstrated in the lower zones. There is no focal consolidation. The cardiac silhouette is normal. The aortic arch is unfolded, and calcified. There is rightward deviation of the upper trachea, corresponding to the findings on the scan persistent with sequelae of the enlarged left lobe of thyroid gland. There are no pleural effusions or pneumothorax. The central pulmonary vasculature is normal. The hilar regions appear normal. There are no acute osseous findings. There are monitor leads overlying the chest. IMPRESSION: 1. There are no acute cardiopulmonary findings. 2. Rightward deviation of the trachea is consistent with sequelae of enlarged left lobe of the thyroid gland. DICTATED BY: Willie Mendes MD DATE/TIME DICTATED: 10/06/171334 GUNNER'S MATE G:JERARDO DATE/TIME TRANSCRIBED:10/06/171334 CONFIDENTIAL, DO NOT COPY WITHOUT APPROPRIATE AUTHORIZATION. <Electronically signed in Other Vendor System> SIGNED BY: Willie Mendes MD 10/06/17 1342 Initial ED EKG: S TACH, NSSTT CHANGES Prior EKG: unchanged Departure Departure Disposition: STILL A PATIENT Condition: Stable Clinical Impression Primary Impression: Leukocytosis Referrals: Jhon Buckley MD (PCP/Family) Departure Forms: Customer Survey General Discharge Information Observation Note Spoke With: Jhon Buckley MD Physician Advisor Notified: DOROTHEA UNLL,DENNIS [address] Patient In: Non-ED OBS Care Area Rationale for Observation: My rational for observation is as follows [IV FLUIDS, FOLLO WUP CULTURES]. Critical Care Note Critical Care Note Critical Care Time: non-applicable
[2017-10-06 13:01] LABS: ABSOLUTE BASOPHIL COUNT 0.1 /CUMM (0.0-0.2); ABSOLUTE EOSINOPHIL COUNT 0.2 /CUMM (0.0-0.7); ABSOLUTE GRANULOCYTE CT 12.3 /CUMM (1.4-6.5); ABSOLUTE LYMPH COUNT 4.1 /CUMM (1.2-3.4); ABSOLUTE MONOCYTE COUNT 0.8 /CUMM (0.10-0.60); BASOPHIL % 0.4 % (0.0-2.0); EOSINOPHIL % 1.1 % (0-5); GRANULOCYTE % 70.4 % (42.2-75.2); HEMATOCRIT 33.6 % (37-47); MEAN CORPUSCULAR HGB 24.7 PG (27.0-31.0); MEAN CORPUSCULAR HGB CONC 32.5 G/DL (33.0-37.0); MEAN CORPUSCULAR VOLUME 76.2 FL (81.0-99.0); MEAN PLATELET VOLUME 6.7 FL (7.4-10.4); PLATELET COUNT 241 /CUMM (130-400); RBC DISTRIBUTION WIDTH 16.6 % (11.5-14.5); RED BLOOD CELL CT 4.41 /CUMM (4.20-5.40); WHITE BLOOD CELL COUNT 17.5 /CUMM (4.8-10.8)
--- NOTE | 2017-10-06 13:42 | RADIOLOGY REPORT ---
EXAMINATION: XR PORTABLE CHEST CLINICAL INFORMATION: Leukocytosis. Assess for pneumonia. COMPARISON: Chest x-ray 08/30/2015. TECHNIQUE: Portable frontal 70 degrees semiupright view of the chest was obtained. FINDINGS: The lung lin are moderately well-expanded bilaterally. Mildly increased interstitial markings are redemonstrated in the lower zones. There is no focal consolidation. The cardiac silhouette is normal. The aortic arch is unfolded, and calcified. There is rightward deviation of the upper trachea, corresponding to the findings on the scan persistent with sequelae of the enlarged left lobe of thyroid gland. There are no pleural effusions or pneumothorax. The central pulmonary vasculature is normal. The hilar regions appear normal. There are no acute osseous findings. There are monitor leads overlying the chest. IMPRESSION: 1. There are no acute cardiopulmonary findings. 2. Rightward deviation of the trachea is consistent with sequelae of enlarged left lobe of the thyroid gland.
--- NOTE | 2017-10-06 15:57 | History & Physical ---
Kp Lanier 10/06/17 1557: General Information and HPI MD Statement: I have seen and personally examined RADHA ALVARADO and documented this H& P. The patient is a 86 year old F who presented with a patient stated chief complaint of []. Source of Information: family Exam Limitations: dementia History of Present Illness: Ms. Alvarado is a 86yo F w/ PMH of baseline [place] dementia, hyperthyrodism w/ multiple thyroid nodules, HTN, Anxiety, T2DM who was recently discharged from [facility] 22 days ago on 09/13/2017 after being treated for about 6 days for a UTI. She was discharged to a short-term rehab but now presents back to the ED for concerns of worsening leukocytosis and hypokalemia. Due to patient's dementia she is unable to provide an accurate history. Most of it was obtained from speaking with both of her daughters were with her at bedside in the ED. According to the daughters, their mother has been being treated for a C. difficile infection by the visiting UNIX ARCHITECT at the facility. She started the patient on a vancomycin taper starting at 4 doses a day at 250 mg. Then on the 10th day (last Wednesday10/03/2017) she dropped it to 3 doses a day. Today 10/06/2017 would be the 13th day but she actually missed a dose yesterday because the facility ran out of vancomycin. They report that her mother's diarrhea has been improving in terms of less episodes per day and by how the stool is forming. They described it as still being loose but more formed than before. The daughters were unaware of the medical treatment, and this morning they were given a call from the facility saying that the patient was not feeling well and saying that her white count and potassium levels were off. Patient nods when asked if she has abdominal pain but according to her daughters that is a chronic issue. The daughters also described the patient as having increased urinary frequency and say that the patient has been also complaining about dysuria and that is a new symptom for her. They also report that their mother has had poor p.o. intake recently. They attribute that more to the quality of the food given at the rehab facility, but admit that her appetite does not seem to improve much even when they bring food from home. They deny that their mother had any symptoms of fevers, chills, shortness of breath, cough or vomiting. They deny any sick contacts other than other members of the facility which they do not know about. Allergies/Medications Allergies: Coded Allergies: No Known Allergies (09/07/17) Home Med list Aspirin (Ecotrin*) 81 MG TABLET.DR 1 TAB PO DAILY HEART HEALTH (Reported) Bacillus Coagulans/Inulin (Probiotic Formula Capsule) 1 BILLION CELL-250 MG CAPSULE 1 CAP PO DAILY GI (Reported) Cholecalciferol (Vitamin D3) 1,000 UNIT TABLET 1 TAB PO DAILY VITAMIN SUPPORT (Reported) Lisinopril 2.5 MG TABLET 1 TAB PO DAILY HEART (Reported) Lorazepam (Ativan) 0.5 MG TABLET 1 TAB PO BID ANXIETY (Reported) Methimazole 5 MG TABLET 1 TAB PO DAILY THYROID (Reported) Mirtazapine 15 MG TABLET 1 TAB PO QPM SLEEP (Reported) Montelukast Sodium (Singulair) 10 MG TABLET 1 TAB PO DAILY ALLERGIES ( Reported) Pantoprazole Sodium (Protonix) 40 MG TABLET.DR 1 TAB PO DAILY GI (Reported) Sitagliptin Phos/Metformin HCl (Janumet 50-500 MG Tablet) 50 MG-500 MG TABLET 2 TAB PO DAILY DIABETES (Reported) Sitagliptin Phos/Metformin HCl (Janumet 50-1,000 MG Tablet) 50 MG-1,000 MG TABLET 1 TAB PO QPM DIABETES (Reported) Sulfamethoxazole/Trimethoprim (Sulfamethoxazole-Tmp Ds Tablet) 800 MG-160 MG TABLET 1 TAB PO BID UTI Past History Travel History Traveled to [place] past 21 day No Medical History Neurological: dementia EENT: allergies Cardiovascular: hypertension Respiratory: NONE Gastrointestinal: GERD Hepatic: NONE Renal: urinary incontinence Musculoskeletal: NONE Psychiatric: anxiety Endocrine: diabetes, hyperthyroidism Blood Disorders: NONE Cancer(s): SKIN CANCER TO NOSE History of MRSA: No History of VRE: No History of CDIFF: No Surgical History Surgical History: non-contributory, hysterectomy Past Family/Social History Family History Relations & Conditions if any Relation not specified for: *No pertinent family history Psychosocial History Who Do You Live With? spouse Services at Home: None Primary Language: Spanish ETOH Use: denies use Illicit Drug Use: denies illicit drug use Living Will? yes Power of Engineering Administrator/HCP? 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 Ambulation: walker (currently nonambulatory) IADLs Needs Assist: shopping, housework, finances, food prep, telephone, transportation, medication admin. Review of Systems Review of Systems Constitutional: Reports: see HPI. Exam & Diagnostic Data Last 24 Hrs of Vital Signs/I&O Vital Signs Date Time Temp Pulse Resp B/P B/P Pulse O2 O2 Flow FiO2 Mean Ox Delivery Rate 10/06 1820 99.1 68 20 150/86 95 Room Air 10/06 1626 96 Room Air 10/06 1623 98.2 108 20 167/91 96 Room Air 10/06 1430 98.3 119 16 170/90 96 Room Air 10/06 1300 98.3 120 16 170/90 97 Room Air 10/06 1145 98.6 140 18 192/110 96 Intake & Output 10/06 1600 10/06 0800 10/06 0000 Intake Total Output Total 300 Balance -300 Output, Urine 300 Patient 175 lb Weight Weight Estimated Measurement Method Physical Exam General Appearance Alert, No Acute Distress Skin Temp/Moisture Exam: Warm/Dry Sepsis Skin Exam (color): Normal for Ethnicity HEENT Atraumatic, EOMI Neck Supple Cardiovascular Normal S1, Normal S2 Lungs Clear to Auscultation, Normal Air Movement Abdomen Normal Bowel Sounds, Soft, Diffuse Tenderness Neurological Sensation Intact, Speech intact Extremities No Cyanosis, Normal Pulses, BL LE Trace edema Assessment/Plan Assessment: Ms. Alvarado is a 86yo F w/ PMH of baseline [place] dementia, hyperthyrodism w/ multiple thyroid nodules, HTN, Anxiety, T2DM who was recently discharged from [facility] 22 days ago on 09/13/2017 after being treated for about 6 days for a UTI. She was discharged to a short-term rehab but now presents back to the ED for concerns of worsening leukocytosis and hypokalemia. BP: 192/110. WBC:17.5, K 2.8. Urinalysis pending. CXR negative for any acute pathology. Problem list: # Leukocytosis most likely 2/2 UTI and C Difficle Infection # Hypokalemia - Observe on telemetry for 24-48 hours - 6 week Vanco taper continued - Repeat C. difficile Tox and Ag - Blood cx and urine cx - CBC and BEP daily - Start IV Rocephin for UTI - Replete K based on K levels - Hold home DM regimen and start NovoLog SS - Continue home meds DVT prophylaxis Full Code As Ranked By This Provider Problem List: 1. UTI (urinary tract infection) Core Measures/Misc (11/01) Acute Coronary Syndrome ACS Diagnosis: No Congestive Heart Failure Congestive Heart Failure Diagnosis No Cerebrovascular Accident CVA/TIA Diagnosis: No VTE (View Protocol) VTE Risk Factors Acute Medical Illness No Mechanical VTE Prophylaxis d/t N/A MechProphylax Ordered No VTE Pharm Prophylaxis d/t NA PharmProphylax ordered Sepsis (View protocol) Sepsis Present: No If YES complete Sepsis Event Note If YES complete Sepsis Event Note Minerva NULL,Sandy 10/06/17 1633: Core Measures/Misc (11/01) Sepsis (View protocol) If YES complete Sepsis Event Note If YES complete Sepsis Event Note Resident Review Statement Resident Statement: examined this patient, discussed with leadership program internship, agreed with leadership program internship, discussed with family, reviewed EMR data (avail), discussed with nursing , reviewed images Other Findings: Ms. Alvarado is a 86yo F w/ PMH of baseline [place] dementia, hyperthyrodism w/ multiple thyroid nodules, HTN, Anxiety, T2DM who was recently discharged from [facility] after being treated for UTI and sent to [facility], now sent from the rehab for concerns of worsening leukocytosis and hyperkalemia on recent labs. Patient has history of Alzheimer's dementia, history obtained from the daughters at bedside. According to them, patient was diagnosed with C. difficile at rehab and is currently on vancomycin taper, already received vancomycin 250 mg every 6 hours for 10 days and currently on vancomycin 3 times daily, but her diarrhea is improving and her stools are starting to get formed. Denies any fever/chills. Patient has chronic abdominal pain, which has been extensively worked up in the past. Also endorses decreased p.o. intake. The daughter got a call this morning from the rehab saying that the patient is not feeling well and her labs leukocytosis 17 and potassium of 5. Denies any chest pain, shortness of breath, cough, sputum production or any sick contacts Patient also having urinary frequency(6 episodes while in the ER) and also have dysuria. Vitals on admission were stable except for a blood pressure of 192/110. Urinalysis pending. Labs were significant for a WBC count of 17.5, potassium 2.8, blood glucose 139 and normal lactic acid. Chest x-ray was negative for any acute pathology. Problem list; 1. Leukocytosis; could be secondary to UTI or persistent C. difficile even though the diarrhea is resolving. 2. Hypokalemia 3. Other chronic medical conditions -Observe the patient on telemetry floor for 24-48 hours. -Continue vancomycin for C. difficile. Will repeat C. difficile. -Start the patient on IV ceftriaxone for presumed UTI given urinary symptoms and leukocytosis. -Send blood cultures and urine culture. - Repeat CBC in am. -Patient received 2 L of normal saline in the ER, will hold off on further IV fluids. -Replete potassium and repeat K level later in the day, repelete accordingly. -Hold Januvia and start the patient on NovoLog sliding scale. -Resume lisinopril for blood pressure(stopped on previous admission). -Continue home medications. DVT prophylaxis; alps and subcu Lovenox Patient is full code
[2017-10-06 18:20] VITALS: BP 150/86
--- NOTE | 2017-10-06 18:24 | PN- Att Addend ---
Attending Addendum Attending Brief Note 86-year-old white female staying at the short-term rehabilitation after admission for sepsis of urological origen after had diarrhea and treated for C. Dff.,the stools are a little more formed still loose at times still weak today had blood work showed low potassium and higher white count was send to the ER for evaluation the urine still looks dirty. will panculture again, have ID see the patient regarding antibiotic coverage. Current Medications Sig/Shaquille Start time Last Medication Dose Route Stop Time Status Admin Acetaminophen 650 MG Q6PRN PRN 10/06 1600 AC PO Aspirin Buffered 81 MG DAILY 10/07 0900 AC PO Ceftriaxone Sodium 1,000 MG 1800 10/06 1800 AC IV Enoxaparin Sodium 40 MG DAILY 10/06 1601 AC SC Insulin Aspart 0 TIDAC 10/06 1700 AC SC Lactobacillus 1 CAP DAILY 10/06 1604 AC Acidophilus PO Lisinopril 2.5 MG DAILY 10/06 1604 AC PO Lorazepam 0.5 MG BID 10/06 2100 AC PO 10/13 2058 Methimazole 5 MG DAILY 10/07 0900 AC PO Mirtazapine 15 MG QPM 10/06 2100 AC PO Montelukast Sodium 10 MG DAILY 10/07 0900 AC PO Omeprazole 40 MG DAILY AC 10/06 1605 AC PO Potassium Chloride 40 MEQ ONCE ONE 10/06 1700 DC PO 10/06 1701 Potassium Chloride 0 .STK-MED ONE 10/06 1420 DC PO Potassium Chloride 0 .STK-MED ONE 10/06 1417 DC PO Potassium Chloride 0 .STK-MED ONE 10/06 1417 DC IV Potassium Chloride 40 MEQ ONCE ONE 10/06 1330 DC 10/06 PO 10/06 1331 1400 Potassium Chloride 10 MEQ ONCE ONE 10/06 1330 DC 10/06 IV 10/06 1331 1400 Potassium Chloride 10 MEQ ONCE ONE 10/06 1330 DC IV 10/06 1331 Sodium Chloride 1,000 ML BOLUS ONE 10/06 1500 DC 10/06 IV 10/06 1559 1644 Sodium Chloride 1,000 ML BOLUS ONE 10/06 1230 DC 10/06 IV 10/06 1329 1240 Vancomycin HCl 250 MG Q6 10/06 1800 AC PO Laboratory Tests 10/06/17 1524: Urine Color YEL, Urine Clarity HAZY H, Urine pH 6.0, Ur Specific [place] 1.015, Urine Protein NEG, Urine Ketones NEG, Urine Nitrite NEG, Urine Bilirubin NEG, Urine Urobilinogen 0.2, Ur Leukocyte Esterase LARGE H, Ur Microscopic SEDIMENT EXAMINED, Urine RBC 5-10 H, Urine WBC 15-25 H, Ur Epithelial Cells FEW, Urine Bacteria FEW H, Hyaline Casts FEW H, Urine Hemoglobin MOD H, Urine Glucose NEG 10/06/17 1240: Anion Gap 9, Estimated GFR > 60, BUN/Creatinine Ratio 11.4, Glucose 139 H, Lactic Acid 1.4, Calcium 7.6 L, Total Bilirubin 0.4, AST 12 L, ALT 27, Alkaline Phosphatase 138 H, Total Protein 6.2 L, Albumin 3.2 L, Globulin 3.0, Albumin/Globulin Ratio 1.1, CBC w Diff MAN DIFF ORDERED, RBC 4.41, MCV 76.2 L, MCH 24.7 L, MCHC 32.5 L, RDW 16.6 H, MPV 6.7 L, Gran % 70.4, Lymphocytes % 23.6, Monocytes % 4.5, Eosinophils % 1.1, Basophils % 0.4, Absolute Granulocytes 12.3 H, Segmented Neutrophils 61, Band Neutrophils 2, Absolute Lymphocytes 4.1 H, Lymphocytes 29, Monocytes 6, Absolute Monocytes 0.8 H, Eosinophils 2, Absolute Eosinophils 0.2, Absolute Basophils 0.1, Platelet Estimate VERIFIED BY SMEAR, Hypochromic-Microcytic 1+, Anisocytosis 1+, Microcytic Cells 1+ Microbiology Date/Time Procedure - Status Source Growth 10/06 1630 Clostridium difficile Toxin A & B - COLB STOOL 10/06 1609 Urine Culture - COLB URINE ROUT 10/06 1300 Blood Culture - RECD BLOOD 10/06 1240 Blood Culture - RECD BLOOD Vital Signs Date Time Temp Pulse Resp B/P B/P Pulse O2 O2 Flow FiO2 Mean Ox Delivery Rate 10/06 1820 99.1 68 20 150/86 95 Room Air 10/06 1626 96 Room Air 10/06 1623 98.2 108 20 167/91 96 Room Air 10/06 1430 98.3 119 16 170/90 96 Room Air 10/06 1300 98.3 120 16 170/90 97 Room Air 10/06 1145 98.6 140 18 192/110 96
[2017-10-06 21:09] VITALS: BP 160/80
[2017-10-07 06:36] VITALS: BP 150/78
--- NOTE | 2017-10-07 07:09 | PN- Housestaff ---
Subjective Follow-up For: UTI C difficile Subjective: Pt resting comfortably in bed. Unable to provide accurate hx. Per nursing no events overnight. No events on telemetry. Review of Systems Constitutional: Reports: see HPI. Objective Last 24 Hrs of Vital Signs/I&O Vital Signs Date Time Temp Pulse Resp B/P B/P Pulse O2 O2 Flow FiO2 Mean Ox Delivery Rate 10/07 2205 99.0 102 24 126/80 95 10/07 1630 Room Air 10/07 1626 Room Air 10/07 1509 20 138/70 10/07 1458 98.9 104 95 Room Air 10/07 1106 96 160/84 10/07 0636 98.2 106 20 150/78 96 Intake & Output 10/08 0800 10/08 0000 10/07 1600 Intake Total 250 480 Output Total Balance 250 480 Intake, Oral 250 480 Number 1 2 Bowel Movements Patient 156 lb Weight Physical Exam General Appearance: Alert, Cooperative, No Acute Distress Skin Temp/Moisture Exam: Warm/Dry HEENT: Atraumatic, EOMI Cardiovascular: Normal S1, Normal S2 Lungs: decreased breath sounds Abdomen: Normal Bowel Sounds, Soft, No Tenderness Extremities: BL LE Edema Current Medications: Current Medications Sig/Shaquille Start time Last Medication Dose Route Stop Time Status Admin Acetaminophen 650 MG Q6PRN PRN 10/06 1600 AC PO Aspirin Buffered 81 MG DAILY 10/07 0900 AC 10/07 PO 1100 Ceftriaxone Sodium 1,000 MG 1800 10/06 1800 DC 10/06 IV 1923 Enoxaparin Sodium 40 MG DAILY 10/06 1601 DC 10/07 SC 1100 Heparin Sodium 25,000 UNIT Q24H 10/07 1945 AC 10/07 (Porcine) IV 2130 Sodium Chloride 500 ML Insulin Aspart 0 TIDAC 10/06 1700 AC SC Lactobacillus 1 CAP DAILY 10/06 1604 AC 10/07 Acidophilus PO 1100 Lisinopril 2.5 MG DAILY 10/06 1604 AC 10/07 PO 1106 Lorazepam 0.5 MG BID 10/06 2100 AC 10/07 PO 10/13 Methimazole 5 MG DAILY 10/07 0900 AC 10/07 PO 1100 Mirtazapine 15 MG QPM 10/06 2100 AC 10/07 PO 1956 Montelukast Sodium 10 MG DAILY 10/07 0900 AC 10/07 PO 1100 Omeprazole 40 MG DAILY AC 10/06 1605 AC 10/06 PO 1853 Patient Medication 1 ED ONE ONE 10/07 1815 DC Teaching ED 10/07 1816 Potassium Chloride 40 MEQ BID 10/07 2237 AC 10/07 PO 10/08 0901 2251 Potassium Chloride 40 MEQ BID 10/07 2100 DC PO 10/08 0901 Vancomycin HCl 250 MG Q6H 10/07 0230 DC 10/07 PO 1100 Last 24 Hrs of Lab/Romie Results Last 24 Hrs of Labs/Mics: Laboratory Tests 10/07/175: Troponin I 0.02, Ngu-[id number]-Fyvqubekoya Pept 956 H 10/07/17 0616: Anion Gap 8, Estimated GFR > 60, BUN/Creatinine Ratio 8.3, CBC w Diff NO MAN DIFF REQ, RBC 3.63 L, MCV 76.7 L, MCH 24.8 L, MCHC 32.3 L, RDW 16.9 H, MPV 7.1 L, Gran % 62.9, Lymphocytes % 28.9, Monocytes % 5.6, Eosinophils % 2.3, Basophils % 0.3, Absolute Granulocytes 10.3 H, Absolute Lymphocytes 4.7 H, Absolute Monocytes 0.9 H, Absolute Eosinophils 0.4, Absolute Basophils 0.1 Microbiology 10/07 1645 STOOL: Clostridium difficile Toxin A & B - RECD Assessment/Plan Assessment: Ms. Alvarado is a 86yo F w/ PMH of baseline [place] dementia, hyperthyrodism w/ multiple thyroid nodules, HTN, Anxiety, T2DM who was recently discharged from [facility] 22 days ago on 09/13/2017 after being treated for about 6 days for a UTI. She was discharged to a short-term rehab but presented back to the ED for concerns of worsening leukocytosis and hypokalemia. Scott list: #C Difficle Infection #Symptomatic UTI #Leukocytosis #Hypokalemia Plan: - ID recs appreciated - Stool for C difficile - CT abd and pelvis for evidence of c diff colitis - DC Cftx and vanco and follow off abx - LE ext doppler for BL swelling/edema Problem List: 1. UTI (urinary tract infection) 2. Leukocytosis Pain Ratin Pain Location: n/a Pain Goal: Remain pain free Pain Plan: per pathway Tomorrow's Labs & Rationales: BEP CBC
[2017-10-07 09:08] LABS: ABSOLUTE BASOPHIL COUNT 0.1 /CUMM (0.0-0.2); ABSOLUTE EOSINOPHIL COUNT 0.4 /CUMM (0.0-0.7); ABSOLUTE GRANULOCYTE CT 10.3 /CUMM (1.4-6.5); ABSOLUTE LYMPH COUNT 4.7 /CUMM (1.2-3.4); ABSOLUTE MONOCYTE COUNT 0.9 /CUMM (0.10-0.60); BASOPHIL % 0.3 % (0.0-2.0); EOSINOPHIL % 2.3 % (0-5); MEAN CORPUSCULAR HGB 24.8 PG (27.0-31.0); MEAN CORPUSCULAR HGB CONC 32.3 G/DL (33.0-37.0); MEAN CORPUSCULAR VOLUME 76.7 FL (81.0-99.0); MEAN PLATELET VOLUME 7.1 FL (7.4-10.4); PLATELET COUNT 205 /CUMM (130-400); RBC DISTRIBUTION WIDTH 16.9 % (11.5-14.5); RED BLOOD CELL CT 3.63 /CUMM (4.20-5.40); WHITE BLOOD CELL COUNT 16.3 /CUMM (4.8-10.8)
[2017-10-07 09:15] LABS: HEMATOCRIT 27.8 % (37-47)
[2017-10-07 09:32] LABS: GRANULOCYTE % 62.9 % (42.2-75.2)
--- NOTE | 2017-10-07 10:21 | PN- Att Addend ---
Attending Addendum Attending Brief Note Patient in bed. Daughters at the bedside. Her usual complaints of some abdominal discomfort., Just had a bowel movement will have nurse check the consistency T-max 99.1. No major changes of physical. White count today 16,300 slightly less. Will have infectious diseases check cultures and give us recommendations regarding antibiotic therapy for UTI and C. difficile All cultures are pending. 24 TOTALS 10/07 0000 10/06 0000 Intake Total 300 Output Total 300 Balance 0 Intake, Oral 300 Output, Urine 300 Patient 175 lb Weight Weight Estimated Measurement Method Current Medications Sig/Shaquille Start time Last Medication Dose Route Stop Time Status Admin Acetaminophen 650 MG Q6PRN PRN 10/06 1600 AC PO Aspirin Buffered 81 MG DAILY 10/07 0900 AC PO Ceftriaxone Sodium 1,000 MG 1800 10/06 1800 AC 10/06 IV 1923 Enoxaparin Sodium 40 MG DAILY 10/06 1601 AC 10/06 SC 1853 Insulin Aspart 0 TIDAC 10/06 1700 AC SC Lactobacillus 1 CAP DAILY 10/06 1604 AC 10/06 Acidophilus PO 1854 Lisinopril 2.5 MG DAILY 10/06 1604 AC 10/06 PO 1856 Lorazepam 0.5 MG BID 10/06 2100 AC 10/06 PO 10/13 Methimazole 5 MG DAILY 10/07 0900 AC PO Mirtazapine 15 MG QPM 10/06 2100 AC 10/06 PO 2153 Montelukast Sodium 10 MG DAILY 10/07 0900 AC PO Omeprazole 40 MG DAILY AC 10/06 1605 AC 10/06 PO 1853 Potassium Chloride 40 MEQ ONCE ONE 10/06 2200 DC PO 10/06 2201 Potassium Chloride 40 MEQ ONCE ONE 10/06 1700 DC 10/06 PO 10/06 1701 2154 Potassium Chloride 0 .STK-MED ONE 10/06 1420 DC PO Potassium Chloride 0 .STK-MED ONE 10/06 1417 DC PO Potassium Chloride 0 .STK-MED ONE 10/06 1417 DC IV Potassium Chloride 40 MEQ ONCE ONE 10/06 1330 DC 10/06 PO 10/06 1331 1400 Potassium Chloride 10 MEQ ONCE ONE 10/06 1330 DC 10/06 IV 10/06 1331 1400 Potassium Chloride 10 MEQ ONCE ONE 10/06 1330 DC 10/06 IV 10/06 1331 1852 Sodium Chloride 1,000 ML BOLUS ONE 10/06 1500 DC 10/06 IV 10/06 1559 1644 Sodium Chloride 1,000 ML BOLUS ONE 10/06 1230 DC 10/06 IV 10/06 1329 1240 Vancomycin HCl 250 MG Q6H 10/07 0230 AC 10/07 PO 0220 Vancomycin HCl 250 MG Q6 10/06 1800 DC 10/06 PO 2037 Laboratory Tests 10/07/17 0616: Anion Gap 8, Estimated GFR > 60, BUN/Creatinine Ratio 8.3, CBC w Diff NO MAN DIFF REQ, RBC 3.63 L, MCV 76.7 L, MCH 24.8 L, MCHC 32.3 L, RDW 16.9 H, MPV 7.1 L, Gran % 62.9, Lymphocytes % 28.9, Monocytes % 5.6, Eosinophils % 2.3, Basophils % 0.3, Absolute Granulocytes 10.3 H, Absolute Lymphocytes 4.7 H, Absolute Monocytes 0.9 H, Absolute Eosinophils 0.4, Absolute Basophils 0.1 10/06/17 1850: 10/06/17 1850: Lactic Acid 1.3 10/06/17 1524: Urine Color YEL, Urine Clarity HAZY H, Urine pH 6.0, Ur Specific Simms 1.015, Urine Protein NEG, Urine Ketones NEG, Urine Nitrite NEG, Urine Bilirubin NEG, Urine Urobilinogen 0.2, Ur Leukocyte Esterase LARGE H, Ur Microscopic SEDIMENT EXAMINED, Urine RBC 5-10 H, Urine WBC 15-25 H, Ur Epithelial Cells FEW, Urine Bacteria FEW H, Hyaline Casts FEW H, Urine Hemoglobin MOD H, Urine Glucose NEG 10/06/17 1240: Anion Gap 9, Estimated GFR > 60, BUN/Creatinine Ratio 11.4, Glucose 139 H, Lactic Acid 1.4, Calcium 7.6 L, Total Bilirubin 0.4, AST 12 L, ALT 27, Alkaline Phosphatase 138 H, Total Protein 6.2 L, Albumin 3.2 L, Globulin 3.0, Albumin/Globulin Ratio 1.1, CBC w Diff MAN DIFF ORDERED, RBC 4.41, MCV 76.2 L, MCH 24.7 L, MCHC 32.5 L, RDW 16.6 H, MPV 6.7 L, Gran % 70.4, Lymphocytes % 23.6, Monocytes % 4.5, Eosinophils % 1.1, Basophils % 0.4, Absolute Granulocytes 12.3 H, Segmented Neutrophils 61, Band Neutrophils 2, Absolute Lymphocytes 4.1 H, Lymphocytes 29, Monocytes 6, Absolute Monocytes 0.8 H, Eosinophils 2, Absolute Eosinophils 0.2, Absolute Basophils 0.1, Platelet Estimate VERIFIED BY SMEAR, Hypochromic-Microcytic 1+, Anisocytosis 1+, Microcytic Cells 1+
[2017-10-07 15:09] VITALS: BP 138/70
--- NOTE | 2017-10-07 16:01 | Cons- Infect Disease ---
General Information and HPI Consulting Request Date of Consult: 10/07/17 Requested By: Jhon Buckley MD Reason for Consult: Rule out urinary tract infection and C. difficile infection Source of Information: patient, family, old records Exam Limitations: dementia History of Present Illness: This is an 86-year-old woman with a history of dementia, hypertension, diabetes and hyperthyroidism, hospitalized 1 month prior to admission with confusion, weakness and urinary and fecal incontinence, found to be afebrile with a leukocytosis and a urine culture positive for E. coli, treated with antibiotics, with a persistent, though decreased, leukocytosis throughout her hospitalization , discharged after 6 days to a rehab facility on Bactrim, to complete a 10 day course of antibiotics, where she apparently developed diarrhea and was diagnosed with C. difficile, treated with p.o. Vancomycin for 10 days with overall improvement in her diarrhea, admitted on October 06 after she was sent to the emergency room because of hypokalemia and a leukocytosis. On admission she was afebrile. Laboratory data revealed a white blood cell count of 17.5, BUN/ creatinine 8 and 0.7, potassium 2.8, alkaline phosphatase 138. Urinalysis 5-10 RBC/15-25 WBCs. Chest x-ray was negative. She was begun on Ceftriaxone and p.o. Vancomycin. She has remained afebrile overnight and has had several soft stools since admission. At present she has no complaints but she is unable to provide a reliable history secondary to her dementia. Allergies/Medications Allergies: Coded Allergies: No Known Allergies (09/07/17) Home Med List: Aspirin (Ecotrin*) 81 MG TABLET.DR 1 TAB PO DAILY HEART HEALTH (Reported) Bacillus Coagulans/Inulin (Probiotic Formula Capsule) 1 BILLION CELL-250 MG CAPSULE 1 CAP PO DAILY GI (Reported) Cholecalciferol (Vitamin D3) 1,000 UNIT TABLET 1 TAB PO DAILY VITAMIN SUPPORT (Reported) Lisinopril 2.5 MG TABLET 1 TAB PO DAILY HEART (Reported) Lorazepam (Ativan) 0.5 MG TABLET 1 TAB PO BID ANXIETY (Reported) Methimazole 5 MG TABLET 1 TAB PO DAILY THYROID (Reported) Mirtazapine 15 MG TABLET 1 TAB PO QPM SLEEP (Reported) Montelukast Sodium (Singulair) 10 MG TABLET 1 TAB PO DAILY ALLERGIES ( Reported) Pantoprazole Sodium (Protonix) 40 MG TABLET. 1 TAB PO DAILY GI (Reported) Sitagliptin Phos/Metformin HCl (Janumet 50-500 MG Tablet) 50 MG-500 MG TABLET 2 TAB PO DAILY DIABETES (Reported) Sitagliptin Phos/Metformin HCl (Janumet 50-1,000 MG Tablet) 50 MG-1,000 MG TABLET 1 TAB PO QPM DIABETES (Reported) Sulfamethoxazole/Trimethoprim (Sulfamethoxazole-Tmp Ds Tablet) 800 MG-160 MG TABLET 1 TAB PO BID UTI Past History Travel History Traveled to [place] past 21 day No Medical History Neurological: dementia EENT: allergies Cardiovascular: hypertension Respiratory: NONE Gastrointestinal: GERD Hepatic: NONE Musculoskeletal: osteoarthritis Psychiatric: anxiety, depression Endocrine: diabetes, hyperthyroidism Blood Disorders: NONE Cancer(s): SKIN CANCER TO NOSE History of MRSA: No History of VRE: No History of CDIFF: Yes Isolation History: Special Contact (Enteric) Surgical History Surgical History: cholecystectomy, hip replacement (bilateral), hysterectomy, ORIF right wrist Family History Relations & Conditions If Any: Relation not specified for: *No pertinent family history Psychosocial History Who Do You Live With? spouse Services at Home: None Primary Language: Kazakh Smoking Status: Never Smoked ETOH Use: denies use Illicit Drug Use: denies illicit drug use Living Will? 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 Ambulation: walker (currently nonambulatory) IADLs Needs Assist: shopping, housework, finances, food prep, telephone, transportation, medication admin. Review of Systems Review of Systems All Other Systems: Reviewed and Negative Exam & Diagnostic Data Last 24 Hrs of Vital Signs/I&O Vital Signs Date Time Temp Pulse Resp B/P B/P Pulse O2 O2 Flow FiO2 Mean Ox Delivery Rate 10/07 1509 20 138/70 10/07 1458 98.9 104 95 Room Air 10/07 1106 96 160/84 10/07 0636 98.2 106 20 150/78 96 10/06 2109 98.8 68 20 160/80 96 Room Air 10/06 1856 130 150/86 10/06 1820 99.1 68 20 150/86 95 Room Air 10/06 1626 96 Room Air 10/06 1623 98.2 108 20 167/91 96 Room Air Intake & Output 10/07 1600 10/07 0800 10/07 0000 Intake Total 110 300 Output Total Balance 110 300 Intake, Oral 110 300 Patient 175 lb Weight Physical Exam Other Physical Findings: She is awake and alert, confused and disoriented, but in no acute distress. She is afebrile. Skin reveals no rash. HEENT exam is negative. Neck is supple with no adenopathy. Lungs are clear. Heart regular rhythm with a 3/6 systolic ejection murmur. Abdomen is soft, mildly tender on palpation over the lower abdomen, with no guarding or rebound, with positive bowel sounds. Back no CVA tenderness. Extremities left leg swelling compared to the right leg. Neuro is without focality. Last 24 Hours of Lab Results: Laboratory Tests 10/07 10/06 10/06 0616 1850 1850 Chemistry Sodium (137 - 145 mmol/L) 135 L Potassium (3.5 - 5.1 mmol/L) 3.3 L 3.1 L Chloride (98 - 107 mmol/L) 100 Carbon Dioxide (22 - 30 mmol/L) 27 Anion Gap (5 - 16) 8 BUN (7 - 17 mg/dL) 5 L Creatinine (0.5 - 1.0 mg/dL) 0.6 Estimated GFR (>60 ml/min) > 60 BUN/Creatinine Ratio (7 - 25 %) 8.3 Lactic Acid (0.7 - 2.1 mmol/L) 1.3 Hematology CBC w Diff NO MAN DIFF REQ WBC (4.8 - 10.8 /CUMM) 16.3 H RBC (4.20 - 5.40 /CUMM) 3.63 L Hgb (12.0 - 16.0 G/DL) 9.0 L Hct (37 - 47 %) 27.8 L MCV (81.0 - 99.0 FL) 76.7 L MCH (27.0 - 31.0 PG) 24.8 L MCHC (33.0 - 37.0 G/DL) 32.3 L RDW (11.5 - 14.5 %) 16.9 H Plt Count (130 - 400 /CUMM) 205 MPV (7.4 - 10.4 FL) 7.1 L Gran % (42.2 - 75.2 %) 62.9 Lymphocytes % (20.5 - 51.1 %) 28.9 Monocytes % (1.7 - 9.3 %) 5.6 Eosinophils % (0 - 5 %) 2.3 Basophils % (0.0 - 2.0 %) 0.3 Absolute Granulocytes (1.4 - 6.5 /CUMM) 10.3 H Absolute Lymphocytes (1.2 - 3.4 /CUMM) 4.7 H Absolute Monocytes (0.10 - 0.60 /CUMM) 0.9 H Absolute Eosinophils (0.0 - 0.7 /CUMM) 0.4 Absolute Basophils (0.0 - 0.2 /CUMM) 0.1 Last 24 Hours of Romie Results: Blood cultures 2 October 06 negative Urine culture October 06 negative Diagnostic Data Recent Imaging Findings: Chest x-ray October 06 negative Assessment/Plan Assessment/Plan Impression: This is an 86-year-old woman with a history of dementia, hospitalized 1 month prior to admission with confusion, weakness and urinary and fecal incontinence, treated for a urinary tract infection and discharged to a rehab facility to complete a 10 day course of antibiotics, diagnosed there with C. difficile and treated with p.o. Vancomycin for 10 days, with overall improvement in her diarrhea, admitted on October 06 because of hypokalemia and leukocytosis, found to be afebrile with a leukocytosis, hypokalemia and pyuria. The etiology of her leukocytosis is not clear. Upon review of her previous labs , including her recent admission, she appears to have had a persistent leukocytosis, raising concern for an underlying process, perhaps noninfectious in etiology. She has been treated adequately for C. difficile, with overall improvement in her diarrhea, though she is clearly at increased risk for a relapse. Having said that, she has had only soft stools since admission and no stool has been sent for C. difficile; therefore do not feel she needs to be treated for this. A Vancomycin taper has been recommended for relapses of C. difficile but not for first episodes; therefore do not feel this is indicated at this time. She does have pyuria, though her urine culture is so far negative, and, though she cannot reliably report symptoms, suspect that her pyuria and, if present, bacteriuria, is asymptomatic. She does have left lower extremity edema and would rule out a DVT. Suggestion: 1. Stool for C. difficile 2. CT of the abdomen and pelvis 3. Dopplers of both lower extremities 4. Further evaluation of her leukocytosis if it persists 5. Discontinue Ceftriaxone and p.o. Vancomycin and follow off antibiotics Consult Acknowledgment - Thank you for your consult request.
--- NOTE | 2017-10-07 18:18 | ULTRASOUND REPORT ---
EXAMINATION: US TRIPLEX OF LOWER EXTREMITIES, BILATERAL CLINICAL INFORMATION: Edema. Swelling. COMPARISON: None TECHNIQUE: Color-flow triplex imaging with spectral analysis and compression Doppler were performed on the lower extremities. FINDINGS: There is deep vein thrombosis. There is occlusive thrombus in the left femoral vein from the upper thigh to the left popliteal vein. The calf veins are not visualized. There is no Casanova's cyst. IMPRESSION: Extensive deep vein thrombosis from the upper thigh through the popliteal vein. Calf veins are not visualized. This critical result was discussed with Dr. Watson on 10/07/2017, 6:14 PM and it was ascertained that the content and urgency of the report was understood at the time of direct communication.
--- NOTE | 2017-10-07 18:39 | Event Note ---
Event Note Event Note: Situation- 1)Received a call from radiology at [facility] that the patients US Doppler showed Extensive deep vein thrombosis from the upper thigh through the popliteal vein. Calf veins are not visualized. 2) another call after ordering a CTA by Dr. Arreola declaring Multiple Pulmonary embolisms on Left side of the lung and a few on the Right side of the lung, official reporting was awaited. Background- Ms. Alvarado is a 86yo F w/ PMH of baseline [place] dementia, was being treated for a C. difficile infection by the visiting FILAMENT TESTER at the facility, was brought to the hospital for UTI and C diff colitis. ID consult, Dr Rose noted the left lower extremity edema and wanted to rule out a DVT. Hence Doppler of lower extremities was done. Assessment- Presence of a DVT occluding the veins was a risk factor for Pulmonary embolism. Hence CTA was ordered to rule out pulmonary embolism. Recommendations- After the reporting of Presence of an occlusive DVT , Immediate action was taken to rule out pulmonary embolism and CTA was ordered. Risk of the DVT causing PE was explained to the patient and her daughter and a CTA was done to rule out Pulmonary embolism. Patient underwent CTA and was found to have multiple Pulmonary emboli on the left side and some on the right side of the lung. Decision is being made to manage her care as discussed with MOD, Dr Raven Parsons, ORDERED PRO BNP, TROPS, EKG. The night team was signed out with detailed information about the event and IV heparin was started. The patient was not back to the floor at the time of sign out.
--- NOTE | 2017-10-07 19:59 | CT SCAN REPORT ---
EXAMINATION: CT ANGIOGRAM CHEST CT ABDOMEN AND PELVIS WITH CONTRAST CLINICAL INFORMATION: Diarrhea. Incontinence. DVT. Concern for pulmonary embolism. COMPARISON: CT chest 09/07/2017. TECHNIQUE: A noncontrast localizer was performed, followed by the administration of 95 mL Optiray [address] of the chest was then performed. Coronal and sagittal reformatted and 3-D technique MIP images of the chest were completed at the CT scanner and reviewed on the PACS workstation. No adverse effects were reported. Images were then performed through the abdomen and pelvis. Coronal and sagittal reformatted images performed at CT scanner by technologist. DLP: 378.54 mGy-cm. FINDINGS: Patient was imaged with arms at the side which does cause artifact. 1. CTA CHEST: Vascular: There are pulmonary emboli. Most of the emboli are on the left. They are in the distal left main pulmonary artery and extend into the more peripheral branches of the left lung involving all lobes. The majority of the emboli though are in the lower lobe. On the right, there are a couple tiny emboli probably in the distal arteries of the lower lobe. Thoracic aorta is of normal caliber with no aneurysm or dissection. There are vascular wall calcifications of the aorta. Mediastinum: No mediastinal mass. No significant lymphadenopathy. There is no pericardial effusion. The right and left lobes of the thyroid are enlarged and extend substernal. There are multiple coarse calcifications and heterogeneity of the density of the thyroid. Lungs: The lungs are clear. No nodule or infiltrate. Central bronchial airways open. Fluid: There is no pericardial effusion. There is no pleural effusion. Axilla: No significant lymphadenopathy. 2. CT SCAN ABDOMEN PELVIS: Liver, Gallbladder, and Biliary Tree: The liver is normal in size, shape, and attenuation. No focal hepatic lesion or biliary ductal dilatation is present. Status post cholecystectomy. Pancreas: There is atrophy of the pancreas. Spleen: Unremarkable. Adrenal Glands: Unremarkable. Kidneys and Ureters: The kidneys are normal in size, shape, and attenuation. No hydronephrosis, hydroureter, or calculi seen. No perinephric stranding. Bladder: Bladder is obscured by streak artifact from bilateral hip replacement. Gastrointestinal Tract: There is a moderate volume of stool throughout the colon. There is no acute change of the bowel. No bowel obstruction. No bowel wall thickening or edema. There are diverticula of left colon and sigmoid but no diverticulitis. The appendix is not visualized. There is no inflammatory change of the mesentery. The small-bowel loops are normal. Abdominal Wall: Small air collection in the subcutaneous tissue at the left anterior abdominal wall likely iatrogenic from subcutaneous injection. There is no ventral wall hernia. Lymph Nodes: There is no bulky lymphadenopathy. Vascular: There are vascular wall calcifications of aorta and iliac arteries without aneurysm. Pelvic Viscera: Pelvis obscured by streak artifact from bilateral hip replacement. Osseous Structures: Bilateral hip replacement. Mild degenerative spondylosis of the spine with endplate spurring of the vertebrae. IMPRESSION: 1. Pulmonary emboli, mostly affecting the left lung. 2. No acute abnormality of the abdomen or the pelvis. This critical result was discussed with Dr. Watson on 10/07/2017, 7:15 PM and it was ascertained that the content and urgency of the report was understood at the time of direct communication.
[2017-10-07 22:05] VITALS: BP 126/80
[2017-10-08 03:55] LABS: ABSOLUTE BASOPHIL COUNT 0 /CUMM (0.0-0.2); ABSOLUTE EOSINOPHIL COUNT 0.6 /CUMM (0.0-0.7); ABSOLUTE LYMPH COUNT 6.3 /CUMM (1.2-3.4); ABSOLUTE MONOCYTE COUNT 0.7 /CUMM (0.10-0.60); BASOPHIL % 0.3 % (0.0-2.0); EOSINOPHIL % 3.8 % (0-5); GRANULOCYTE % 47.9 % (42.2-75.2); HEMATOCRIT 27.6 % (37-47); MEAN CORPUSCULAR HGB 24.7 PG (27.0-31.0); MEAN CORPUSCULAR HGB CONC 32.2 G/DL (33.0-37.0); MEAN CORPUSCULAR VOLUME 76.7 FL (81.0-99.0); MEAN PLATELET VOLUME 6.9 FL (7.4-10.4); RBC DISTRIBUTION WIDTH 16.2 % (11.5-14.5); WHITE BLOOD CELL COUNT 14.6 /CUMM (4.8-10.8)
[2017-10-08 04:11] LABS: PLATELET COUNT 229 /CUMM (130-400)
[2017-10-08 04:20] LABS: PTT 49 SEC (25-37)
[2017-10-08 06:56] VITALS: BP 150/84
--- NOTE | 2017-10-08 07:27 | PN- Housestaff ---
Subjective Follow-up For: UTI C difficile Leukocytosis DVT/PE Subjective: Patient is resting comfortably in bed. He seems more mentally alert today. She asks me compound questions. Her daughter is at bedside. Review of Systems Constitutional: Reports: see HPI. Objective Last 24 Hrs of Vital Signs/I&O Vital Signs Date Time Temp Pulse Resp B/P B/P Pulse O2 O2 Flow FiO2 Mean Ox Delivery Rate 10/08 1612 Room Air 10/08 1437 98.2 97 18 132/68 96 Room Air 10/08 1033 97 130/90 10/08 0656 98.8 98 24 150/84 95 10/07 2205 99.0 102 24 126/80 95 10/07 1630 Room Air 10/07 1626 Room Air Intake & Output 10/08 1600 10/08 0800 10/08 0000 Intake Total 210.8 250 Output Total Balance 210.8 250 Intake, IV 210.8 Intake, Oral 250 Number 2 1 Bowel Movements Patient 156 lb Weight Physical Exam General Appearance: Alert, Cooperative, Mild Distress HEENT: Atraumatic, PERRLA, EOMI Neck: Supple Cardiovascular: Normal S1, Normal S2 Lungs: Clear to Auscultation, Normal Air Movement Abdomen: Normal Bowel Sounds, Soft, No Tenderness Extremities: B/L lower extremity swelling Current Medications: Current Medications Sig/Shaquille Start time Last Medication Dose Route Stop Time Status Admin Acetaminophen 650 MG Q6PRN PRN 10/06 1600 AC PO Aspirin Buffered 81 MG DAILY 10/07 0900 AC 10/08 PO 1031 Enoxaparin Sodium 40 MG DAILY 10/06 1601 DC 10/07 SC 1100 Heparin Sodium 0 .STK-MED ONE 10/08 0453 DC (Porcine) .ROUTE Heparin Sodium 2,832 UNIT ONCE ONE 10/08 0450 DC 10/08 (Porcine) IV 10/08 0451 0450 Heparin Sodium 25,000 UNIT Q24H 10/07 1945 AC 10/08 (Porcine) IV 1612 Sodium Chloride 500 ML Insulin Aspart 0 TIDAC 10/06 1700 AC 10/08 SC 1029 Lactobacillus 1 CAP DAILY 10/06 1604 AC 10/08 Acidophilus PO 1034 Lisinopril 2.5 MG DAILY 10/06 1604 AC 10/08 PO 1033 Lorazepam 0.5 MG BID 10/06 2100 AC 10/08 PO 10/13 2058 1030 Magnesium Sulfate 1 GM Q4 10/08 1400 DC 10/08 Dextrose/Water 100 ML IV 10/09 0359 1124 Magnesium Sulfate 1 GM Q2H 10/08 1330 AC 10/08 Dextrose/Water 100 ML IV 10/08 1929 1356 Methimazole 5 MG DAILY 10/07 0900 AC 10/08 PO 1034 Mirtazapine 15 MG QPM 10/06 2100 AC 10/07 PO 1956 Montelukast Sodium 10 MG DAILY 10/07 0900 AC 10/08 PO 1034 Omeprazole 40 MG DAILY AC 10/06 1605 AC 10/06 PO 1853 Patient Medication 1 ED ONE ONE 10/07 1815 DC Teaching ED 10/07 1816 Phosphate 250 MG PC AND AT BEDTIME 10/08 1300 AC PO 10/09 1801 Potassium Chloride 40 MEQ BID 10/07 2237 DC 10/08 PO 10/08 0901 1031 Potassium Chloride 40 MEQ BID 10/07 2100 DC PO 10/08 0901 Last 24 Hrs of Lab/Romie Results Last 24 Hrs of Labs/Mics: Laboratory Tests 10/08/17 1138: APTT 102 *H 10/08/17 0300: Anion Gap 6, Estimated GFR > 60, BUN/Creatinine Ratio 8.6, Phosphorus 2.7, Magnesium 0.7 *L, APTT 49 H, CBC w Diff NO MAN DIFF REQ, RBC 3.60 L, MCV 76.7 L, MCH 24.7 L, MCHC 32.2 L, RDW 16.2 H, MPV 6.9 L, Gran % 47.9, Lymphocytes % 43.1, Monocytes % 4.9, Eosinophils % 3.8, Basophils % 0.3, Absolute Granulocytes 7.0 H, Absolute Lymphocytes 6.3 H, Absolute Monocytes 0.7 H, Absolute Eosinophils 0.6, Absolute Basophils 0 10/07/175: Troponin I 0.02, Oqh-H-Bpeysraynyc Pept 956 H Microbiology 10/07 1645 STOOL: Clostridium difficile Toxin A & B - COMP Assessment/Plan Assessment: Assessment: Ms. Alvarado is a 86yo F w/ PMH of baseline [place] dementia, hyperthyrodism w/ multiple thyroid nodules, HTN, Anxiety, T2DM who was recently discharged from [facility] 22 days ago on 09/13/2017 after being treated for about 6 days for a UTI. She was discharged to a short-term rehab but presented back to the ED for concerns of worsening leukocytosis and hypokalemia. Patient was diagnosed with BL pulmonary embolus and Left Leg DVT yesterday. This could partially explain her leuckocytosis. We are now treating her with heparin drip. We will continue to follow her off antiobiotics as per ID recs, because she is no longer having diarrhea. She also had a 19 beat run of V tach today, and found her Mg to be 0.7 so we are repleting it. #Left Leg DVT #Bilateral Pulmonary Emboli #Hypomagnesemia #Hypokalemia #Leukocytosis Plan: - ID recs appreciated - Stool for C difficile pending - No evidence to suggest C difficile colitis from Abd CT - DC cftx and vanco and follow off abx - Now on heparin drip - Mg Sulfate IV 4 bags - NPO wednesday night for Echo on Wednesday Venous Doppler 10/07/17 Extensive deep vein thrombosis from the upper thigh through the popliteal vein. Calf veins are not visualized. CTA CHEST 10/07/17 There are pulmonary emboli. Most of the emboli are on the left. They are in the distal left main pulmonary artery and extend into the more peripheral branches of the left lung involving all lobes. The majority of the emboli though are in the lower lobe. On the right, there are a couple tiny emboli probably in the distal arteries of the lower lobe. CT Abd Pelvis IMPRESSION: 1. Pulmonary emboli, mostly affecting the left lung. 2. No acute abnormality of the abdomen or the pelvis. Problem List: 1. Bilateral pulmonary embolism Pain Ratin Pain Location: n/a Pain Goal: Remain pain free Pain Plan: per pathway Tomorrow's Labs & Rationales: BEP, CBC, Mg
--- NOTE | 2017-10-08 11:09 | PN- Att Addend ---
Attending Addendum Attending Brief Note Patient in bed, daughter at the bedside. Temp max 99. Other vital signs are stable. No finding yesterday afternoon was leg pain and swelling. The test showed DVT in the left thigh and also PE. Patient was started on heparin and will have to be bridged to an oral anticoagulant. Will get cardiology input also had some arrhythmias on the monitor. Will need to continue close observation. White count today 14,600. Intake & Output 10/08 1600 10/08 0400 10/07 1600 10/07 0400 10/06 1600 10/06 0400 Intake Total 210.8 250 590 300 Output Total 300 Balance 210.8 250 590 300 -300 Intake, IV 210.8 Intake, Oral 250 590 300 Number 1 2 Bowel Movements Output, Urine 300 Patient 156 lb 175 lb 175 lb Weight Weight Estimated Measurement Method Current Medications Sig/Shaquille Start time Last Medication Dose Route Stop Time Status Admin Acetaminophen 650 MG Q6PRN PRN 10/06 1600 AC PO Aspirin Buffered 81 MG DAILY 10/07 0900 AC 10/08 PO 1031 Ceftriaxone Sodium 1,000 MG 1800 10/06 1800 DC 10/06 IV 1923 Enoxaparin Sodium 40 MG DAILY 10/06 1601 DC 10/07 SC 1100 Heparin Sodium 0 .STK-MED ONE 10/08 0453 DC (Porcine) .ROUTE Heparin Sodium 2,832 UNIT ONCE ONE 10/08 0450 DC 10/08 (Porcine) IV 10/08 0451 0450 Heparin Sodium 25,000 UNIT Q24H 10/07 1945 AC 10/07 (Porcine) IV 2130 Sodium Chloride 500 ML Insulin Aspart 0 TIDAC 10/06 1700 AC 10/08 SC 1029 Lactobacillus 1 CAP DAILY 10/06 1604 AC 10/08 Acidophilus PO 1034 Lisinopril 2.5 MG DAILY 10/06 1604 AC 10/08 PO 1033 Lorazepam 0.5 MG BID 10/06 2100 AC 10/08 PO 10/13 2058 1030 Methimazole 5 MG DAILY 10/07 09 AC 10/08 PO 1034 Mirtazapine 15 MG QPM 10/06 2100 AC 10/07 PO 1956 Montelukast Sodium 10 MG DAILY 10/07 0900 AC 10/08 PO 1034 Omeprazole 40 MG DAILY AC 10/06 1605 AC 10/06 PO 1853 Patient Medication 1 ED ONE ONE 10/07 1815 DC Teaching ED 10/07 181 Potassium Chloride 40 MEQ BID 10/07 2237 DC 10/08 PO 10/08 0901 1031 Potassium Chloride 40 MEQ BID 10/07 2100 DC PO 10/08 0901 Vancomycin HCl 250 MG Q6H 10/07 0230 DC 10/07 PO 1100 Laboratory Tests 10/08/17 0300: Anion Gap 6, Estimated GFR > 60, BUN/Creatinine Ratio 8.6, Phosphorus Pending, Magnesium Pending, APTT 49 H, CBC w Diff NO MAN DIFF REQ, RBC 3.60 L, MCV 76.7 L, MCH 24.7 L, MCHC 32.2 L, RDW 16.2 H, MPV 6.9 L, Gran % 47.9, Lymphocytes % 43.1, Monocytes % 4.9, Eosinophils % 3.8, Basophils % 0.3, Absolute Granulocytes 7.0 H, Absolute Lymphocytes 6.3 H, Absolute Monocytes 0.7 H, Absolute Eosinophils 0.6, Absolute Basophils 0 10/07/175: Troponin I 0.02, Qyx-L-Lzxaoakcmfo Pept 956 H 10/07/17 0616: Anion Gap 8, Estimated GFR > 60, BUN/Creatinine Ratio 8.3, CBC w Diff NO MAN DIFF REQ, RBC 3.63 L, MCV 76.7 L, MCH 24.8 L, MCHC 32.3 L, RDW 16.9 H, MPV 7.1 L, Gran % 62.9, Lymphocytes % 28.9, Monocytes % 5.6, Eosinophils % 2.3, Basophils % 0.3, Absolute Granulocytes 10.3 H, Absolute Lymphocytes 4.7 H, Absolute Monocytes 0.9 H, Absolute Eosinophils 0.4, Absolute Basophils 0.1 10/06/17 1850: 10/06/17 1850: Lactic Acid 1.3 10/06/17 1524: Urine Color YEL, Urine Clarity HAZY H, Urine pH 6.0, Ur Specific [place] 1.015, Urine Protein NEG, Urine Ketones NEG, Urine Nitrite NEG, Urine Bilirubin NEG, Urine Urobilinogen 0.2, Ur Leukocyte Esterase LARGE H, Ur Microscopic SEDIMENT EXAMINED, Urine RBC 5-10 H, Urine WBC 15-25 H, Ur Epithelial Cells FEW, Urine Bacteria FEW H, Hyaline Casts FEW H, Urine Hemoglobin MOD H, Urine Glucose NEG 10/06/17 1240: Anion Gap 9, Estimated GFR > 60, BUN/Creatinine Ratio 11.4, Glucose 139 H, Lactic Acid 1.4, Calcium 7.6 L, Total Bilirubin 0.4, AST 12 L, ALT 27, Alkaline Phosphatase 138 H, Total Protein 6.2 L, Albumin 3.2 L, Globulin 3.0, Albumin/Globulin Ratio 1.1, CBC w Diff MAN DIFF ORDERED, RBC 4.41, MCV 76.2 L, MCH 24.7 L, MCHC 32.5 L, RDW 16.6 H, MPV 6.7 L, Gran % 70.4, Lymphocytes % 23.6, Monocytes % 4.5, Eosinophils % 1.1, Basophils % 0.4, Absolute Granulocytes 12.3 H, Segmented Neutrophils 61, Band Neutrophils 2, Absolute Lymphocytes 4.1 H, Lymphocytes 29, Monocytes 6, Absolute Monocytes 0.8 H, Eosinophils 2, Absolute Eosinophils 0.2, Absolute Basophils 0.1, Platelet Estimate VERIFIED BY SMEAR, Hypochromic-Microcytic 1+, Anisocytosis 1+, Microcytic Cells 1+ Microbiology 10/07 1645 STOOL: Clostridium difficile Toxin A & B - RECD 10/06 163 STOOL: Clostridium difficile Toxin A & B - CAN Cancelled: SPECIMEN NOT RECEIVED IN LABORATORY 10/06 1524 URINE ROUT: Urine Culture - RES 10/06 1300 BLOOD: Blood Culture - RES 10/06 1240 BLOOD: Blood Culture - RES Microbiology 10/07 1645 STOOL: Clostridium difficile Toxin A & B - RECD 10/06 1630 STOOL: Clostridium difficile Toxin A & B - CAN Cancelled: SPECIMEN NOT RECEIVED IN LABORATORY 10/06 1524 URINE ROUT: Urine Culture - RES 10/06 1300 BLOOD: Blood Culture - RES 10/06 1240 BLOOD: Blood Culture - RES Vital Signs Date Time Temp Pulse Resp B/P B/P Pulse O2 O2 Flow FiO2 Mean Ox Delivery Rate 10/08 1033 97 130/90 10/08 0656 98.8 98 24 150/84 95 10/07 2205 99.0 102 24 126/80 95 10/07 1630 Room Air 10/07 1626 Room Air 10/07 1509 20 138/70 10/07 1458 98.9 104 95 Room Air
[2017-10-08 12:25] LABS: PTT 102 SEC (25-37)
--- NOTE | 2017-10-08 13:42 | PN- Infect Dx ---
Subjective Subjective: Afebrile. She complains of weakness but has no focal complaints. She has had no diarrhea. Objective Last 24 Hrs of Vital Signs/I&O Vital Signs Date Time Temp Pulse Resp B/P B/P Pulse O2 O2 Flow FiO2 Mean Ox Delivery Rate 10/08 1033 97 130/90 10/08 0656 98.8 98 24 150/84 95 10/07 2205 99.0 102 24 126/80 95 10/07 1630 Room Air 10/07 1626 Room Air 10/07 1509 20 138/70 10/07 1458 98.9 104 95 Room Air Intake & Output 10/08 1600 10/08 0800 10/08 0000 Intake Total 210.8 250 Output Total Balance 210.8 250 Intake, IV 210.8 Intake, Oral 250 Number 1 1 Bowel Movements Patient 156 lb Weight Physical Exam Other Physical Findings: She appears comfortable in no acute distress Lungs crackles at the right base Heart regular rhythm with a 3/6 systolic ejection murmur Abdomen is soft, nontender with positive bowel sounds Back no CVA tenderness Extremities decreased swelling of the left lower extremity compared to the previous exam Results Last 24 Hours of Lab Results: Laboratory Tests 10/08 10/08 10/07 1138 0300 2034 Chemistry Sodium (137 - 145 mmol/L) 135 L Potassium (3.5 - 5.1 mmol/L) 4.0 Chloride (98 - 107 mmol/L) 101 Carbon Dioxide (22 - 30 mmol/L) 28 Anion Gap (5 - 16) 6 BUN (7 - 17 mg/dL) 6 L Creatinine (0.5 - 1.0 mg/dL) 0.7 Estimated GFR (>60 ml/min) > 60 BUN/Creatinine Ratio (7 - 25 %) 8.6 Phosphorus (2.5 - 4.5 mg/dL) 2.7 Magnesium (1.6 - 2.3 mg/dL) 0.7 *L Troponin I (< 0.11 ng/ml) 0.02 Zwz-Y-Ywpkzfevmzh Pept (<125 pg/mL) 956 H Coagulation APTT (25 - 37 SEC) 102 *H 49 H Hematology CBC w Diff NO MAN DIFF REQ WBC (4.8 - 10.8 /CUMM) 14.6 H RBC (4.20 - 5.40 /CUMM) 3.60 L Hgb (12.0 - 16.0 G/DL) 8.9 L Hct (37 - 47 %) 27.6 L MCV (81.0 - 99.0 FL) 76.7 L MCH (27.0 - 31.0 PG) 24.7 L MCHC (33.0 - 37.0 G/DL) 32.2 L RDW (11.5 - 14.5 %) 16.2 H Plt Count (130 - 400 /CUMM) 229 MPV (7.4 - 10.4 FL) 6.9 L Gran % (42.2 - 75.2 %) 47.9 Lymphocytes % (20.5 - 51.1 %) 43.1 Monocytes % (1.7 - 9.3 %) 4.9 Eosinophils % (0 - 5 %) 3.8 Basophils % (0.0 - 2.0 %) 0.3 Absolute Granulocytes (1.4 - 6.5 /CUMM) 7.0 H Absolute Lymphocytes (1.2 - 3.4 /CUMM) 6.3 H Absolute Monocytes (0.10 - 0.60 /CUMM) 0.7 H Absolute Eosinophils (0.0 - 0.7 /CUMM) 0.6 Absolute Basophils (0.0 - 0.2 /CUMM) 0 Last 24 Hours of Romie Results: Blood cultures 2 October 06 negative Urine culture October 06 approximately 50,000 colonies of yeast Stool C. difficile October 07 pending Recent Imaging Studies: Dopplers of both lower extremities October 07 revealed an extensive DVT from the upper thigh through the popliteal vein of the left leg CT of the chest October 07 revealed pulmonary emboli, mostly on the left CT of the abdomen and pelvis October 07 negative Assessment/Plan ID Impression: Stable, with her temperatures remaining normal and her white blood cell count decreasing, off antibiotics. The positive urine culture for Lo is of unclear significance and should not require treatment. She is now on Heparin for the recently diagnosed left leg DVT and pulmonary emboli, which may explain some of her leukocytosis. She has had no diarrhea to suggest a relapse of C. difficile, status post a recent 10 day course of Vancomycin, with a repeat C. difficile pending. Suggestion: 1. Follow-up the stool for C. difficile 2. Further management of her left leg DVT and pulmonary emboli per Medicine 3. Continue to follow off antibiotics pending above
--- NOTE | 2017-10-08 14:19 | Cons- Cardiology ---
General Information and HPI Consulting Request Date of Consult: 10/08/17 Requested By: Jhon Buckley MD History of Present Illness: 86-year-old woman with a history of dementia, hospitalized 1 month prior to admission with confusion, weakness and urinary and fecal incontinence, treated for a urinary tract infection and discharged to a rehab facility to complete a 10 day course of antibiotics, diagnosed there with C. difficile and treated with Vancomycin for 10 days, admitted on October 06 because of hypokalemia and leukocytosis. Patient diagnosed with bilateral pulmonary embolism (affecting left lung more than right) and lower extremity DVT, presently on heparin. There was however no hemodynamic compromise. runs of NSVT were observed 10/07 and 10/08, asymptomatic. Allergies/Medications Allergies: Coded Allergies: No Known Allergies (09/07/17) Home Med List: Aspirin (Ecotrin*) 81 MG TABLET.DR 1 TAB PO DAILY HEART HEALTH (Reported) Bacillus Coagulans/Inulin (Probiotic Formula Capsule) 1 BILLION CELL-250 MG CAPSULE 1 CAP PO DAILY GI (Reported) Cholecalciferol (Vitamin D3) 1,000 UNIT TABLET 1 TAB PO DAILY VITAMIN SUPPORT (Reported) Lisinopril 2.5 MG TABLET 1 TAB PO DAILY HEART (Reported) Lorazepam (Ativan) 0.5 MG TABLET 1 TAB PO BID ANXIETY (Reported) Methimazole 5 MG TABLET 1 TAB PO DAILY THYROID (Reported) Mirtazapine 15 MG TABLET 1 TAB PO QPM SLEEP (Reported) Montelukast Sodium (Singulair) 10 MG TABLET 1 TAB PO DAILY ALLERGIES ( Reported) Pantoprazole Sodium (Protonix) 40 MG TABLET.DR 1 TAB PO DAILY GI (Reported) Sitagliptin Phos/Metformin HCl (Janumet 50-500 MG Tablet) 50 MG-500 MG TABLET 2 TAB PO DAILY DIABETES (Reported) Sitagliptin Phos/Metformin HCl (Janumet 50-1,000 MG Tablet) 50 MG-1,000 MG TABLET 1 TAB PO QPM DIABETES (Reported) Sulfamethoxazole/Trimethoprim (Sulfamethoxazole-Tmp Ds Tablet) 800 MG-160 MG TABLET 1 TAB PO BID UTI Current Medications: Current Medications Sig/Shaquille Start time Last Medication Dose Route Stop Time Status Admin Acetaminophen 650 MG Q6PRN PRN 10/06 1600 AC PO Aspirin Buffered 81 MG DAILY 10/07 0900 AC 10/08 PO 1031 Ceftriaxone Sodium 1,000 MG 1800 10/06 1800 DC 10/06 IV 1923 Enoxaparin Sodium 40 MG DAILY 10/06 1601 DC 10/07 SC 1100 Heparin Sodium 0 .STK-MED ONE 10/08 0453 DC (Porcine) .ROUTE Heparin Sodium 2,832 UNIT ONCE ONE 10/08 0450 DC 10/08 (Porcine) IV 10/08 0451 0450 Heparin Sodium 25,000 UNIT Q24H 10/07 1945 AC 10/07 (Porcine) IV 2130 Sodium Chloride 500 ML Insulin Aspart 0 TIDAC 10/06 1700 AC 10/08 SC 1029 Lactobacillus 1 CAP DAILY 10/06 1604 AC 10/08 Acidophilus PO 1034 Lisinopril 2.5 MG DAILY 10/06 1604 AC 10/08 PO 1033 Lorazepam 0.5 MG BID 10/06 2100 AC 10/08 PO 10/13 2059 1030 Magnesium Sulfate 1 GM Q4 10/08 1400 DC 10/08 Dextrose/Water 100 ML IV 10/09 0359 1124 Magnesium Sulfate 1 GM Q2H 10/08 1330 AC 10/08 Dextrose/Water 100 ML IV 10/08 1929 1356 Methimazole 5 MG DAILY 10/07 0900 AC 10/08 PO 1034 Mirtazapine 15 MG QPM 10/06 2100 AC 10/07 PO 1956 Montelukast Sodium 10 MG DAILY 10/07 0900 AC 10/08 PO 1034 Omeprazole 40 MG DAILY AC 10/06 1605 AC 10/06 PO 1853 Patient Medication 1 ED ONE ONE 10/07 1815 DC Teaching ED 10/07 1816 Phosphate 250 MG PC AND AT BEDTIME 10/08 1300 AC PO 10/09 1801 Potassium Chloride 40 MEQ BID 10/07 2237 DC 10/08 PO 10/08 0901 1031 Potassium Chloride 40 MEQ BID 10/07 2100 DC PO 10/08 0901 Vancomycin HCl 250 MG Q6H 10/07 0230 DC 10/07 PO 1100 Review of Systems Review of Systems: see HPI Past History Travel History Traveled to [place] past 21 day No Medical History Neurological: dementia EENT: allergies Cardiovascular: hypertension Respiratory: NONE Gastrointestinal: GERD Hepatic: NONE Musculoskeletal: osteoarthritis Psychiatric: anxiety, depression Endocrine: diabetes, hyperthyroidism Blood Disorders: NONE 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 spouse Services at Home: None Primary Language: Emir[place] Smoking Status: Never Smoked ETOH Use: denies use Illicit Drug Use: denies illicit drug use Living Will? yes Power of Reed Repairer/HCP? 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 Ambulation: walker (currently nonambulatory) IADLs Needs Assist: shopping, housework, finances, food prep, telephone, transportation, medication admin. Exam & Diagnostic Data Vital Signs and I&O Vital Signs Date Time Temp Pulse Resp B/P B/P Pulse O2 O2 Flow FiO2 Mean Ox Delivery Rate 10/08 1033 97 130/90 10/08 0656 98.8 98 24 150/84 95 10/07 2205 99.0 102 24 126/80 95 10/07 1630 Room Air 10/07 1626 Room Air 10/07 1509 20 138/70 10/07 1458 98.9 104 95 Room Air Intake & Output 10/08 1600 10/08 0800 10/08 0000 10/07 1600 10/07 0800 10/07 0000 Intake Total 210.8 250 480 110 300 Output Total Balance 210.8 250 480 110 300 Intake, IV 210.8 Intake, Oral 250 480 110 300 Number 2 1 2 Bowel Movements Patient 156 lb 175 lb Weight Physical Exam: General Appearance: Alert, oriented, no acute distress HEENT: Atraumatic, PERRLA, EOMI Neck: Supple, trachea midline, no JVD Cardiovascular: Normal S1, Normal S2, 3/6 systolic ejection murmur LUSB. Lungs: Clear to Auscultation, Normal Air Movement Abdomen: Normal Bowel Sounds, Soft, No Tenderness Extremities: B/L lower extremity swelling Labs/Romie Results: Laboratory Tests 10/08 10/08 10/07 1138 0300 2035 Chemistry Sodium (137 - 145 mmol/L) 135 L Potassium (3.5 - 5.1 mmol/L) 4.0 Chloride (98 - 107 mmol/L) 101 Carbon Dioxide (22 - 30 mmol/L) 28 Anion Gap (5 - 16) 6 BUN (7 - 17 mg/dL) 6 L Creatinine (0.5 - 1.0 mg/dL) 0.7 Estimated GFR (>60 ml/min) > 60 BUN/Creatinine Ratio (7 - 25 %) 8.6 Phosphorus (2.5 - 4.5 mg/dL) 2.7 Magnesium (1.6 - 2.3 mg/dL) 0.7 *L Troponin I (< 0.11 ng/ml) 0.02 Uaf-W-Bjppijhtdwr Pept (<125 pg/mL) 956 H Coagulation APTT (25 - 37 SEC) 102 *H 49 H Hematology CBC w Diff NO MAN DIFF REQ WBC (4.8 - 10.8 /CUMM) 14.6 H RBC (4.20 - 5.40 /CUMM) 3.60 L Hgb (12.0 - 16.0 G/DL) 8.9 L Hct (37 - 47 %) 27.6 L MCV (81.0 - 99.0 FL) 76.7 L MCH (27.0 - 31.0 PG) 24.7 L MCHC (33.0 - 37.0 G/DL) 32.2 L RDW (11.5 - 14.5 %) 16.2 H Plt Count (130 - 400 /CUMM) 229 MPV (7.4 - 10.4 FL) 6.9 L Gran % (42.2 - 75.2 %) 47.9 Lymphocytes % (20.5 - 51.1 %) 43.1 Monocytes % (1.7 - 9.3 %) 4.9 Eosinophils % (0 - 5 %) 3.8 Basophils % (0.0 - 2.0 %) 0.3 Absolute Granulocytes (1.4 - 6.5 /CUMM) 7.0 H Absolute Lymphocytes (1.2 - 3.4 /CUMM) 6.3 H Absolute Monocytes (0.10 - 0.60 /CUMM) 0.7 H Absolute Eosinophils (0.0 - 0.7 /CUMM) 0.6 Absolute Basophils (0.0 - 0.2 /CUMM) 0 10/07 10/06 10/06 0616 1850 1850 Chemistry Sodium (137 - 145 mmol/L) 135 L Potassium (3.5 - 5.1 mmol/L) 3.3 L 3.1 L Chloride (98 - 107 mmol/L) 100 Carbon Dioxide (22 - 30 mmol/L) 27 Anion Gap (5 - 16) 8 BUN (7 - 17 mg/dL) 5 L Creatinine (0.5 - 1.0 mg/dL) 0.6 Estimated GFR (>60 ml/min) > 60 BUN/Creatinine Ratio (7 - 25 %) 8.3 Lactic Acid (0.7 - 2.1 mmol/L) 1.3 Hematology CBC w Diff NO MAN DIFF REQ WBC (4.8 - 10.8 /CUMM) 16.3 H RBC (4.20 - 5.40 /CUMM) 3.63 L Hgb (12.0 - 16.0 G/DL) 9.0 L Hct (37 - 47 %) 27.8 L MCV (81.0 - 99.0 FL) 76.7 L MCH (27.0 - 31.0 PG) 24.8 L MCHC (33.0 - 37.0 G/DL) 32.3 L RDW (11.5 - 14.5 %) 16.9 H Plt Count (130 - 400 /CUMM) 205 MPV (7.4 - 10.4 FL) 7.1 L Gran % (42.2 - 75.2 %) 62.9 Lymphocytes % (20.5 - 51.1 %) 28.9 Monocytes % (1.7 - 9.3 %) 5.6 Eosinophils % (0 - 5 %) 2.3 Basophils % (0.0 - 2.0 %) 0.3 Absolute Granulocytes (1.4 - 6.5 /CUMM) 10.3 H Absolute Lymphocytes (1.2 - 3.4 /CUMM) 4.7 H Absolute Monocytes (0.10 - 0.60 /CUMM) 0.9 H Absolute Eosinophils (0.0 - 0.7 /CUMM) 0.4 Absolute Basophils (0.0 - 0.2 /CUMM) 0.1 10/06 1524 Urines Urine Color (YEL,AMB,STR) YEL Urine Clarity (CLEAR) HAZY H Urine pH (5.0 - 8.0) 6.0 Ur Specific [place] (1.001 - 1.035) 1.015 Urine Protein (NEG,<30 MG/DL) NEG Urine Ketones (NEG) NEG Urine Nitrite (NEG) NEG Urine Bilirubin (NEG) NEG Urine Urobilinogen (0.1 - 1.0 EU/dl) 0.2 Ur Leukocyte Esterase (NEG) LARGE H Ur Microscopic SEDIMENT EXAMINED Urine RBC (0 - 5 /HPF) 5-10 H Urine WBC (0 - 2 /HPF) 15-25 H Ur Epithelial Cells (NONE,FEW) FEW Urine Bacteria (NEG/NONE) FEW H Hyaline Casts (0/LPF) FEW H Urine Hemoglobin (NEG) MOD H Urine Glucose (N MG/DL) NEG Assessment/Plan Assessment/Plan Bilateral pulmonary embolisms in patient following hospitalization and rehab for UTI and c.diff. No hemodynamic compromise. Continue IV heparin and will need overlap treatment with NOAC for at least 48hrs. NSVT: maintain K+>4.0 and Mg repleated. TTE to come. Consult Acknowledgment - Thank you for your consult request.
[2017-10-08 14:37] VITALS: BP 132/68
[2017-10-08 21:16] LABS: PTT 31 SEC (25-37)
[2017-10-08 21:46] VITALS: BP 126/70
[2017-10-09 03:54] LABS: PTT 56 SEC (25-37)
[2017-10-09 06:47] VITALS: BP 161/74
[2017-10-09 07:39] LABS: ABSOLUTE BASOPHIL COUNT 0.1 /CUMM (0.0-0.2); ABSOLUTE EOSINOPHIL COUNT 0.6 /CUMM (0.0-0.7); ABSOLUTE GRANULOCYTE CT 7.2 /CUMM (1.4-6.5); ABSOLUTE LYMPH COUNT 5.5 /CUMM (1.2-3.4); ABSOLUTE MONOCYTE COUNT 0.5 /CUMM (0.10-0.60); BASOPHIL % 0.4 % (0.0-2.0); EOSINOPHIL % 4.5 % (0-5); GRANULOCYTE % 51.9 % (42.2-75.2); HEMATOCRIT 28.9 % (37-47); MEAN CORPUSCULAR HGB 25.1 PG (27.0-31.0); MEAN CORPUSCULAR HGB CONC 32.6 G/DL (33.0-37.0); MEAN PLATELET VOLUME 6.8 FL (7.4-10.4); PLATELET COUNT 280 /CUMM (130-400); RBC DISTRIBUTION WIDTH 17.3 % (11.5-14.5); RED BLOOD CELL CT 3.76 /CUMM (4.20-5.40)
[2017-10-09 08:39] LABS: WHITE BLOOD CELL COUNT 13.9 /CUMM (4.8-10.8)
--- NOTE | 2017-10-09 09:19 | PN- Housestaff ---
Subjective Follow-up For: BL Pulm embolism Subjective: Patient resting comfortably with daughters at bedside. She is more alert and in a happier mood today. She denies chest pain, trouble breathing. No events overnight. Review of Systems Constitutional: Reports: see HPI. Objective Last 24 Hrs of Vital Signs/I&O Vital Signs Date Time Temp Pulse Resp B/P B/P Pulse O2 O2 Flow FiO2 Mean Ox Delivery Rate 10/10 0639 97.2 98 20 138/70 95 Room Air 10/09 2214 98.4 100 20 144/72 95 Room Air 10/09 1600 Room Air 10/09 1522 98.6 96 20 130/80 95 Room Air 10/09 1033 88 161/74 10/09 0647 98.6 88 20 161/74 96 Room Air Intake & Output 10/10 0800 10/10 0000 10/09 1600 Intake Total 200 100 743.6 Output Total Balance 200 100 743.6 Intake, IV 263.6 Intake, Oral 200 100 480 Number 2 3 Bowel Movements Patient 153 lb Weight Physical Exam General Appearance: Alert, Cooperative, No Acute Distress HEENT: Atraumatic, EOMI Neck: Supple Cardiovascular: Normal S1, Normal S2 Lungs: Clear to Auscultation, Normal Air Movement Abdomen: Normal Bowel Sounds, Soft, No Tenderness Extremities: No Cyanosis, BL swelling LE Current Medications: Current Medications Sig/Shaquille Start time Last Medication Dose Route Stop Time Status Admin Acetaminophen 650 MG Q6PRN PRN 10/06 1600 AC PO Aspirin Buffered 81 MG DAILY 10/07 09 AC 10/09 PO 1033 Heparin Sodium 25,000 UNIT Q24H 10/07 1945 AC 10/09 (Porcine) IV 1450 Sodium Chloride 500 ML Insulin Aspart 0 TIDAC 10/06 1700 AC 10/08 SC 1029 Lactobacillus 1 CAP DAILY 10/06 1604 AC 10/09 Acidophilus PO 1033 Lisinopril 2.5 MG DAILY 10/06 1604 AC 10/09 PO 1033 Lorazepam 0.5 MG BID 10/06 2099 AC 10/09 PO 10/13 Methimazole 5 MG DAILY 10/07 0900 AC 10/09 PO 1033 Mirtazapine 15 MG QPM 10/06 2100 AC 10/09 PO 2007 Montelukast Sodium 10 MG DAILY 10/07 09 AC 10/09 PO 1033 Nystatin 1 FARAZ TID 10/09 1032 AC 10/09 TOP 2007 Omeprazole 40 MG DAILY AC 10/06 1605 AC 10/06 PO 1853 Phosphate 250 MG PC AND AT BEDTIME 10/08 1300 DC 10/09 PO 10/09 1801 1726 Last 24 Hrs of Lab/Romie Results Last 24 Hrs of Labs/Mics: Laboratory Tests 10/10/17 0020: APTT 103 *H 10/09/17 1215: APTT 67 H 10/09/17 0651: CBC w Diff NO MAN DIFF REQ, RBC 3.76 L, MCV 77.0 L, MCH 25.1 L, MCHC 32.6 L, RDW 17.3 H, MPV 6.8 L, Gran % 51.9, Lymphocytes % 39.4, Monocytes % 3.8, Eosinophils % 4.5, Basophils % 0.4, Absolute Granulocytes 7.2 H, Absolute Lymphocytes 5.5 H, Absolute Monocytes 0.5, Absolute Eosinophils 0.6, Absolute Basophils 0.1 Assessment/Plan Assessment: Venous Doppler 10/07/17 Extensive deep vein thrombosis from the upper thigh through the popliteal vein. Calf veins are not visualized. CTA CHEST 10/07/17 There are pulmonary emboli. Most of the emboli are on the left. They are in the distal left main pulmonary artery and extend into the more peripheral branches of the left lung involving all lobes. The majority of the emboli though are in the lower lobe. On the right, there are a couple tiny emboli probably in the distal arteries of the lower lobe. CT Abd Pelvis IMPRESSION: 1. Pulmonary emboli, mostly affecting the left lung. 2. No acute abnormality of the abdomen or the pelvis. Ms. Alvarado is a 86yo F w/ PMH of baseline [place] dementia, hyperthyrodism w/ multiple thyroid nodules, HTN, Anxiety, T2DM who was recently discharged from [facility] 22 days ago on 09/13/2017 after being treated for about 6 days for a UTI. She was discharged to a short-term rehab but presented back to the ED for concerns of worsening leukocytosis and hypokalemia. Patient was diagnosed with BL pulmonary embolus and Left Leg DVT 10/07/17. This could partially explain her leuckocytosis. We are now treating her with heparin drip. We will continue to follow her off antiobiotics as per ID recs, because she is no longer having diarrhea. She also had a 19 beat run of V tach 10/08/17, and found her Mg to be 0.7 so we repleted it back to 1.9. We will closely follow her respiratory status and WBC. Problem List: #Left Leg DVT #Bilateral Pulmonary Emboli #Leukocytosis - Resolving #Hypomagnesemia - Resolved #Hypokalemia - Resolved Plan: - Continue heparin drip - Continue to monitor O2 sats - Daily CBC - ID recs appreciated - Stool for C difficile - Negative - No evidence to suggest C difficile colitis from Abd CT - Remove contact precautions - DC cftx and vanco and follow off abx Problem List: 1. Bilateral pulmonary embolism Pain Ratin Pain Location: N/a Pain Goal: Remain pain free Pain Plan: Per pathway Tomorrow's Labs & Rationales: CBC CBC
[2017-10-09 12:43] LABS: PTT 67 SEC (25-37)
--- NOTE | 2017-10-09 14:02 | PN- Att Addend ---
Attending Addendum Attending Brief Note Mrs. Alvarado was interviewed and examined. Her EMR was reviewed. She denies chest pain, shortness of breath, pleuritic pain, palpitations, and hemoptysis. She is afebrile. Heart and respiratory rates are satisfactory. Systolic BP is mildly elevated at approximately 160. She is in sinus rhythm at a rate in the mid 90s. Oxygen saturation levels are satisfactory on room air. She is in no acute distress. Her chest is clear to auscultation. Heart rhythm is regular. There is a 2/6 systolic ejection murmur. Her abdomen is soft and nontender. There is bilateral lower extremity edema. WBC are 13,900 today. She has a stable anemia. Electrolytes and renal function are satisfactory. Magnesium has corrected to 1.9 today. CTA done yesterday showed bilateral pulmonary emboli left greater than right. Doppler studies showed left-sided thrombosis in the proximal femoral vein extending to the popliteal vein. We are continuing to treat her pulmonary emboli with intravenous heparin. If she is in need of cardiology follow-up please note that her is being followed by Ignacio Aquino MD. I have requested a pulmonary consult of Dr. Magallanes. We are continuing her other maintenance medications.
--- NOTE | 2017-10-09 14:41 | Cons- Pulmonary ---
General Information and HPI Consulting Request Date of Consult: 10/09/17 Requested By: Dr. Bullock Reason for Consult: Pulmonary embolism Source of Information: patient, old records Exam Limitations: unable to give history, patient's age, not alert/orientated History of Present Illness: The patient is an 86 year old female with a PMH of baseline [place] dementia, hyperthyrodism w/ multiple thyroid nodules, HTN, Anxiety, and T2DM who was recently discharged from [facility] on 09/13/2017 after being treated for about 6 days for a UTI. She was discharged to a short-term rehab but presented back to the ED for concerns of worsening leukocytosis and hypokalemia. Full work up revealed the patient to have a LE DVT and pulmonary emboli without hemodynamic compromise. CTA done on 10/07/17 showed pulmonary emboli, mostly affecting the left lung. She is currently on heparin for anticoagulation. The patient's respiratory status is stable and she is on room air with saturations in the 90s. The patient is not able to offer complaints. Allergies/Medications Allergies: Coded Allergies: No Known Allergies (09/07/17) Home Med List: Aspirin (Ecotrin*) 81 MG TABLET.DR 1 TAB PO DAILY HEART HEALTH (Reported) Bacillus Coagulans/Inulin (Probiotic Formula Capsule) 1 BILLION CELL-250 MG CAPSULE 1 CAP PO DAILY GI (Reported) Cholecalciferol (Vitamin D3) 1,000 UNIT TABLET 1 TAB PO DAILY VITAMIN SUPPORT (Reported) Lisinopril 2.5 MG TABLET 1 TAB PO DAILY HEART (Reported) Lorazepam (Ativan) 0.5 MG TABLET 1 TAB PO BID ANXIETY (Reported) Methimazole 5 MG TABLET 1 TAB PO DAILY THYROID (Reported) Mirtazapine 15 MG TABLET 1 TAB PO QPM SLEEP (Reported) Montelukast Sodium (Singulair) 10 MG TABLET 1 TAB PO DAILY ALLERGIES ( Reported) Pantoprazole Sodium (Protonix) 40 MG TABLET.DR 1 TAB PO DAILY GI (Reported) Sitagliptin Phos/Metformin HCl (Janumet 50-500 MG Tablet) 50 MG-500 MG TABLET 2 TAB PO DAILY DIABETES (Reported) Sitagliptin Phos/Metformin HCl (Janumet 50-1,000 MG Tablet) 50 MG-1,000 MG TABLET 1 TAB PO QPM DIABETES (Reported) Sulfamethoxazole/Trimethoprim (Sulfamethoxazole-Tmp Ds Tablet) 800 MG-160 MG TABLET 1 TAB PO BID UTI Current Medications: Current Medications Sig/Shaquille Start time Last Medication Dose Route Stop Time Status Admin Acetaminophen 650 MG Q6PRN PRN 10/06 1600 AC PO Aspirin Buffered 81 MG DAILY 10/07 0900 AC 10/09 PO 1033 Heparin Sodium 25,000 UNIT Q24H 10/07 1945 AC 10/08 (Porcine) IV 1612 Sodium Chloride 500 ML Insulin Aspart 0 TIDAC 10/06 1700 AC 10/08 SC 1029 Lactobacillus 1 CAP DAILY 10/06 1604 AC 10/09 Acidophilus PO 1033 Lisinopril 2.5 MG DAILY 10/06 1604 AC 10/09 PO 1033 Lorazepam 0.5 MG BID 10/06 2100 AC 10/09 PO 10/13 2058 1033 Magnesium Sulfate 1 GM Q2H 10/08 1330 DC 10/08 Dextrose/Water 100 ML IV 10/08 1929 193 Methimazole 5 MG DAILY 10/07 0900 AC 10/09 PO 1033 Mirtazapine 15 MG QPM 10/06 2100 AC 10/08 PO 2001 Montelukast Sodium 10 MG DAILY 10/07 0900 AC 10/09 PO 1033 Nystatin 1 FARAZ TID 10/09 1032 AC TOP Omeprazole 40 MG DAILY AC 10/06 1605 AC 10/06 PO 1853 Phosphate 250 MG PC AND AT BEDTIME 10/08 1300 AC 10/09 PO 10/09 1801 1033 Review of Systems Review of Systems All Other Systems: Reviewed and Negative Comments The patient is a poor historian. 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 spouse Services at Home: None Primary Language: Hong Konger Smoking Status: Never Smoked ETOH Use: denies use Illicit Drug Use: denies illicit drug use Living Will? yes Power of Inspector Process/HCP? 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 Ambulation: walker (currently nonambulatory) IADLs Needs Assist: shopping, housework, finances, food prep, telephone, transportation, medication admin. Exam & Diagnostic Data Last 24 Hrs of Vital Signs/I&O Vital Signs Date Time Temp Pulse Resp B/P B/P Pulse O2 O2 Flow FiO2 Mean Ox Delivery Rate 10/09 1033 88 161/74 10/09 0647 98.6 88 20 161/74 96 Room Air 10/08 2146 98.3 104 18 126/70 94 10/08 1612 Room Air 10/08 1437 98.2 97 18 132/68 96 Room Air Intake & Output 10/09 1600 10/09 0800 10/09 0000 Intake Total 120 40.6 Output Total Balance 120 40.6 Intake, IV 40.6 Intake, Oral 120 Patient 156 lb Weight Physical Exam: General Appearance: awake, no acute distress HEENT: Atraumatic, PERRLA, EOMI Neck: Supple, trachea midline, no JVD Cardiovascular: Normal S1, Normal S2, 3/6 systolic ejection murmur LUSB. Lungs: Clear to Auscultation, Normal Air Movement Abdomen: Normal Bowel Sounds, Soft, No Tenderness Extremities: B/L lower extremity swelling Last 48 Hrs of Labs/Romie: Laboratory Tests 10/09/17 1215: APTT 67 H 10/09/17 0651: CBC w Diff NO MAN DIFF REQ, RBC 3.76 L, MCV 77.0 L, MCH 25.1 L, MCHC 32.6 L, RDW 17.3 H, MPV 6.8 L, Gran % 51.9, Lymphocytes % 39.4, Monocytes % 3.8, Eosinophils % 4.5, Basophils % 0.4, Absolute Granulocytes 7.2 H, Absolute Lymphocytes 5.5 H, Absolute Monocytes 0.5, Absolute Eosinophils 0.6, Absolute Basophils 0.1 10/09/17 0335: APTT 56 H 10/08/17 2045: Magnesium 1.9, APTT 31 10/08/17 1138: APTT 102 *H 10/08/17 0300: Anion Gap 6, Estimated GFR > 60, BUN/Creatinine Ratio 8.6, Phosphorus 2.7, Magnesium 0.7 *L, APTT 49 H, CBC w Diff NO MAN DIFF REQ, RBC 3.60 L, MCV 76.7 L, MCH 24.7 L, MCHC 32.2 L, RDW 16.2 H, MPV 6.9 L, Gran % 47.9, Lymphocytes % 43.1, Monocytes % 4.9, Eosinophils % 3.8, Basophils % 0.3, Absolute Granulocytes 7.0 H, Absolute Lymphocytes 6.3 H, Absolute Monocytes 0.7 H, Absolute Eosinophils 0.6, Absolute Basophils 0 10/07/172034: Troponin I 0.02, [id number] Pept 956 H Microbiology 10/07 1645 STOOL: Clostridium difficile Toxin A & B - COMP Diagnostic Data Other Results CTA: 1. Pulmonary emboli, mostly affecting the left lung. 2. No acute abnormality of the abdomen or the pelvis. Assessment/Plan Impression/Plan: 1. Acute LLE DVT and PE, without hemodynamic compromise. It is unclear if this is provoked. 2. Stable respiratory status. 3. NSVT. 4. Advanced dementia. 5. Leukocytosis due to VTE most likely. 6. Electrolyte abnormalities. Recommendations: * Need to atempt to ascertain if the is a provoked VTE event - will change mcc management. * Need to assess fall risks - will also help with chosing longer term anticoagulation. * Follow up ID input. * Monitor off antibiotics. * Continue IV heparin. * Electrolyte repletion as needed. * Monitor hemodynamics. * Await ECHO. * DVT prophylaxis - on Heparin. Consult Acknowledgment - Thank you for your consult request.
[2017-10-09 15:22] VITALS: BP 130/80
--- NOTE | 2017-10-09 21:42 | ECHOCARDIOGRAM REPORT ---
RADHA BELLA Age: 86 : 1930 Gender: F Exam Date: 10/09/2017 12:24 Exam Location: 1 [address] Ht (in): 68 Wt (lb): 156 BSA: 1.85 BP: 150 / 84 Ordering Physician: Sandy Palma MD Referring Physician: Sandy Palma MD Technologist: Zofia Rodriguez [facility] Room Number: 184 Indications: Rhythm: Sinus Technical Quality: good FINDINGS Left Ventricle Normal left ventricular size, wall thickness and systolic function with no obvious regional wall motion abnormalities. Normal left ventricular diastolic filling pattern for age. The ejection fraction is visually estimated at 55 %. Right Ventricle The right ventricle is normal in size and function. Right Atrium The right atrium is normal in size. Left Atrium The left atrium is normal in size. The interatrial septum is intact. Mitral Valve The mitral valve leaflets are thickened and there is mild MAC, without significant valvular gradient. There is mild mitral regurgitation. 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 BETH is estimated at 1.12 cm2 and mean gradient is 12-15 mmHg. There is mild aortic regurgitation. Tricuspid Valve The tricuspid valve is normal in structure and function. There is mild tricuspid regurgitation. Pulmonary artery systolic pressure is normal (measured at 25 mmHg). Pulmonic Valve Structurally normal pulmonic valve. There is trace pulmonic regurgitation. Pericardium Normal pericardium without effusion. No pleural effusion. Great Vessels Normal aortic root dimension. The aortic arch and great vessels are well seen and are normal. CONCLUSIONS Normal left ventricular size, wall thickness and systolic function with no obvious regional wall motion abnormalities. The ejection fraction is visually estimated at 55 %. The right ventricle is normal in size and function. The mitral valve leaflets are thickened and there is mild MAC, without significant valvular gradient. There is mild mitral regurgitation. 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 BETH is estimated at 1.12 cm2 and mean gradient is 12-15 mmHg. There is mild aortic regurgitation. The tricuspid valve is normal in structure and function. There is mild tricuspid regurgitation. Pulmonary artery systolic pressure is normal (measured at 25 mmHg). Normal pericardium without effusion. Greta Alcantara M.D. (Electronically Signed) Final Date: 09 October 2017 21:40 MEASUREMENTS (Male / Female) Normal Values 2D ECHO LV Diastolic Diameter PLAX 4.0 cm 4.2 - 5.9 / 3.9 - 5.3 cm LV Systolic Diameter PLAX 2.8 cm 2.1 - 4.0 cm LV Fractional Shortening PLAX 30.0 % 25 - 46 % LV Ejection Fraction 2D Teich 57.8 % IVS Diastolic Thickness 1.0 cm LVPW Diastolic Thickness 0.9 cm LV Relative Wall Thickness 0.5 LVOT Diameter 2.0 cm Aortic Root Diameter 2.5 cm LA Systolic Diameter LX 2.3 cm 3.0 - 4.0 / 2.7 - 3.8 cm LA Volume 34.0 cm 18 - 58 / 22 - 52 cm DOPPLER AV Peak Velocity 244.0 cm/s AV Peak Gradient 23.8 mmHg AV Mean Velocity 171.0 cm/s AV Mean Gradient 13.0 mmHg AV Velocity Time Integral 47.7 cm LVOT Peak Velocity 82.7 cm/s LVOT Peak Gradient 2.7 mmHg LVOT Mean Velocity 61.6 cm/s LVOT Mean Gradient 2.0 mmHg LVOT Velocity Time Integral 15.6 cm LVOT Stroke Volume 49.0 cm AV Area Cont Eq vti 1.0 cm AV Area Cont Eq pk 1.1 cm Mitral E Point Velocity 99.2 cm/s Mitral A Point Velocity 133.0 cm/s Mitral E to A Ratio 0.7 MV Deceleration Time 209.0 ms TR Peak Velocity 247.0 cm/s TR Peak Gradient 24.4 mmHg PV Peak Velocity 126.0 cm/s PV Peak Gradient 6.4 mmHg LV E' Lateral Velocity 10.1 cm/s Mitral E to LV E' Lateral Ratio 9.8 LV E' Septal Velocity 9.3 cm/s Mitral E to LV E' Septal Ratio 10.7
[2017-10-09 22:14] VITALS: BP 144/72
[2017-10-10 00:51] LABS: PTT 103 SEC (25-37)
[2017-10-10 06:39] VITALS: BP 138/70
--- NOTE | 2017-10-10 08:01 | PN- CRCU ---
Subjective HPI/Critical Care Issues: The patient is awake and answering questions. She is irritable this morning and states she is in a bad mood, and feels lousy. She complained of feeling cold and was wrapped with a blanket. Her mood improved after this. She is not able to provide any contributing history due to her advanced dementia and current clinical state. Objective Current Medications: Current Medications Sig/Shaquille Start time Last Medication Dose Route Stop Time Status Admin Acetaminophen 650 MG Q6PRN PRN 10/06 1600 AC PO Aspirin Buffered 81 MG DAILY 10/07 0900 AC 10/09 PO 1033 Heparin Sodium 25,000 UNIT Q24H 10/07 1945 AC 10/09 (Porcine) IV 1450 Sodium Chloride 500 ML Insulin Aspart 0 TIDAC 10/06 1700 AC 10/08 SC 1029 Lactobacillus 1 CAP DAILY 10/06 1604 AC 10/09 Acidophilus PO 1033 Lisinopril 2.5 MG DAILY 10/06 1604 AC 10/09 PO 1033 Lorazepam 0.5 MG BID 10/06 2100 AC 10/09 PO 10/13 2058 2007 Methimazole 5 MG DAILY 10/07 0900 AC 10/09 PO 1033 Mirtazapine 15 MG QPM 10/06 2100 AC 10/09 PO 2007 Montelukast Sodium 10 MG DAILY 10/07 0900 AC 10/09 PO 1033 Nystatin 1 FARAZ TID 10/09 1032 AC 10/09 TOP 2007 Omeprazole 40 MG DAILY AC 10/06 1605 AC 10/06 PO 1853 Phosphate 250 MG PC AND AT BEDTIME 10/08 1300 DC 10/09 PO 10/09 1801 1726 Vital Signs & I&O Last 24 Hrs of Vitals and I&O: Vital Signs Date Time Temp Pulse Resp B/P B/P Pulse O2 O2 Flow FiO2 Mean Ox Delivery Rate 10/10 0639 97.2 98 20 138/70 95 Room Air 10/09 2214 98.4 100 20 144/72 95 Room Air 10/09 1600 Room Air 10/09 1522 98.6 96 20 130/80 95 Room Air 10/09 1033 88 161/74 Intake & Output 10/10 0800 10/10 0000 10/09 1600 Intake Total 200 100 743.6 Output Total Balance 200 100 743.6 Intake, IV 263.6 Intake, Oral 200 100 480 Number 2 3 Bowel Movements Patient 153 lb Weight Physical Exam: General Appearance: awake, no acute distress HEENT: Atraumatic Neck: Supple, trachea midline, no JVD Cardiovascular: Normal S1, Normal S2, 3/6 systolic murmur Lungs: Clear to Auscultation, Normal Air Movement Abdomen: Normal Bowel Sounds, Soft, No Tenderness Extremities: Bilateray lower extremity swelling, symmetric Results Last 24 Hrs of Lab Results: Laboratory Tests 10/10/17 0740: Magnesium Pending, CBC w Diff Pending, WBC Pending, RBC Pending, Hgb Pending, Hct Pending, MCV Pending, MCH Pending, MCHC Pending, RDW Pending, Plt Count Pending, MPV Pending 10/10/17 0020: APTT 103 *H 10/09/17 1215: APTT 67 H Impression/Plan Impression/Plan Impression/Plan: 1. Acute LLE DVT and PE, without hemodynamic compromise. It is unclear if this is provoked. 2. Stable respiratory status. 3. NSVT. 4. Advanced dementia. 5. Leukocytosis due to VTE most likely. 6. Electrolyte abnormalities. Recommendations: * Ascertain if the is a provoked VTE event - will change terminal operator management. * Need to assess fall risks - will also help with chosing longer term anticoagulation. * Continue IV heparin pending decision about anticoagulation. * Follow up ID input. * Monitor off antibiotics. * Electrolyte repletion as needed. * Monitor hemodynamics. * Await ECHO. * DVT prophylaxis - on Heparin. * Considering the patient's advanced age, comorbidities and dementia, I would consider having a goals of care discussion and palliative care consultation.
[2017-10-10 08:19] LABS: ABSOLUTE BASOPHIL COUNT 0.1 /CUMM (0.0-0.2); ABSOLUTE EOSINOPHIL COUNT 0.5 /CUMM (0.0-0.7); ABSOLUTE GRANULOCYTE CT 7.5 /CUMM (1.4-6.5); ABSOLUTE LYMPH COUNT 5.4 /CUMM (1.2-3.4); ABSOLUTE MONOCYTE COUNT 0.6 /CUMM (0.10-0.60); BASOPHIL % 0.4 % (0.0-2.0); EOSINOPHIL % 3.3 % (0-5); GRANULOCYTE % 53.3 % (42.2-75.2); HEMATOCRIT 31.6 % (37-47); MEAN CORPUSCULAR HGB CONC 32.8 G/DL (33.0-37.0); MEAN CORPUSCULAR VOLUME 76.3 FL (81.0-99.0); MEAN PLATELET VOLUME 6.6 FL (7.4-10.4); PLATELET COUNT 317 /CUMM (130-400); RBC DISTRIBUTION WIDTH 17.1 % (11.5-14.5); RED BLOOD CELL CT 4.14 /CUMM (4.20-5.40)
--- NOTE | 2017-10-10 09:36 | PN- Housestaff ---
Subjective Follow-up For: BL Pulm embolism Tele-Events Since Last Visit: Normal sinus rhythm. Heart rate 85-101. Occasional PVCs Subjective: Patient was seen and examined lying comfortably in bed this morning. She reports that she feels much better. She does not have any complaints. No acute events overnight. Review of Systems Constitutional: Reports: see HPI. Objective Last 24 Hrs of Vital Signs/I&O Vital Signs Date Time Temp Pulse Resp B/P B/P Pulse O2 O2 Flow FiO2 Mean Ox Delivery Rate 10/10 1440 98.8 101 26 140/84 96 10/10 0918 98 138/70 10/10 0639 97.2 98 20 138/70 95 Room Air 10/09 2214 98.4 100 20 144/72 95 Room Air Intake & Output 10/10 1600 10/10 0800 10/10 0000 Intake Total 250 200 100 Output Total Balance 250 200 100 Intake, Oral 250 200 100 Number 1 2 Bowel Movements Patient 153 lb Weight Physical Exam General Appearance: Alert, Oriented X3, Cooperative, No Acute Distress Other Physical Findings: General Appearance: Patient seen and examined lying comfortably in bed in no acute distress. Alert, Oriented X3, Cooperative, No Acute Distress Skin: No Breakdown Skin Temp/Moisture Exam: Warm/Dry Sepsis Skin Exam (color): Normal for Ethnicity HEENT: Atraumatic, Mucous Membr. moist/pink Neck: Supple, No JVD, No thryomegaly, +2 Carotid Pulse wo Bruit Lymphatic: Axillary nl, Cervical nl Cardiovascular: Regular Rate, Normal S1, Normal S2, No Murmurs Lungs: CTA, No w/r/r Abdomen: Normal Bowel Sounds, Soft, No Tenderness, No Hepatospenomegaly Neurological: Normal Speech, Strength at 5/5 X4 Ext, Normal Tone, Sensation Intact, Cranial Nerves 3-12 NL, Reflexes 2+ Extremities: No Clubbing, No Cyanosis, No edema,Normal Pulses, legs tender to touch bilaterally Vascular: Pulses Symmetrical Assessment/Plan Assessment: Ms. Alvarado is a 86yo F w/ PMH of baseline [place] dementia, hyperthyrodism w/ multiple thyroid nodules, HTN, Anxiety, T2DM who was recently discharged from [facility] 22 days ago on 09/13/2017 after being treated for about 6 days for a UTI. She was discharged to a short-term rehab but presented back to the ED for concerns of worsening leukocytosis and hypokalemia. She is being treated for positive pulmonary embolus and left leg DVT. Problem List: #Left Leg DVT #Bilateral Pulmonary Emboli #Leukocytosis - Resolving #Hypomagnesemia - Resolved #Hypokalemia - Resolved Plan: - Continue heparin drip, need to discuss plan for long-term anticoagulation considering that this was an unprovoked versus a provoked VTE event and keeping in mind her fall risk - Continue to monitor O2 sats - pending echo -Antibiotics have been discontinued -Vanessa to monitor Mg and replete as necessary -Considering the patient's advanced age, comorbidities and dementia, I would consider having a goals of care discussion and palliative care consultation. Problem List: 1. Bilateral pulmonary embolism Pain Ratin Pain Location: b/l legs Pain Goal: Pain 4 or less Pain Plan: follow pain pathway Tomorrow's Labs & Rationales: cbc, bep
--- NOTE | 2017-10-10 12:28 | PN- Att Addend ---
Attending Addendum Attending Brief Note Mrs. Alvarado was interviewed and examined with the help of her 2 daughters who were present. Her EMR was reviewed. She has no complaints other than being in a bad mood. She is afebrile with stable vital signs. She continues to oxygenate well on room air. She is in no acute distress. Pulmonary exam is clear with equal breath sounds. Heart exam reveals a regular rate and rhythm with a 2/6 systolic murmur. Her abdomen is benign. CBCs essentially unchanged. Renal function is stable and acceptable. Electrolytes show hypomagnesemia. We are continuing full anticoagulation with intravenous heparin. Dr. Magallanes's input is greatly appreciated. I agree that a family conference should be arranged in the near future to determine our course of therapy. We should replete her magnesium. We should also continue her other therapeutic modalities.
[2017-10-10 14:40] VITALS: BP 140/84
[2017-10-10 16:48] LABS: PTT > 120 SEC (25-37)
[2017-10-10 22:17] VITALS: BP 140/80
[2017-10-11 01:51] LABS: PTT 28 SEC (25-37)
--- NOTE | 2017-10-11 06:23 | PN- Housestaff ---
Subjective Follow-up For: BL Pulm embolism Subjective: Patient is resting comfortably. She had no complaints today. No events overnight and no events on telemetry. Review of Systems Constitutional: Reports: see HPI. Objective Last 24 Hrs of Vital Signs/I&O Vital Signs Date Time Temp Pulse Resp B/P B/P Pulse O2 O2 Flow FiO2 Mean Ox Delivery Rate 10/11 2210 98.7 103 20 120/60 95 Room Air 10/11 1431 98.0 106 18 132/88 95 10/11 0945 98 172/80 96 Room Air 10/11 0800 Room Air 10/11 0721 98.4 79 20 140/80 94 Room Air Intake & Output 10/12 0800 10/12 0000 10/11 1600 Intake Total 200 612 Output Total Balance 200 612 Intake, IV 292 Intake, Oral 200 320 Number 1 Bowel Movements Patient 156 lb 150 lb Weight Weight Bed scale Measurement Method Physical Exam General Appearance: No Acute Distress Skin Temp/Moisture Exam: Warm/Dry HEENT: Atraumatic Neck: Supple, No JVD, +2 Carotid Pulse wo Bruit Cardiovascular: Normal S1, Normal S2 Lungs: Clear to Auscultation Abdomen: Normal Bowel Sounds, Soft, No Tenderness Extremities: No Cyanosis, BL LE edema, greater on right Current Medications: Current Medications Sig/Shaquille Start time Last Medication Dose Route Stop Time Status Admin Acetaminophen 650 MG Q6PRN PRN 10/06 1600 AC PO Apixaban 10 MG BID 10/11 1600 AC 10/11 PO 1751 Aspirin Buffered 81 MG DAILY 10/07 0900 AC 10/11 PO 0947 Heparin Sodium 0 .STK-MED ONE 10/11 0307 DC (Porcine) .ROUTE Heparin Sodium 25,000 UNIT Q24H 10/07 1945 DC 10/11 (Porcine) IV 0948 Sodium Chloride 500 ML Insulin Aspart 0 TIDAC 10/06 1700 AC 10/11 SC 1751 Lactobacillus 1 CAP DAILY 10/06 1604 AC 10/11 Acidophilus PO 0947 Lisinopril 2.5 MG DAILY 10/06 1604 AC 10/11 PO 0947 Lorazepam 0.5 MG BID 10/06 2100 AC 10/11 PO 10/13 2059 1925 Magnesium Sulfate 1 GM Q2H 10/11 1130 DC 10/11 Dextrose/Water 100 ML IV 10/11 1529 1525 Methimazole 5 MG DAILY 10/07 0900 AC 10/11 PO 0947 Mirtazapine 15 MG QPM 10/06 2100 AC 10/11 PO 1925 Montelukast Sodium 10 MG DAILY 10/07 0900 AC 10/11 PO 0947 Nystatin 1 FARAZ TID 10/09 1032 10/11 TOP 1926 Omeprazole 40 MG DAILY AC 10/06 1605 AC 10/11 PO 0653 Last 24 Hrs of Lab/Romie Results Last 24 Hrs of Labs/Mics: Laboratory Tests 10/11/17 1603: APTT 41 H 10/11/17 0930: APTT Cancelled 10/11/17 0640: Anion Gap 10, Estimated GFR > 60, BUN/Creatinine Ratio 5.0 L, Magnesium 1.3 L, APTT > 120 *H, CBC w Diff NO MAN DIFF REQ, RBC 4.38, MCV 76.8 L, MCH 25.2 L, MCHC 32.8 L, RDW 17.0 H, MPV 7.2 L, Gran % 55.1, Lymphocytes % 37.8, Monocytes % 3.3, Eosinophils % 3.3, Basophils % 0.5, Absolute Granulocytes 9.7 H, Absolute Lymphocytes 6.7 H, Absolute Monocytes 0.6, Absolute Eosinophils 0.6 , Absolute Basophils 0.1 Assessment/Plan Assessment: Ms. Alvarado is a 86yo F w/ PMH of baseline [place] dementia, hyperthyrodism w/ multiple thyroid nodules, HTN, Anxiety, T2DM who was recently discharged from [facility] 22 days ago on 09/13/2017 after being treated for about 6 days for a UTI. She was discharged to a short-term rehab but presented back to the ED for concerns of worsening leukocytosis and hypokalemia. She is being treated for positive pulmonary embolus and left leg DVT. Problem List: #Left Leg DVT #Bilateral Pulmonary Emboli #Leukocytosis - Resolving #Hypomagnesemia - Resolved #Hypokalemia - Resolved Plan: -Started on Eliquis 10mg BID -Continue to monitor O2 sats -Pending echo -Follow off antibiotics -Continue to monitor Mg and replete as necessary DVT ppx Full Code Problem List: 1. Bilateral pulmonary embolism Pain Ratin Pain Location: n/a Pain Goal: Remain pain free Pain Plan: per pathway Tomorrow's Labs & Rationales: CBC
[2017-10-11 07:21] VITALS: BP 140/80
[2017-10-11 08:11] LABS: ABSOLUTE BASOPHIL COUNT 0.1 /CUMM (0.0-0.2); ABSOLUTE EOSINOPHIL COUNT 0.6 /CUMM (0.0-0.7); ABSOLUTE GRANULOCYTE CT 9.7 /CUMM (1.4-6.5); ABSOLUTE LYMPH COUNT 6.7 /CUMM (1.2-3.4); ABSOLUTE MONOCYTE COUNT 0.6 /CUMM (0.10-0.60); BASOPHIL % 0.5 % (0.0-2.0); EOSINOPHIL % 3.3 % (0-5); GRANULOCYTE % 55.1 % (42.2-75.2); HEMATOCRIT 33.7 % (37-47); MEAN CORPUSCULAR HGB 25.2 PG (27.0-31.0); MEAN CORPUSCULAR HGB CONC 32.8 G/DL (33.0-37.0); MEAN CORPUSCULAR VOLUME 76.8 FL (81.0-99.0); MEAN PLATELET VOLUME 7.2 FL (7.4-10.4); PLATELET COUNT 346 /CUMM (130-400); RED BLOOD CELL CT 4.38 /CUMM (4.20-5.40); WHITE BLOOD CELL COUNT 17.6 /CUMM (4.8-10.8)
[2017-10-11 08:35] LABS: PTT > 120 SEC (25-37)
[2017-10-11 09:45] VITALS: BP 172/80
--- NOTE | 2017-10-11 10:48 | PN- Infect Dx ---
Subjective Subjective: Afebrile. She notes mild abdominal discomfort, but she has had no diarrhea reported. She denies any cough, shortness of breath or urinary symptoms. Objective Last 24 Hrs of Vital Signs/I&O Vital Signs Date Time Temp Pulse Resp B/P B/P Pulse O2 O2 Flow FiO2 Mean Ox Delivery Rate 10/11 0945 98 172/80 96 Room Air 10/11 0721 98.4 79 20 140/80 94 Room Air 10/10 2217 98.9 105 22 140/80 96 Room Air 10/10 1440 98.8 101 26 140/84 96 Intake & Output 10/11 1600 10/11 0800 10/11 0000 Intake Total 220 110 Output Total Balance 220 110 Intake, Oral 220 110 Number 1 Bowel Movements Patient 150 lb Weight Physical Exam Other Physical Findings: She appears comfortable in no acute distress Lungs are clear Heart regular rhythm with a 3/6 systolic ejection murmur Abdomen is soft, nontender with positive bowel sounds Extremities no cyanosis, clubbing or edema Results Last 24 Hours of Lab Results: Laboratory Tests 10/11 10/11 10/11 0930 0640 0120 Chemistry Sodium (137 - 145 mmol/L) 135 L Potassium (3.5 - 5.1 mmol/L) 4.4 Chloride (98 - 107 mmol/L) 100 Carbon Dioxide (22 - 30 mmol/L) 25 Anion Gap (5 - 16) 10 BUN (7 - 17 mg/dL) 4 L Creatinine (0.5 - 1.0 mg/dL) 0.8 Estimated GFR (>60 ml/min) > 60 BUN/Creatinine Ratio (7 - 25 %) 5.0 L Magnesium (1.6 - 2.3 mg/dL) 1.3 L Coagulation APTT (25 - 37 SEC) Cancelled > 120 *H 28 Hematology CBC w Diff NO MAN DIFF REQ WBC (4.8 - 10.8 /CUMM) 17.6 H RBC (4.20 - 5.40 /CUMM) 4.38 Hgb (12.0 - 16.0 G/DL) 11.1 L Hct (37 - 47 %) 33.7 L MCV (81.0 - 99.0 FL) 76.8 L MCH (27.0 - 31.0 PG) 25.2 L MCHC (33.0 - 37.0 G/DL) 32.8 L RDW (11.5 - 14.5 %) 17.0 H Plt Count (130 - 400 /CUMM) 346 MPV (7.4 - 10.4 FL) 7.2 L Gran % (42.2 - 75.2 %) 55.1 Lymphocytes % (20.5 - 51.1 %) 37.8 Monocytes % (1.7 - 9.3 %) 3.3 Eosinophils % (0 - 5 %) 3.3 Basophils % (0.0 - 2.0 %) 0.5 Absolute Granulocytes (1.4 - 6.5 /CUMM) 9.7 H Absolute Lymphocytes (1.2 - 3.4 /CUMM) 6.7 H Absolute Monocytes (0.10 - 0.60 /CUMM) 0.6 Absolute Eosinophils (0.0 - 0.7 /CUMM) 0.6 Absolute Basophils (0.0 - 0.2 /CUMM) 0.1 10/10 1450 Coagulation APTT (25 - 37 SEC) > 120 *H Last 24 Hours of Romie Results: No new cultures Assessment/Plan ID Impression: Stable, with her temperatures remaining normal, but with her white blood cell count increased today, of unclear etiology. With her recent history of C. difficile a relapse is possible, particularly with the complaint of abdominal discomfort today, though she has not had any diarrhea reported. Her recent urine culture was positive for Lo, but this is of unclear significance and do not feel that it requires treatment. Of note she appears to have had a persistent leukocytosis in the past, suggesting the possibility of an underlying process, though, given her age and dementia, do not feel further workup for this would be warranted. She remains on Heparin for the recently diagnosed left leg DVT and pulmonary emboli, which could explain some of her leukocytosis. Suggestion: 1. Repeat stool for C. difficile if she has recurrent diarrhea 2. Further management of her pulmonary emboli/DVT per Pulmonary and Medicine 3. Continue to follow off antibiotics
--- NOTE | 2017-10-11 13:27 | PN- Att Addend ---
Attending Addendum Attending Brief Note Patient looking better today, daughter at the bedside. Loose BM. Vital sighns stable no fever WBC 17.000. No other changes on physical. Aprecciate pulmonary and ID imputs. Will start peacock anticoagulation. not clear why white count is higher today. Intake & Output 10/11 1600 10/11 0400 10/10 1600 10/10 0400 10/09 1600 10/09 0400 Intake Total 220 110 450 100 863.6 40.6 Output Total Balance 220 110 450 100 863.6 40.6 Intake, IV 263.6 40.6 Intake, Oral 220 110 450 100 600 Number 1 1 2 3 Bowel Movements Patient 150 lb 153 lb 156 lb Weight Current Medications Sig/Shaquille Start time Last Medication Dose Route Stop Time Status Admin Acetaminophen 650 MG Q6PRN PRN 10/06 1600 AC PO Aspirin Buffered 81 MG DAILY 10/07 09 AC 10/11 PO 0947 Heparin Sodium 0 .STK-MED ONE 10/11 0307 DC (Porcine) .ROUTE Heparin Sodium 25,000 UNIT Q24H 10/07 1945 AC 10/11 (Porcine) IV 0948 Sodium Chloride 500 ML Insulin Aspart 0 TIDAC 10/06 1700 AC 10/11 SC 1256 Lactobacillus 1 CAP DAILY 10/06 1604 AC 10/11 Acidophilus PO 0947 Lisinopril 2.5 MG DAILY 10/06 1604 AC 10/11 PO 0947 Lorazepam 0.5 MG BID 10/06 2100 AC 10/11 PO 10/13 2059 0953 Magnesium Oxide 400 MG ONE ONE 10/10 2100 DC 10/10 PO 10/10 2101 2114 Magnesium Sulfate 1 GM Q2H 10/11 1130 AC 10/11 Dextrose/Water 100 ML IV 10/11 1529 1225 Magnesium Sulfate 1 GM Q2H 10/10 2045 DC Dextrose/Water 100 ML IV 10/11 0244 Methimazole 5 MG DAILY 10/07 09 AC 10/11 PO 0947 Mirtazapine 15 MG QPM 10/06 2100 AC 10/10 PO 1857 Montelukast Sodium 10 MG DAILY 10/07 0900 AC 10/11 PO 0947 Nystatin 1 FARAZ TID 10/09 1032 AC 10/11 TOP 0953 Omeprazole 40 MG DAILY AC 10/06 1605 AC 10/11 PO 0653 Laboratory Tests 10/11/17 0930: APTT Cancelled 10/11/17 0640: Anion Gap 10, Estimated GFR > 60, BUN/Creatinine Ratio 5.0 L, Magnesium 1.3 L, APTT > 120 *H, CBC w Diff NO MAN DIFF REQ, RBC 4.38, MCV 76.8 L, MCH 25.2 L, MCHC 32.8 L, RDW 17.0 H, MPV 7.2 L, Gran % 55.1, Lymphocytes % 37.8, Monocytes % 3.3, Eosinophils % 3.3, Basophils % 0.5, Absolute Granulocytes 9.7 H, Absolute Lymphocytes 6.7 H, Absolute Monocytes 0.6, Absolute Eosinophils 0.6 , Absolute Basophils 0.1 10/11/17 0120: APTT 28 10/10/17 1450: APTT > 120 *H 10/10/17 0740: Magnesium 1.5 L, CBC w Diff MAN DIFF ORDERED, RBC 4.14 L, MCV 76.3 L, MCH 25.0 L, MCHC 32.8 L, RDW 17.1 H, MPV 6.6 L, Gran % 53.3, Lymphocytes % 38.6, Monocytes % 4.4, Eosinophils % 3.3, Basophils % 0.4, Absolute Granulocytes 7.5 H, Absolute Lymphocytes 5.4 H, Absolute Monocytes 0.6, Absolute Eosinophils 0.5 , Absolute Basophils 0.1, Platelet Estimate VERIFIED BY SMEAR, Polychromasia 1+, Hypochromic-Microcytic 1+, Poikilocytosis 1+, Anisocytosis 1+, Microcytic Cells 1+, Ovalocytes 1+, Melvin Cells 1+ 10/10/17 0020: APTT 103 *H 10/09/17 1215: APTT 67 H 10/09/17 0651: CBC w Diff NO MAN DIFF REQ, RBC 3.76 L, MCV 77.0 L, MCH 25.1 L, MCHC 32.6 L, RDW 17.3 H, MPV 6.8 L, Gran % 51.9, Lymphocytes % 39.4, Monocytes % 3.8, Eosinophils % 4.5, Basophils % 0.4, Absolute Granulocytes 7.2 H, Absolute Lymphocytes 5.5 H, Absolute Monocytes 0.5, Absolute Eosinophils 0.6, Absolute Basophils 0.1 10/09/17 0335: APTT 56 H 10/08/17 2045: Magnesium 1.9, APTT 31 Vital Signs Date Time Temp Pulse Resp B/P B/P Pulse O2 O2 Flow FiO2 Mean Ox Delivery Rate 10/11 0945 98 172/80 96 Room Air 10/11 0721 98.4 79 20 140/80 94 Room Air 10/10 2217 98.9 105 22 140/80 96 Room Air 10/10 1440 98.8 101 26 140/84 96
[2017-10-11 14:31] VITALS: BP 132/88
[2017-10-11 17:08] LABS: PTT 41 SEC (25-37)
[2017-10-11 22:10] VITALS: BP 120/60
[2017-10-12 06:32] VITALS: BP 124/66
--- NOTE | 2017-10-12 07:02 | PN- Housestaff ---
Subjective Follow-up For: Bilateral pulmonary embolism Left leg DVT Leukocytosis Hypokalemia Tele-Events Since Last Visit: No overnight events. Patient remained in sinus rhythm with heart rate between [id number] Subjective: No overnight events. Patient remained afebrile overnight. Seen and examined this morning. patient is a poor historian and she was looking confused. Patient denied chest pain, palpitation, nausea, vomiting, chill, fever, abdominal pain dysuria. She was on room air maintaining saturation 97%. Patient has hard of hearing. Review of Systems Constitutional: Denies: chills, fever, weakness. EENTM: Reports: no symptoms. Cardiovascular: Denies: chest pain, palpitations, syncope. Respiratory: Denies: cough, short of breath, sputum production, stridor. Gastrointestinal: Denies: abdominal pain, diarrhea, nausea, vomiting. Genitourinary: Reports: no symptoms. Musculoskeletal: Reports: no symptoms. Neurological/Psychological: Reports: see HPI. Objective Last 24 Hrs of Vital Signs/I&O Intake & Output 10/12 1600 10/12 0800 10/12 0000 Intake Total 200 Output Total Balance 200 Intake, Oral 200 Patient 156 lb Weight Weight Bed scale Measurement Method Laboratory Tests 10/12 10/11 0655 1603 Coagulation APTT (25 - 37 SEC) 41 H Hematology CBC w Diff NO MAN DIFF REQ WBC (4.8 - 10.8 /CUMM) 13.9 H RBC (4.20 - 5.40 /CUMM) 4.11 L Hgb (12.0 - 16.0 G/DL) 10.1 L Hct (37 - 47 %) 31.4 L MCV (81.0 - 99.0 FL) 76.4 L MCH (27.0 - 31.0 PG) 24.7 L MCHC (33.0 - 37.0 G/DL) 32.3 L RDW (11.5 - 14.5 %) 17.4 H Plt Count (130 - 400 /CUMM) 350 MPV (7.4 - 10.4 FL) 6.6 L Gran % (42.2 - 75.2 %) 57.6 Lymphocytes % (20.5 - 51.1 %) 34.7 Monocytes % (1.7 - 9.3 %) 4.4 Eosinophils % (0 - 5 %) 3.0 Basophils % (0.0 - 2.0 %) 0.3 Absolute Granulocytes (1.4 - 6.5 /CUMM) 8.0 H Absolute Lymphocytes (1.2 - 3.4 /CUMM) 4.8 H Absolute Monocytes (0.10 - 0.60 /CUMM) 0.6 Absolute Eosinophils (0.0 - 0.7 /CUMM) 0.4 Absolute Basophils (0.0 - 0.2 /CUMM) 0 Vital Signs Date Time Temp Pulse Resp B/P B/P Pulse O2 O2 Flow FiO2 Mean Ox Delivery Rate 10/12 0632 98.4 99 20 124/66 95 Room Air 10/11 2210 98.7 103 20 120/60 95 Room Air 10/11 1431 98.0 106 18 132/88 95 Intake & Output 10/12 1600 10/12 0800 10/12 0000 Intake Total 200 Output Total Balance 200 Intake, Oral 200 Patient 156 lb Weight Weight Bed scale Measurement Method Physical Exam General Appearance: Alert, Cooperative Skin: No Rashes Skin Temp/Moisture Exam: Warm/Dry Sepsis Skin Exam (color): Normal for Ethnicity HEENT: Atraumatic, PERRLA, EOMI Neck: Supple Cardiovascular: Normal S1, Normal S2 Lungs: Clear to Auscultation Abdomen: Soft, No Tenderness Neurological: Normal Speech, Strength at 5/5 X4 Ext, Normal Tone Extremities: No Edema Current Medications: Current Medications Sig/Shaquille Start time Last Medication Dose Route Stop Time Status Admin Acetaminophen 650 MG Q6PRN PRN 10/06 1600 AC PO Apixaban 10 MG BID 10/11 1600 AC 10/12 PO 0926 Aspirin Buffered 81 MG DAILY 10/07 0900 AC 10/12 PO 0926 Heparin Sodium 25,000 UNIT Q24H 10/07 1945 DC 10/11 (Porcine) IV 0948 Sodium Chloride 500 ML Insulin Aspart 0 TIDAC 10/06 1700 AC 10/12 SC 1219 Lactobacillus 1 CAP DAILY 10/06 1604 AC 10/12 Acidophilus PO 0926 Lisinopril 2.5 MG DAILY 10/06 1604 AC 10/12 PO 0926 Lorazepam 0.5 MG BID 10/06 2100 AC 10/12 PO 10/13 2058 0926 Magnesium Sulfate 1 GM Q2H 10/11 1130 DC 10/11 Dextrose/Water 100 ML IV 10/11 1529 1525 Methimazole 5 MG DAILY 10/07 0900 AC 10/12 PO 925 Mirtazapine 15 MG QPM 10/06 2100 AC 10/11 PO 1925 Montelukast Sodium 10 MG DAILY 10/07 0900 AC 10/12 PO 925 Nystatin 1 FARAZ TID 10/09 1032 AC 10/12 TOP 0930 Omeprazole 40 MG DAILY AC 10/06 1605 AC 10/11 PO 0653 Last 24 Hrs of Lab/Romie Results Last 24 Hrs of Labs/Mics: Laboratory Tests 10/12/17 0655: CBC w Diff NO MAN DIFF REQ, RBC 4.11 L, MCV 76.4 L, MCH 24.7 L, MCHC 32.3 L, RDW 17.4 H, MPV 6.6 L, Gran % 57.6, Lymphocytes % 34.7, Monocytes % 4.4, Eosinophils % 3.0, Basophils % 0.3, Absolute Granulocytes 8.0 H, Absolute Lymphocytes 4.8 H, Absolute Monocytes 0.6, Absolute Eosinophils 0.4, Absolute Basophils 0 10/11/17 1603: APTT 41 H Assessment/Plan Assessment: 86 YO F with PMH of baseline [place] dementia, hyperthyrodism w/ multiple thyroid nodules, HTN, Anxiety, T2DM who was recently discharged from [facility] 22 days ago on 09/13/2017 after being treated for about 6 days for a UTI. She was discharged to a short-term rehab but now presents back to the ED for concerns of worsening leukocytosis and hypokalemia. Patient went bilateral pulmonary embolism and left leg DVT. Follow the patient on telemetry floor for following problems; Bilateral pulmonary embolism and left leg DVT: -Patient remained hemodynamically stable and she is on room air maintaining saturation 97%. -Patient is on Eliquis 10 mg twice daily for 7 days and then she will get 5 mg twice daily. -Patient will follow hematology as outpatient for further workup coagulation workup. -Patient will follow pulmonology as outpatient. Leukocytosis: -Possibly reactionary after pulmonary embolism. -Patient remained afebrile and her leukocytosis is getting better. -Patient is being followed off antibiotics. -Patient's C. difficile remained negative and she did not have any complaint of diarrhea. History of hypertension: -Continue lisinopril History of diabetes: -Continue Accu-Cheks, her fasting blood sugar level this morning was 153 -Continue insulin NovoLog according to sliding scale History of hyperthyroidism: -Continue methimazole DVT prophylaxis: Mechanical and patient is on eliquis CODE STATUS: Full code Problem List: 1. Bilateral pulmonary embolism Pain Ratin Pain Location: none Pain Goal: Remain pain free Pain Plan: pain pathway Tomorrow's Labs & Rationales: cbc
[2017-10-12 08:17] LABS: ABSOLUTE BASOPHIL COUNT 0 /CUMM (0.0-0.2); ABSOLUTE EOSINOPHIL COUNT 0.4 /CUMM (0.0-0.7); ABSOLUTE LYMPH COUNT 4.8 /CUMM (1.2-3.4); ABSOLUTE MONOCYTE COUNT 0.6 /CUMM (0.10-0.60); BASOPHIL % 0.3 % (0.0-2.0); GRANULOCYTE % 57.6 % (42.2-75.2); HEMATOCRIT 31.4 % (37-47); MEAN CORPUSCULAR HGB 24.7 PG (27.0-31.0); MEAN CORPUSCULAR HGB CONC 32.3 G/DL (33.0-37.0); MEAN CORPUSCULAR VOLUME 76.4 FL (81.0-99.0); MEAN PLATELET VOLUME 6.6 FL (7.4-10.4); PLATELET COUNT 350 /CUMM (130-400); RBC DISTRIBUTION WIDTH 17.4 % (11.5-14.5); RED BLOOD CELL CT 4.11 /CUMM (4.20-5.40); WHITE BLOOD CELL COUNT 13.9 /CUMM (4.8-10.8)
--- NOTE | 2017-10-12 09:11 | PN- Pulmonary ---
Subjective HPI/Critical Care Issues: The patient remains awake and confused. She does not offer specific complaints. The patient denies any shortness of breath, cough or chest pain. She is on room air and has a stable respiratory status. She has been transitioned off heparin and is now on Eliquis. Objective Current Medications: Current Medications Sig/Shaquille Start time Last Medication Dose Route Stop Time Status Admin Acetaminophen 650 MG Q6PRN PRN 10/06 1600 AC PO Apixaban 10 MG BID 10/11 1600 AC 10/11 PO 1751 Aspirin Buffered 81 MG DAILY 10/07 0900 AC 10/11 PO 0947 Heparin Sodium 25,000 UNIT Q24H 10/07 1945 DC 10/11 (Porcine) IV 0948 Sodium Chloride 500 ML Insulin Aspart 0 TIDAC 10/06 1700 AC 10/12 SC 0825 Lactobacillus 1 CAP DAILY 10/06 1604 AC 10/11 Acidophilus PO 0947 Lisinopril 2.5 MG DAILY 10/06 1604 AC 10/11 PO 0947 Lorazepam 0.5 MG BID 10/06 2100 AC 10/11 PO 10/13 2059 1925 Magnesium Sulfate 1 GM Q2H 10/11 1130 DC 10/11 Dextrose/Water 100 ML IV 10/11 1529 1525 Methimazole 5 MG DAILY 10/07 0900 AC 10/11 PO 0947 Mirtazapine 15 MG QPM 10/06 2100 AC 10/11 PO 1925 Montelukast Sodium 10 MG DAILY 10/07 0900 AC 10/11 PO 0947 Nystatin 1 FARAZ TID 10/09 1032 AC 10/11 TOP 1926 Omeprazole 40 MG DAILY AC 10/06 1605 AC 10/11 PO 0653 Vital Signs & I&O Last 24 Hrs of Vitals and I&O: Vital Signs Date Time Temp Pulse Resp B/P B/P Pulse O2 O2 Flow FiO2 Mean Ox Delivery Rate 10/12 0632 98.4 99 20 124/66 95 Room Air 10/11 2210 98.7 103 20 120/60 95 Room Air 10/11 1431 98.0 106 18 132/88 95 10/11 0945 98 172/80 96 Room Air Intake & Output 10/12 1600 10/12 0800 10/12 0000 Intake Total 200 Output Total Balance 200 Intake, Oral 200 Patient 156 lb Weight Weight Bed scale Measurement Method Physical Exam: General Appearance: awake, no acute distress HEENT: Atraumatic Neck: Supple, trachea midline, no JVD Cardiovascular: Normal S1, Normal S2, 3/6 systolic murmur Lungs: Clear to Auscultation, Normal Air Movement Abdomen: Normal Bowel Sounds, Soft, No Tenderness Extremities: Bilateral lower extremity swelling, symmetric Results Last 24 Hrs of Lab Results: Laboratory Tests 10/12/17 0655: CBC w Diff NO MAN DIFF REQ, RBC 4.11 L, MCV 76.4 L, MCH 24.7 L, MCHC 32.3 L, RDW 17.4 H, MPV 6.6 L, Gran % 57.6, Lymphocytes % 34.7, Monocytes % 4.4, Eosinophils % 3.0, Basophils % 0.3, Absolute Granulocytes 8.0 H, Absolute Lymphocytes 4.8 H, Absolute Monocytes 0.6, Absolute Eosinophils 0.4, Absolute Basophils 0 10/11/17 1603: APTT 41 H 10/11/17 0930: APTT Cancelled Impression/Plan Impression/Plan Impression/Plan: 1. Acute LLE DVT and PE, without hemodynamic compromise. It is unclear if this is provoked. 2. Stable respiratory status. 3. Advanced dementia. 5. Leukocytosis, no obvious source of infection, the patient is being followed off antibiotics. Stool is negative for C. difficile and blood cultures remain negative. Recommendations: * Continue Eliquis. * Appropriate duration of therapy is unknown as once again, it is unclear if the event is provoked. * The patient will need an outpatient evaluation to ensure no evidence of malignancy. * Follow off antibiotics. * Assessment for risk of falls. * Continue all supportive care. * Because the patient's respiratory status is stable on anticoagulation, I will sign off. Please call with any questions or issues.
--- NOTE | 2017-10-12 10:11 | PN- Att Addend ---
Attending Addendum Attending Brief Note No new issues. Started on the normal anticoagulation last evening. Vital signs are stable no fever. White count is 13 9. No other changes will check with infectious diseases if okay then we can start disposition plans. Intake & Output 10/12 1600 10/12 0400 10/11 1600 10/11 0400 10/10 1600 10/10 0400 Intake Total 200 832 110 450 100 Output Total Balance 200 832 110 450 100 Intake, IV 292 Intake, Oral 200 540 110 450 100 Number 2 1 2 Bowel Movements Patient 156 lb 150 lb 150 lb 153 lb Weight Weight Bed scale Measurement Method Current Medications Sig/Shaquille Start time Last Medication Dose Route Stop Time Status Admin Acetaminophen 650 MG Q6PRN PRN 10/06 1600 AC PO Apixaban 10 MG BID 10/11 1600 AC 10/12 PO 0926 Aspirin Buffered 81 MG DAILY 10/07 0900 AC 10/12 PO 0926 Heparin Sodium 25,000 UNIT Q24H 10/07 1945 DC 10/11 (Porcine) IV 0948 Sodium Chloride 500 ML Insulin Aspart 0 TIDAC 10/06 1700 AC 10/12 SC 0825 Lactobacillus 1 CAP DAILY 10/06 1604 AC 10/12 Acidophilus PO 0926 Lisinopril 2.5 MG DAILY 10/06 1604 AC 10/12 PO 0926 Lorazepam 0.5 MG BID 10/06 2100 AC 10/12 PO 10/13 2058 0926 Magnesium Sulfate 1 GM Q2H 10/11 1130 DC 10/11 Dextrose/Water 100 ML IV 10/11 1529 1525 Methimazole 5 MG DAILY 10/07 0900 AC 10/12 PO 0926 Mirtazapine 15 MG QPM 10/06 2100 AC 10/11 PO 1925 Montelukast Sodium 10 MG DAILY 10/07 0900 AC 10/12 PO 0926 Nystatin 1 FARAZ TID 10/09 1032 AC 10/12 TOP 0930 Omeprazole 40 MG DAILY AC 10/06 1605 AC 10/11 PO 0653 Laboratory Tests 10/12/17 0655: CBC w Diff NO MAN DIFF REQ, RBC 4.11 L, MCV 76.4 L, MCH 24.7 L, MCHC 32.3 L, RDW 17.4 H, MPV 6.6 L, Gran % 57.6, Lymphocytes % 34.7, Monocytes % 4.4, Eosinophils % 3.0, Basophils % 0.3, Absolute Granulocytes 8.0 H, Absolute Lymphocytes 4.8 H, Absolute Monocytes 0.6, Absolute Eosinophils 0.4, Absolute Basophils 0 10/11/17 1603: APTT 41 H 10/11/17 0930: APTT Cancelled 10/11/17 0640: Anion Gap 10, Estimated GFR > 60, BUN/Creatinine Ratio 5.0 L, Magnesium 1.3 L, APTT > 120 *H, CBC w Diff NO MAN DIFF REQ, RBC 4.38, MCV 76.8 L, MCH 25.2 L, MCHC 32.8 L, RDW 17.0 H, MPV 7.2 L, Gran % 55.1, Lymphocytes % 37.8, Monocytes % 3.3, Eosinophils % 3.3, Basophils % 0.5, Absolute Granulocytes 9.7 H, Absolute Lymphocytes 6.7 H, Absolute Monocytes 0.6, Absolute Eosinophils 0.6 , Absolute Basophils 0.1 10/11/17 0120: APTT 28 10/10/17 1450: APTT > 120 *H 10/10/17 0740: Magnesium 1.5 L, CBC w Diff MAN DIFF ORDERED, RBC 4.14 L, MCV 76.3 L, MCH 25.0 L, MCHC 32.8 L, RDW 17.1 H, MPV 6.6 L, Gran % 53.3, Lymphocytes % 38.6, Monocytes % 4.4, Eosinophils % 3.3, Basophils % 0.4, Absolute Granulocytes 7.5 H, Absolute Lymphocytes 5.4 H, Absolute Monocytes 0.6, Absolute Eosinophils 0.5 , Absolute Basophils 0.1, Platelet Estimate VERIFIED BY SMEAR, Polychromasia 1+, Hypochromic-Microcytic 1+, Poikilocytosis 1+, Anisocytosis 1+, Microcytic Cells 1+, Ovalocytes 1+, [place] Cells 1+ 10/10/17 0020: APTT 103 *H 10/09/17 1215: APTT 67 H Vital Signs Date Time Temp Pulse Resp B/P B/P Pulse O2 O2 Flow FiO2 Mean Ox Delivery Rate 10/12 0632 98.4 99 20 124/66 95 Room Air 10/11 2210 98.7 103 20 120/60 95 Room Air 10/11 1431 98.0 106 18 132/88 95
--- NOTE | 2017-10-12 10:41 | Discharge Summary ---
See Addendum Visit Information Visit Dates Admission Date: 10/08/17 Discharge Date: 10/13/17 Hospital Course Course Attending Physician: Ina NULL,Jhon Primary Care Physician: Ina NULL,[place] Hospital Course: Ms. Alvarado is a 86yo F w/ PMH of baseline [place] dementia, hyperthyrodism w/ multiple thyroid nodules, HTN, Anxiety, T2DM who was recently discharged from [facility] 22 days ago on 09/13/2017 after being treated for about 6 days for a UTI. She was discharged to a short-term rehab but presented back to the ED for concerns of worsening leukocytosis and hypokalemia. Patient was admitted to telemetry floor for the Mx of following issues; # Bilateral pulmonary embolism and left leg DVT; # Leukocytosis # NSVT # Hypomagnesemia # Hypokalemia - Resolved Bilateral pulmonary embolism and left leg DVT; Patient was initially started on IV heparin later switched to Eliquis 10 mg twice daily for 7 days and then she will get 5 mg twice daily. Remained hemodynamically stable. Cause of her PE and DVT. Patient will follow up with hematology and pulmonology as outpatient for further coagulation workup. Leukocytosis: Possibly likely reactionary from pulmonary embolism. Patient was initially started on IV ceftriaxone and p.o. vancomycin for UTI and C. difficile respectively(recieved for a day only) but were later discontinued as her diarrhea had resolved and did not have any urinary symptoms. Patient was followed off antibiotics. Patient remained afebrile and her leukocytosis trending down on discharge. NSVT; Patient had a 19 beat run of Vtach, likely from low Mag levels(0.7). Mag was monitored and repleted according. Hypokalemia; K was monitored and repleted accordingly.(4.4 at the time of discharge). History of hypertension: Lisinopril was continued. History of diabetes: Blood sugars remained stable on NovoLog sliding scale. Janumet was held. History of hyperthyroidism: Methimazole was continued. Allergies: Coded Allergies: No Known Allergies (09/07/17) Significant Procedures: XRY-PORTABLE CHEST XRAY IMPRESSION: 1. There are no acute cardiopulmonary findings. 2. Rightward deviation of the trachea is consistent with sequelae of enlarged left lobe of the thyroid gland. CT ABD & PELVIS W/O IV CONTRAS; CTA CHEST-PULMONARY EMBOLISM IMPRESSION: 1. Pulmonary emboli, mostly affecting the left lung. 2. No acute abnormality of the abdomen or the pelvis. US-EXT BILAT VENOUS DOPPLER IMPRESSION: Extensive deep vein thrombosis from the upper thigh through the popliteal vein. Calf veins are not visualized. ECHOCARDIOGRAM CONCLUSIONS Normal left ventricular size, wall thickness and systolic function with no obvious regional wall motion abnormalities. The ejection fraction is visually estimated at 55 %. The right ventricle is normal in size and function. The mitral valve leaflets are thickened and there is mild MAC, without significant valvular gradient. There is mild mitral regurgitation. 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 BETH is estimated at 1.12 cm2 and mean gradient is 12-15 mmHg. There is mild aortic regurgitation. The tricuspid valve is normal in structure and function. There is mild tricuspid regurgitation. Pulmonary artery systolic pressure is normal (measured at 25 mmHg). Normal pericardium without effusion. Disposition Summary Disposition Principal Diagnosis: # Bilateral pulmonary embolism and left leg DVT; # Leukocytosis # NSVT # Hypomagnesemia # Hypokalemia - Resolved Additional Diagnosis: Hx of DM, HTN and hyperthyroidism Discharge Disposition: SNF Discharge Instructions General Discharge Information Code Status: Full Code Patient's Diet: Carbohydrate Consistent(Diabetic) Patient's Activity: A stolerated Follow-Up Instructions/Appts: Patient advised to follow-up with the PCP, candy cooker helper and power generating plant operator after discharge. Medications at Discharge Discharge Medications: Stop taking the following medications: Sulfamethoxazole/Trimethoprim (Sulfamethoxazole-Tmp Ds Tablet) 800 MG-160 MG TABLET ORAL TWICE DAILY Qty = 8 Continue taking these medications: Aspirin (Ecotrin*) 81 MG TABLET. 1 Tablet ORAL DAILY Pantoprazole Sodium (Protonix) 40 MG TABLET.DR 1 Tablet ORAL DAILY Methimazole (Methimazole) 5 MG TABLET 1 Tablet ORAL DAILY Comments: LAST GINVE 09/13/17 @ 0900 Mirtazapine (Mirtazapine) 15 MG TABLET 1 Tablet ORAL Every night Lisinopril (Lisinopril) 2.5 MG TABLET 1 Tablet ORAL DAILY Montelukast Sodium (Singulair) 10 MG TABLET 1 Tablet ORAL DAILY Comments: LAST GIVEN 09/13/17 @ 0900 Lorazepam (Ativan) 0.5 MG TABLET 1 Tablet ORAL TWICE DAILY Comments: LAST GIVNE 09/13/17 @ 0800 Bacillus Coagulans/Inulin (Probiotic Formula Capsule) 1 BILLION CELL-250 MG CAPSULE 1 Capsule ORAL DAILY Cholecalciferol (Vitamin D3) 1,000 UNIT TABLET 1 Tablet ORAL DAILY Comments: LAST GIVEN 09/13/17 @ 0900 Sitagliptin Phos/Metformin HCl (Janumet 50-500 MG Tablet) 50 MG-500 MG TABLET 2 Tablet ORAL DAILY Qty = 180 Sitagliptin Phos/Metformin HCl (Janumet 50-1,000 MG Tablet) 50 MG-1,000 MG TABLET 1 Tablet ORAL Every night Start taking the following new medications: Apixaban (Eliquis) 5 MG TABLET 0 ORAL TWICE DAILY Qty = 45 No Refills Instructions: Take 2 tabs twice daily 10/17/17, then start taking 1 tab twice a day for 3-6 months. Copies To: Minerva NULL,Sandy
[2017-10-12] MEDS ORDERED: ELIQUIS5 M1 PO (13:24)
--- NOTE | 2017-10-12 13:26 | Patient Discharge Instructions ---
Discharge Instructions General Discharge Information You were seen/treated for: Bilateral PE and LLE DVT Special Instructions: Please follow up with your PCP and bicycle inspector within a week after discharge Will need an outpatient work up to rule out malignancy Diet Continue normal diet: Yes Recommended Diet: Diabetic Activity Full Activity/No Limits: Yes Activity Self Limited: Yes Acute Coronary Syndrome Inclusion Criteria At DC or during hospital stay patient has or had the following: ACS DIAGNOSIS No Discharge Core Measures Meds if any: Prescribed or Continued at Discharge Meds if any: NOT Prescribed or Continued at Discharge Congestive Heart Failure Inclusion Criteria At DC or during hospital stay patient has or had the following: CHF DIAGNOSIS No Discharge Core Measures Meds if any: Prescribed or Continued at Discharge Meds if any: NOT Prescribed or Continued at Discharge Cerebrovascular accident Inclusion Criteria At DC or during hospital stay patient has or had the following: CVA/TIA Diagnosis No Discharge Core Measures Meds if any: Prescribed or Continued at Discharge Meds if any: NOT Prescribed or Continued at Discharge Venous thromboembolism Inclusion Criteria VTE Diagnosis Yes VTE Type Pulmonary Embolism VTE Confirmed by (Test) CT CHEST ANGIOGRAM Discharge Core Measures - Per Current guidelines, there needs to be overlap - treatment for the first 5 days of Warfarin therapy. - If discharged on Warfarin prior to 5 days of - overlap therapy, the patient will need to be - assessed for post discharge needs including - *Post discharge parental anticoagulation - *Warfarin and/or parental anticoagulation education - *Follow up date to check INR post discharge At least 5 days overlap therapy as Inpatient No Meds if any: Prescribed or Continued at Discharge Note: Overlap Therapy is Warfarin and Anticoagulant Meds if any: NOT Prescribed or Continued at Discharge
[2017-10-12 14:59] VITALS: BP 140/80
[2017-10-13 06:26] VITALS: BP 130/78
--- NOTE | 2017-10-13 08:16 | PN- Housestaff ---
Subjective Follow-up For: Bilateral pulmonary embolism Left leg DVT Leukocytosis Hypokalemia Tele-Events Since Last Visit: No overnight events. Patient remained in sinus rhythm with heart rate 8290 Subjective: No overnight events. Patient remained afebrile. Seen and examined this morning. Patient is having hard of hearing and she is demented. Patient denied chest pain, palpitation, nausea, vomiting, chills, fever, abdominal pain dysuria. She is on room air maintaining saturation 93%. Patient was complaining of rash yesterday possible from Eliquis according to her daughter. Spoke to Dr. Barrett this morning, she recommended considering patient's dementia and her age we can keep her off anticoagulation due to risk of fall and having bleed. But if patient's family wants anticoagulation then she can be switched to Coumadin. Family wants to keep the patient overnight and watch for a rash from Eliquis. If patient did fail with Eliquis then she will be discharged tomorrow. If patient develops rash, then we will switch her to Lovenox. Review of Systems Constitutional: Denies: chills, fever. EENTM: Reports: no symptoms. Cardiovascular: Denies: chest pain, palpitations, syncope. Respiratory: Denies: cough, short of breath, sputum production. Gastrointestinal: Denies: abdominal pain, constipation, diarrhea, nausea, vomiting. Genitourinary: Reports: no symptoms. Neurological/Psychological: Reports: see HPI. Objective Last 24 Hrs of Vital Signs/I&O Vital Signs Date Time Temp Pulse Resp B/P B/P Pulse O2 O2 Flow FiO2 Mean Ox Delivery Rate 10/13 0907 130/78 10/13 0626 97.8 95 20 130/78 93 10/12 1459 98.1 99 20 140/80 94 Room Air Intake & Output 10/13 1600 10/13 0800 10/13 0000 Intake Total 50 50 Output Total Balance 50 50 Intake, Oral 50 50 Number 2 Bowel Movements Patient 154 lb Weight Weight Bed scale Measurement Method Physical Exam General Appearance: Alert, Cooperative Skin Temp/Moisture Exam: Warm/Dry Sepsis Skin Exam (color): Normal for Ethnicity HEENT: Atraumatic, EOMI Neck: Supple Cardiovascular: Normal S1, Normal S2 Lungs: Clear to Auscultation Abdomen: Soft, No Tenderness Neurological: Normal Speech, Normal Tone Extremities: No Edema Assessment/Plan Assessment: 86 YO F with PMH of baseline [place] dementia, hyperthyrodism w/ multiple thyroid nodules, HTN, Anxiety, T2DM who was recently discharged from [facility] 22 days ago on 09/13/2017 after being treated for about 6 days for a UTI. She was discharged to a short-term rehab but now presents back to the ED for concerns of worsening leukocytosis and hypokalemia. Patient went bilateral pulmonary embolism and left leg DVT. Follow the patient on telemetry floor for following problems: Bilateral pulmonary embolism and left leg DVT: -Patient remained hemodynamically stable and she is on room air maintaining saturation 97%. -Patient is on Eliquis 10 mg twice daily for 7 days and then she will get 5 mg twice daily. -Considering patient's complaint of rash from medical illness according to her daughter. If family wants the patient on anticoagulation she can be switched to Coumadin according to outside production inspector. Spoke to Dr. Buckley and he wants to keep eliquis and we will watch for if he develops a rash. -If she develops a rash traumatically this then we will start her on Lovenox therapeutic dose for PE. -Patient will follow hematology as outpatient for further workup coagulation workup. -Patient will follow pulmonology as outpatient. -Patient will go to short-term rehab as evaluated by physical therapy. Possibly being discharged today. Leukocytosis:(improving) -Possibly reactionary after pulmonary embolism. -Patient remained afebrile and her leukocytosis is getting better. -Patient is being followed off antibiotics. -Patient's C. difficile remained negative and she did not have any complaint of diarrhea. History of hypertension: -Continue lisinopril History of diabetes: -Continue Accu-Cheks, her fasting blood sugar level this morning was 153 -Continue insulin NovoLog according to sliding scale History of hyperthyroidism: -Continue methimazole DVT prophylaxis: Mechanical and patient is on eliquis CODE STATUS: Full code Problem List: 1. Bilateral pulmonary embolism Pain Ratin Pain Location: none Pain Goal: Remain pain free Pain Plan: pain pathway Tomorrow's Labs & Rationales: none
[2017-10-13 14:23] VITALS: BP 126/72
--- NOTE | 2017-10-13 15:13 | PN- Att Addend ---
Attending Addendum Attending Brief Note Patient was itchy last night not clear if she had a little rash. Was thought it could have been the Eliquis. Today patient has no new complaints. Vital signs are stable no fever. No new changes on physical. Discussed with the resident. Will rechallenge the Eliquis, and start disposition plans for the patient to go to short-term rehab again. Intake & Output 10/13 0400 10/12 1600 10/12 0400 10/11 1600 10/11 0400 Intake Total 530 50 200 200 832 110 Output Total Balance 530 50 200 200 832 110 Intake, IV 0 292 Intake, Oral 530 50 200 200 540 110 Number 4 2 2 2 Bowel Movements Patient 154 lb 156 lb 150 lb 150 lb Weight Weight Bed scale Bed scale Measurement Method Current Medications Sig/Shaquille Start time Last Medication Dose Route Stop Time Status Admin Acetaminophen 650 MG Q6PRN PRN 10/06 1600 AC 10/12 PO 2343 Apixaban 10 MG BID 10/11 1600 AC 10/13 PO 1337 Aspirin Buffered 81 MG DAILY 10/07 0900 AC 10/13 PO 0907 Diphenhydramine HCl 1 FARAZ DAILY 10/12 1846 AC 10/13 TOP 0908 Insulin Aspart 0 TIDAC 10/06 1700 AC 10/13 SC 1220 Lactobacillus 1 CAP DAILY 10/06 1604 AC 10/13 Acidophilus PO 0907 Lisinopril 2.5 MG DAILY 10/06 1604 AC 10/13 PO 0907 Lorazepam 0.5 MG BID 10/06 2100 AC 10/13 PO 10/13 2058 0907 Methimazole 5 MG DAILY 10/07 0900 AC 10/13 PO 0907 Mirtazapine 15 MG QPM 10/06 2100 AC 10/12 PO 1929 Montelukast Sodium 10 MG DAILY 10/07 0900 AC 10/13 PO 0907 Nystatin 1 FARAZ TID 10/09 1032 AC 10/13 TOP 1338 Omeprazole 40 MG DAILY AC 10/06 1605 AC 10/11 PO 0653 Laboratory Tests 10/12/17 0655: CBC w Diff NO MAN DIFF REQ, RBC 4.11 L, MCV 76.4 L, MCH 24.7 L, MCHC 32.3 L, RDW 17.4 H, MPV 6.6 L, Gran % 57.6, Lymphocytes % 34.7, Monocytes % 4.4, Eosinophils % 3.0, Basophils % 0.3, Absolute Granulocytes 8.0 H, Absolute Lymphocytes 4.8 H, Absolute Monocytes 0.6, Absolute Eosinophils 0.4, Absolute Basophils 0 10/11/17 1603: APTT 41 H 10/11/17 0930: APTT Cancelled 10/11/17 0640: Anion Gap 10, Estimated GFR > 60, BUN/Creatinine Ratio 5.0 L, Magnesium 1.3 L, APTT > 120 *H, CBC w Diff NO MAN DIFF REQ, RBC 4.38, MCV 76.8 L, MCH 25.2 L, MCHC 32.8 L, RDW 17.0 H, MPV 7.2 L, Gran % 55.1, Lymphocytes % 37.8, Monocytes % 3.3, Eosinophils % 3.3, Basophils % 0.5, Absolute Granulocytes 9.7 H, Absolute Lymphocytes 6.7 H, Absolute Monocytes 0.6, Absolute Eosinophils 0.6 , Absolute Basophils 0.1 10/11/17 0120: APTT 28 Vital Signs Date Time Temp Pulse Resp B/P B/P Pulse O2 O2 Flow FiO2 Mean Ox Delivery Rate 10/13 1423 97.2 100 20 126/72 93 Room Air 10/13 0907 130/78 10/13 0626 97.8 95 20 130/78 93
== END 2017-10-13 18:00 | DRG 299 ==
LOC: ERH 11:38 → 1NO 15:06 → ERHI 15:06 → ENRESERV 16:16 → CANRESERV 16:16 → ENRESERV 16:33 → ENTRNSPT 17:09 → EDTRNSPT 17:15 → EDTRNSPTSTS 17:32 → EDTRNSPT 17:32 → CMPTRNSPT 17:35 → 1NO 17:51 → ENPENDDIS 10-13 16:27 → 1NO 10-13 18:00
PROVIDERS: Emergency Medicine; General Practice; Internal Medicine; Internal Medicine Adolescent Medicine; Student in an Organized Health Care Education/Training Program
DX: I82.412 Acute embolism and thrombosis of left femoral vein (principal); I26.99 Other pulmonary embolism without acute cor pulmonale; G30.9 Alzheimer's disease, unspecified; F02.80 Dementia in other diseases classified elsewhere, unspecified severity, without behavioral disturbance, psychotic disturbance, mood disturbance, and anxiety; E11.9 Type 2 diabetes mellitus without complications; Z79.84 Long term (current) use of oral hypoglycemic drugs; D72.829 Elevated white blood cell count, unspecified; E87.6 Hypokalemia; E83.42 Hypomagnesemia; E05.20 Thyrotoxicosis with toxic multinodular goiter without thyrotoxic crisis or storm; F41.9 Anxiety disorder, unspecified; K21.9 Gastro-esophageal reflux disease without esophagitis; F32.9 Major depressive disorder, single episode, unspecified; Z90.49 Acquired absence of other specified parts of digestive tract; Z96.643 Presence of artificial hip joint, bilateral
CPT/HCPCS: 1NP; 36415; 36592; 71045; 74176; 81001; 82436; 87040; 87086; 87088; 93005; 93010; 93306; 93970; 96361; 96374; 97110-GO; 97161-GP; 97530-GO; 97530-GP; G8978-GP; G8979-GP; J0696; J1644; J1650